=== PATIENT | male | born 1950 | race Caucasian/White ===

== ENCOUNTER 2018-10-28 09:49 | Outpatient (REF) | payer MEDICARE, SELFPAY ==
[2018-10-28 12:19] LABS: Anion Gap 8.4 mmol/L (3-11); BUN 16 mg/dL (7-18); CO2 29.6 mmol/L (21.0-32.0); CREATININE 0.98 mg/dL (0.70-1.30); Chloride 106 mmol/L (98-107); Glucose 89 mg/dL (70-100); Potassium 4.4 mmol/L (3.5-5.1); Sodium 144 mmol/L (136-145)
[2018-10-29 09:39] LABS: PSA, Screening <0.1 ng/ml (0-4.5)
== END 2018-10-28 10:09 ==
LOC: NCHCN 09:49
PROVIDERS: PCP Internal Medicine; Visit Provider Internal Medicine
DX: I10 Essential (primary) hypertension (principal); Z12.5 Encounter for screening for malignant neoplasm of prostate
CPT/HCPCS: 80048; 84153

== ENCOUNTER 2019-10-25 08:50 | Outpatient (REF) | payer MEDICARE, SELFPAY ==
[2019-10-25 21:15] LABS: Anion Gap 8.8 mmol/L (3-11); BUN 14 mg/dL (7-18); CO2 28.2 mmol/L (21.0-32.0); CREATININE 0.97 mg/dL (0.70-1.30); Calcium 8.5 mg/dL (8.5-10.1); Chloride 105 mmol/L (98-107); Glucose 90 mg/dL (74-106); Potassium 4.5 mmol/L (3.5-5.1); Sodium 142 mmol/L (136-145)
[2019-10-27 09:02] LABS: PSA, Screening <0.1 ng/mL (0.0-4.5)
== END 2019-10-25 09:10 ==
LOC: NCHCN 08:50
PROVIDERS: PCP Internal Medicine; Visit Provider Internal Medicine
DX: I10 Essential (primary) hypertension (principal); C61 Malignant neoplasm of prostate
CPT/HCPCS: 80048; 84153

== ENCOUNTER 2020-02-22 12:03 | Outpatient (REF) | payer MEDICARE, SELFPAY ==
[2020-02-22 22:20] LABS: HGB 10.9 g/dL (13.5-17.5); MCH 32.4 pg (27.0-33.0); MCHC 31.1 % (32.0-36.0); MCV 104.2 fL (80-95); MPV 10.7 fL (8.0-11.0); RBC 3.36 10^6/uL (4.36-5.78); RDW 18.9 % (11.8-14.1); RDW-SD 70.7 fL; WBC 17.16 10^3/uL (4.4-10.8)
[2020-02-22 23:19] LABS: Platelet Count 64 10^3/uL (130-400)
== END 2020-02-22 12:23 ==
LOC: NCHCN 12:03
PROVIDERS: PCP Internal Medicine; Visit Provider Internal Medicine
DX: K62.5 Hemorrhage of anus and rectum (principal)
CPT/HCPCS: 85027

== ENCOUNTER 2020-02-23 11:00 | Outpatient (REF) | payer MEDICARE, SELFPAY ==
[2020-02-23 21:19] LABS: Basophils % 1.4; MCH 32.4 pg (27.0-33.0); Nucleated RBC 1 %
[2020-02-23 21:22] LABS: Abs Immature Grans 1.19 10^3/uL (0.0-0.06); HCT 35.1 % (40.0-50.0); HGB 10.9 g/dL (13.5-17.5); Immature Grans % 6.5; Lymphocytes % 21.7; MCHC 31.1 % (32.0-36.0); MCV 104.5 fL (80-95); MPV 10.9 fL (8.0-11.0); Monocytes % 20.1; Neutrophils % 48.3; RBC 3.36 10^6/uL (4.36-5.78); RDW 19.2 % (11.8-14.1); RDW-SD 71.6 fL; WBC 18.22 10^3/uL (4.4-10.8)
[2020-02-23 21:26] LABS: Prothrombin Time 9.9 sec (9.3-11.0)
[2020-02-23 21:47] LABS: Absolute Basophil Count 0.26 10^3/uL (0.0-0.2); Absolute Eosinophil Count 0.36 10^3/uL (0.0-0.7); Absolute Lymphocyte Count 3.95 10^3/uL (1.2-3.4); Absolute Monocyte Count 3.66 10^3/uL (0.1-0.8)
[2020-02-23 22:12] LABS: ALT 19 U/L (16-63); AST 19 U/L (15-37); Albumin 4.2 g/dL (3.4-5.0); Alkaline Phosphatase 156 U/L (46-116); Anion Gap 11.3 mmol/L (3-11); BUN 14 mg/dL (7-18); Bilirubin, Total 0.6 mg/dL (0.2-1.0); CO2 24.7 mmol/L (21.0-32.0); CREATININE 0.94 mg/dL (0.70-1.30); Calcium 8.6 mg/dL (8.5-10.1); Chloride 104 mmol/L (98-107); Glucose 94 mg/dL (74-106); Potassium 4.4 mmol/L (3.5-5.1); Sodium 140 mmol/L (136-145); Total Protein 7.2 g/dL (6.4-8.2)
[2020-02-23 22:14] LABS: Platelet Count 61 10^3/uL (130-400)
[2020-02-23 22:15] LABS: Anisocytosis 3+; Diff Comment PLT Morph Reviewed; Macrocytosis 3+; Stomatocytes 2+
[2020-02-23 22:37] LABS: LDH 362 U/L (85-227)
[2020-02-23 23:16] LABS: Folate 7.5 ng/mL (8.6-20.0)
[2020-02-23 23:20] LABS: Vitamin B12 > 2000 pg/mL (193-986)
[2020-02-28 00:07] LABS: Beta-2-Microglobulin 2.66 mcg/mL
[2020-03-13 15:37] LABS: Haptoglobin 20 mg/dL (30-200)
== END 2020-02-23 11:20 ==
LOC: NCHCN 11:00
PROVIDERS: PCP Internal Medicine; Visit Provider Internal Medicine
DX: D69.6 Thrombocytopenia, unspecified (principal); D53.9 Nutritional anemia, unspecified; K62.5 Hemorrhage of anus and rectum
CPT/HCPCS: 80053; 82232; 82607; 82746; 83010; 83615; 85025; 85045; 85610

== ENCOUNTER 2020-04-12 02:29 | Outpatient (RCR) | payer MEDICARE, SELFPAY ==
[2020-04-09 08:48] LABS: Absolute Basophil Count 0.01 10^3/uL (0.0-0.2); Absolute Eosinophil Count 0.03 10^3/uL (0.0-0.7); Absolute Lymphocyte Count 1.18 10^3/uL (1.2-3.4); Absolute Monocyte Count 1.18 10^3/uL (0.1-0.8); Basophils % 0.4; Eosinophils % 1.1; HCT 33.1 % (40.0-50.0); HGB 10.7 g/dL (13.5-17.5); Immature Grans % 0.4; Lymphocytes % 43.9; MCH 32.5 pg (27.0-33.0); MCHC 32.3 % (32.0-36.0); MCV 100.6 fL (80-95); MPV 9.2 fL (8.0-11.0); Monocytes % 43.9; Neutrophils % 10.3; RBC 3.29 10^6/uL (4.36-5.78); RDW 17.6 % (11.8-14.1); RDW-SD 62.4 fL; WBC 2.69 10^3/uL (4.4-10.8)
[2020-04-09 09:00] LABS: ALT 23 U/L (16-63); AST 16 U/L (15-37); Alkaline Phosphatase 82 U/L (46-116); Anion Gap 8.3 mmol/L (3-11); BUN 11 mg/dL (7-18); CO2 26.7 mmol/L (21.0-32.0); CREATININE 1.22 mg/dL (0.70-1.30); Calcium 8.6 mg/dL (8.5-10.1); Chloride 103 mmol/L (98-107); Estimated GFR 58.73 (mL/min/1.73m2); Glucose 126 mg/dL (74-106); Potassium 3.9 mmol/L (3.5-5.1); Sodium 138 mmol/L (136-145); Total Protein 7.3 g/dL (6.4-8.2)
[2020-04-09 09:14] LABS: Absolute Neutrophil Count 0.28 10^3/uL (1.2-6.7); Nucleated RBC 0 %; Platelet Count 37 10^3/uL (130-400)
[2020-04-09 09:15] LABS: Anisocytosis 2+; Diff Comment Diff Reviewed; Howell-Jolly Bodies Present; Hypochromasia 1+; Macrocytosis 1+; Microcytosis 1+; Polychromasia Present
[2020-04-12 08:50] LABS: Abs Immature Grans 0.02 10^3/uL (0.0-0.06); Absolute Eosinophil Count 0.03 10^3/uL (0.0-0.7); Absolute Lymphocyte Count 1.44 10^3/uL (1.2-3.4); Absolute Monocyte Count 1.35 10^3/uL (0.1-0.8); HCT 35.1 % (40.0-50.0); HGB 10.9 g/dL (13.5-17.5); Immature Grans % 0.6; Lymphocytes % 46.5; MCH 32.2 pg (27.0-33.0); MCHC 31.1 % (32.0-36.0); MCV 103.5 fL (80-95); MPV 10.2 fL (8.0-11.0); Monocytes % 43.5; Neutrophils % 8.4; Nucleated RBC 1 %; RBC 3.39 10^6/uL (4.36-5.78); RDW 18.5 % (11.8-14.1); RDW-SD 69.9 fL
[2020-04-12 09:09] LABS: ALT 20 U/L (16-63); AST 14 U/L (15-37); Alkaline Phosphatase 85 U/L (46-116); BUN 12 mg/dL (7-18); Bilirubin, Total 0.9 mg/dL (0.2-1.0); CREATININE 1.11 mg/dL (0.70-1.30); Calcium 8.6 mg/dL (8.5-10.1); Chloride 102 mmol/L (98-107); Glucose 116 mg/dL (74-106); Potassium 3.8 mmol/L (3.5-5.1); Sodium 137 mmol/L (136-145); Total Protein 7.5 g/dL (6.4-8.2)
[2020-04-12 09:11] LABS: Anisocytosis 2+; Diff Comment Agrees w/ Instrument
[2020-04-12 09:12] LABS: Macrocytosis 2+; Poikilocytes 1+; Polychromasia Present
[2020-04-12 09:14] LABS: Absolute Neutrophil Count 0.26 10^3/uL (1.2-6.7); Platelet Count 24 10^3/uL (130-400)
== END 2020-04-12 23:59 | disposition home or self-care (01) ==
LOC: INF 02:29
PROVIDERS: Internal Medicine; PCP Internal Medicine; Visit Provider Internal Medicine Hematology & Oncology
DX: C81.90 Hodgkin lymphoma, unspecified, unspecified site (principal)
CPT/HCPCS: 36415; 80053; 86850; 86900; 86901; 85025

== ENCOUNTER 2020-05-10 02:21 | Outpatient (RCR) | payer MEDICARE, SELFPAY ==
[2020-04-20 09:28] LABS: Abs Immature Grans 0.02 10^3/uL (0.0-0.06); Absolute Basophil Count 0.02 10^3/uL (0.0-0.2); Absolute Eosinophil Count 0.03 10^3/uL (0.0-0.7); Absolute Lymphocyte Count 1.36 10^3/uL (1.2-3.4); Absolute Monocyte Count 1.13 10^3/uL (0.1-0.8); Basophils % 0.7; Eosinophils % 1.1; HCT 37.2 % (40.0-50.0); HGB 11.6 g/dL (13.5-17.5); Immature Grans % 0.7; Lymphocytes % 47.9; MCH 32.2 pg (27.0-33.0); MCHC 31.2 % (32.0-36.0); MCV 103.3 fL (80-95); MPV 10.1 fL (8.0-11.0); Monocytes % 39.8; Neutrophils % 9.8; Nucleated RBC 0 %; RDW 18.2 % (11.8-14.1); WBC 2.84 10^3/uL (4.4-10.8)
[2020-04-20 09:39] LABS: ALT 24 U/L (16-63); AST 15 U/L (15-37); Alkaline Phosphatase 91 U/L (46-116); Anion Gap 9.5 mmol/L (3-11); BUN 10 mg/dL (7-18); Bilirubin, Total 0.7 mg/dL (0.2-1.0); CO2 26.5 mmol/L (21.0-32.0); CREATININE 1.11 mg/dL (0.70-1.30); Calcium 8.7 mg/dL (8.5-10.1); Chloride 103 mmol/L (98-107); Glucose 107 mg/dL (74-106); Potassium 3.5 mmol/L (3.5-5.1); Sodium 139 mmol/L (136-145); Total Protein 7.7 g/dL (6.4-8.2)
[2020-04-20 09:53] LABS: Anisocytosis 1+; Diff Comment Diff Reviewed; Macrocytosis 1+; Polychromasia Present
[2020-04-20 09:54] LABS: Poikilocytes 1+
[2020-04-20 09:56] LABS: Absolute Neutrophil Count 0.28 10^3/uL (1.2-6.7); Platelet Count 28 10^3/uL (130-400)
[2020-04-23 08:38] LABS: Abs Immature Grans 0.01 10^3/uL (0.0-0.06); Absolute Basophil Count 0.01 10^3/uL (0.0-0.2); Absolute Eosinophil Count 0.01 10^3/uL (0.0-0.7); Absolute Lymphocyte Count 1.32 10^3/uL (1.2-3.4); Absolute Monocyte Count 0.77 10^3/uL (0.1-0.8); Basophils % 0.4; Eosinophils % 0.4; HGB 11.8 g/dL (13.5-17.5); Immature Grans % 0.4; Lymphocytes % 55.5; MCH 31.9 pg (27.0-33.0); MCHC 31.1 % (32.0-36.0); MCV 102.7 fL (80-95); MPV 9.3 fL (8.0-11.0); Monocytes % 32.4; Neutrophils % 10.9; Nucleated RBC 0 %; RDW 17.7 % (11.8-14.1); RDW-SD 67.6 fL; WBC 2.38 10^3/uL (4.4-10.8)
[2020-04-23 09:10] LABS: ALT 25 U/L (16-63); AST 17 U/L (15-37); Albumin 3.9 g/dL (3.4-5.0); Alkaline Phosphatase 90 U/L (46-116); Anion Gap 6.8 mmol/L (3-11); BUN 9 mg/dL (7-18); Bilirubin, Total 0.9 mg/dL (0.2-1.0); CO2 27.2 mmol/L (21.0-32.0); CREATININE 1.09 mg/dL (0.70-1.30); Calcium 8.5 mg/dL (8.5-10.1); Chloride 103 mmol/L (98-107); Glucose 118 mg/dL (74-106); Potassium 3.5 mmol/L (3.5-5.1); Sodium 137 mmol/L (136-145); Total Protein 7.4 g/dL (6.4-8.2)
[2020-04-23 09:26] LABS: Absolute Neutrophil Count 0.26 10^3/uL (1.2-6.7)
[2020-04-23 09:28] LABS: Diff Comment Agrees w/ Instrument; Platelet Count 30 10^3/uL (130-400)
[2020-04-23 09:29] LABS: Anisocytosis 2+; Basophilic Stippling Present; Hypochromasia 1+; Polychromasia Present
[2020-04-26 08:32] LABS: Abs Immature Grans 0.03 10^3/uL (0.0-0.06); Absolute Basophil Count 0.03 10^3/uL (0.0-0.2); Absolute Eosinophil Count 0.01 10^3/uL (0.0-0.7); Absolute Lymphocyte Count 1.12 10^3/uL (1.2-3.4); Absolute Monocyte Count 0.47 10^3/uL (0.1-0.8); Basophils % 1.5; Eosinophils % 0.5; HCT 36.5 % (40.0-50.0); HGB 11.3 g/dL (13.5-17.5); Immature Grans % 1.5; Lymphocytes % 57.7; MCH 31.6 pg (27.0-33.0); MPV 9.5 fL (8.0-11.0); Monocytes % 24.2; Neutrophils % 14.6; Nucleated RBC 0 %; Platelet Count 37 10^3/uL (130-400); RBC 3.58 10^6/uL (4.36-5.78); RDW 16.9 % (11.8-14.1); RDW-SD 63.7 fL
[2020-04-26 08:44] LABS: ALT 20 U/L (16-63); AST 14 U/L (15-37); Albumin 3.7 g/dL (3.4-5.0); Alkaline Phosphatase 89 U/L (46-116); Anion Gap 7.7 mmol/L (3-11); BUN 11 mg/dL (7-18); Bilirubin, Total 0.8 mg/dL (0.2-1.0); CO2 27.3 mmol/L (21.0-32.0); CREATININE 1.12 mg/dL (0.70-1.30); Calcium 8.5 mg/dL (8.5-10.1); Chloride 104 mmol/L (98-107); Glucose 117 mg/dL (74-106); Potassium 3.7 mmol/L (3.5-5.1); Sodium 139 mmol/L (136-145); Total Protein 7.2 g/dL (6.4-8.2)
[2020-04-26 08:54] LABS: Absolute Neutrophil Count 0.28 10^3/uL (1.2-6.7); WBC 1.94 10^3/uL (4.4-10.8)
[2020-04-26 08:55] LABS: Diff Comment Diff Reviewed; Macrocytosis 1+; Polychromasia Present
[2020-04-30 08:46] LABS: Abs Immature Grans 0.04 10^3/uL (0.0-0.06); Absolute Basophil Count 0.03 10^3/uL (0.0-0.2); Absolute Eosinophil Count 0.02 10^3/uL (0.0-0.7); Absolute Lymphocyte Count 1.27 10^3/uL (1.2-3.4); Absolute Monocyte Count 0.32 10^3/uL (0.1-0.8); Basophils % 1.5; HCT 36.8 % (40.0-50.0); HGB 11.4 g/dL (13.5-17.5); Lymphocytes % 63.5; MCH 30.9 pg (27.0-33.0); MCV 99.7 fL (80-95); MPV 8.8 fL (8.0-11.0); Nucleated RBC 0 %; Platelet Count 44 10^3/uL (130-400); RBC 3.69 10^6/uL (4.36-5.78); RDW 16.5 % (11.8-14.1); RDW-SD 60.5 fL
[2020-04-30 09:01] LABS: ALT 21 U/L (16-63); AST 14 U/L (15-37); Albumin 3.7 g/dL (3.4-5.0); Alkaline Phosphatase 83 U/L (46-116); Anion Gap 8.8 mmol/L (3-11); BUN 11 mg/dL (7-18); Bilirubin, Total 0.6 mg/dL (0.2-1.0); CO2 27.2 mmol/L (21.0-32.0); CREATININE 1.09 mg/dL (0.70-1.30); Calcium 8.5 mg/dL (8.5-10.1); Chloride 106 mmol/L (98-107); Glucose 123 mg/dL (74-106); Potassium 3.7 mmol/L (3.5-5.1); Sodium 142 mmol/L (136-145); Total Protein 7.2 g/dL (6.4-8.2)
[2020-04-30 09:06] LABS: Absolute Neutrophil Count 0.32 10^3/uL (1.2-6.7)
[2020-04-30 09:07] LABS: Anisocytosis 1+; Diff Comment Diff Reviewed; Hypochromasia 1+; Polychromasia Present
[2020-04-30 09:08] LABS: Basophilic Stippling Present; Stomatocytes 2+
[2020-05-07] MEDS: Normal Saline Flush 10 ML SYR IVP (13:00)
[2020-05-07 13:24] LABS: Abs Immature Grans 0.05 10^3/uL (0.0-0.06); Absolute Basophil Count 0.07 10^3/uL (0.0-0.2); Absolute Eosinophil Count 0.02 10^3/uL (0.0-0.7); Absolute Lymphocyte Count 1.53 10^3/uL (1.2-3.4); Absolute Monocyte Count 0.52 10^3/uL (0.1-0.8); Absolute Neutrophil Count 0.66 10^3/uL (1.2-6.7); Basophils % 2.5; Eosinophils % 0.7; HCT 38.2 % (40.0-50.0); Immature Grans % 1.8; Lymphocytes % 53.7; MCH 30.2 pg (27.0-33.0); MCHC 31.4 % (32.0-36.0); MPV 10.1 fL (8.0-11.0); Monocytes % 18.2; Neutrophils % 23.1; Nucleated RBC 0 %; RBC 3.98 10^6/uL (4.36-5.78); RDW 15.7 % (11.8-14.1); RDW-SD 55.9 fL; WBC 2.85 10^3/uL (4.4-10.8)
[2020-05-07 13:36] LABS: ALT 19 U/L (16-63); AST 17 U/L (15-37); Albumin 3.7 g/dL (3.4-5.0); Alkaline Phosphatase 95 U/L (46-116); Anion Gap 5.8 mmol/L (3-11); BUN 10 mg/dL (7-18); Bilirubin, Total 0.6 mg/dL (0.2-1.0); CO2 27.2 mmol/L (21.0-32.0); CREATININE 1.29 mg/dL (0.70-1.30); Calcium 8.5 mg/dL (8.5-10.1); Chloride 103 mmol/L (98-107); Estimated GFR 55.06 (mL/min/1.73m2); Glucose 124 mg/dL (74-106); Sodium 136 mmol/L (136-145); Total Protein 7.5 g/dL (6.4-8.2)
[2020-05-07 13:52] LABS: Platelet Count 42 10^3/uL (130-400)
[2020-05-07 13:53] LABS: Diff Comment Diff Reviewed
[2020-05-07 13:54] LABS: Anisocytosis 1+; Basophilic Stippling Present; Poikilocytes 2+; Polychromasia Present
[2020-05-10] MEDS: Normal Saline Flush 10 ML SYR IVP (12:58)
[2020-05-10 13:11] LABS: Abs Immature Grans 0.04 10^3/uL (0.0-0.06); HCT 37.2 % (40.0-50.0); HGB 11.6 g/dL (13.5-17.5); MCH 29.7 pg (27.0-33.0); MCHC 31.2 % (32.0-36.0); MCV 95.1 fL (80-95); MPV 10.4 fL (8.0-11.0); Nucleated RBC 0 %; RBC 3.91 10^6/uL (4.36-5.78); RDW 15.7 % (11.8-14.1); RDW-SD 54.9 fL; WBC 2.95 10^3/uL (4.4-10.8)
[2020-05-10 13:19] LABS: Anion Gap 9.7 mmol/L (3-11); BUN 12 mg/dL (7-18); CO2 24.3 mmol/L (21.0-32.0); CREATININE 1.2 mg/dL (0.70-1.30); Calcium 8.5 mg/dL (8.5-10.1); Chloride 99 mmol/L (98-107); Estimated GFR 59.86 (mL/min/1.73m2); Glucose 158 mg/dL (74-106); Potassium 3.7 mmol/L (3.5-5.1); Sodium 133 mmol/L (136-145)
[2020-05-10 13:38] LABS: Platelet Count 46 10^3/uL (130-400)
[2020-05-10 13:39] LABS: Absolute Neutrophil Count 0.77 10^3/uL (1.2-6.7); Bands % 0
[2020-05-10 13:40] LABS: Absolute Lymphocyte Count 1.48 10^3/uL (1.2-3.4); Absolute Monocyte Count 0.71 10^3/uL (0.1-0.8); Atypical Lymphocytes % 17; Diff Comment Manual Differential; Hypochromasia 1+; Polychromasia Present; Stomatocytes 2+
[2020-05-10 13:41] LABS: Poikilocytes 2+
== END 2020-05-13 23:59 | disposition home or self-care (01) ==
LOC: INF 02:21
PROVIDERS: PCP Internal Medicine; Visit Provider Internal Medicine Hematology
DX: C92.A0 Acute myeloid leukemia with multilineage dysplasia, not having achieved remission (principal); C81.90 Hodgkin lymphoma, unspecified, unspecified site; C92.00 Acute myeloblastic leukemia, not having achieved remission; C92.40 Acute promyelocytic leukemia, not having achieved remission
CPT/HCPCS: 36415; 36591; 80048; 80053; 86900; 86901; 84550; 85025

== ENCOUNTER 2020-06-07 02:43 | Outpatient (RCR) | payer MEDICARE, SELFPAY ==
[2020-05-14] MEDS: Normal Saline Flush 10 ML SYR IVP (13:15)
[2020-05-14 13:27] LABS: Abs Immature Grans 0.01 10^3/uL (0.0-0.06); Absolute Basophil Count 0.01 10^3/uL (0.0-0.2); Absolute Lymphocyte Count 1.21 10^3/uL (1.2-3.4); Absolute Neutrophil Count 0.52 10^3/uL (1.2-6.7); Basophils % 0.4; HCT 35.6 % (40.0-50.0); HGB 11.2 g/dL (13.5-17.5); Immature Grans % 0.4; Lymphocytes % 53.8; MCH 29.2 pg (27.0-33.0); MCHC 31.5 % (32.0-36.0); MCV 92.7 fL (80-95); MPV 10.1 fL (8.0-11.0); Monocytes % 22.2; Neutrophils % 23.2; Nucleated RBC 0 %; RBC 3.84 10^6/uL (4.36-5.78); RDW 15.6 % (11.8-14.1); RDW-SD 52.7 fL; WBC 2.25 10^3/uL (4.4-10.8)
[2020-05-14 13:35] LABS: Anion Gap 10.5 mmol/L (3-11); BUN 16 mg/dL (7-18); CO2 24.5 mmol/L (21.0-32.0); CREATININE 1.1 mg/dL (0.70-1.30); Calcium 8.6 mg/dL (8.5-10.1); Chloride 102 mmol/L (98-107); Glucose 144 mg/dL (74-106); Potassium 3.7 mmol/L (3.5-5.1); Sodium 137 mmol/L (136-145); Uric Acid 4.7 mg/dL (3.5-7.2)
[2020-05-14 13:36] LABS: Anisocytosis 1+; Diff Comment Diff Reviewed; Platelet Count 46 10^3/uL (130-400)
[2020-05-14 13:37] LABS: Poikilocytes 1+
[2020-05-17 09:00] LABS: Abs Immature Grans 0.01 10^3/uL (0.0-0.06); Absolute Basophil Count 0.01 10^3/uL (0.0-0.2); Absolute Lymphocyte Count 1.35 10^3/uL (1.2-3.4); Absolute Monocyte Count 0.41 10^3/uL (0.1-0.8); Absolute Neutrophil Count 0.65 10^3/uL (1.2-6.7); Basophils % 0.4; HCT 34.6 % (40.0-50.0); HGB 10.9 g/dL (13.5-17.5); Immature Grans % 0.4; Lymphocytes % 55.6; MCH 29.1 pg (27.0-33.0); MCHC 31.5 % (32.0-36.0); MCV 92.5 fL (80-95); MPV 9.9 fL (8.0-11.0); Monocytes % 16.9; Neutrophils % 26.7; Nucleated RBC 0 %; RBC 3.74 10^6/uL (4.36-5.78); RDW 15.4 % (11.8-14.1); RDW-SD 52.1 fL; WBC 2.43 10^3/uL (4.4-10.8)
[2020-05-17 09:03] LABS: Anion Gap 6.2 mmol/L (3-11); BUN 10 mg/dL (7-18); CO2 27.8 mmol/L (21.0-32.0); CREATININE 1.1 mg/dL (0.70-1.30); Calcium 8.7 mg/dL (8.5-10.1); Chloride 105 mmol/L (98-107); Glucose 118 mg/dL (74-106); Potassium 3.6 mmol/L (3.5-5.1); Sodium 139 mmol/L (136-145); Uric Acid 4.3 mg/dL (3.5-7.2)
[2020-05-17 09:21] LABS: Platelet Count 38 10^3/uL (130-400)
[2020-05-17 09:22] LABS: Anisocytosis 1+; Diff Comment Diff Reviewed; Polychromasia Present
[2020-05-21] MEDS: Normal Saline Flush 10 ML SYR IVP ×2 (08:37→14:53)
[2020-05-21 08:50] LABS: Abs Immature Grans 0.01 10^3/uL (0.0-0.06); Absolute Lymphocyte Count 1.04 10^3/uL (1.2-3.4); Absolute Monocyte Count 0.48 10^3/uL (0.1-0.8); HCT 33.7 % (40.0-50.0); HGB 10.6 g/dL (13.5-17.5); Immature Grans % 0.6; Lymphocytes % 58.8; MCH 29.2 pg (27.0-33.0); MCHC 31.5 % (32.0-36.0); MCV 92.8 fL (80-95); MPV 9.9 fL (8.0-11.0); Monocytes % 27.1; Neutrophils % 13.5; Nucleated RBC 0 %; RBC 3.63 10^6/uL (4.36-5.78); RDW 15.9 % (11.8-14.1)
[2020-05-21 09:04] LABS: Anion Gap 8.1 mmol/L (3-11); BUN 10 mg/dL (7-18); CO2 24.9 mmol/L (21.0-32.0); CREATININE 0.9 mg/dL (0.70-1.30); Chloride 107 mmol/L (98-107); Glucose 115 mg/dL (74-106); Potassium 3.8 mmol/L (3.5-5.1); Sodium 140 mmol/L (136-145)
[2020-05-21 09:21] LABS: Platelet Count 12 10^3/uL (130-400); WBC 1.77 10^3/uL (4.4-10.8)
[2020-05-21 09:22] LABS: Absolute Neutrophil Count 0.24 10^3/uL (1.2-6.7); Anisocytosis 1+; Diff Comment Diff Reviewed; Hypochromasia 1+
[2020-05-21 09:23] LABS: Polychromasia Present
[2020-05-21 13:35] VITALS: BP 108/71; PULSE 82; RESP 19; TEMP 36.7; O2SAT 96
[2020-05-21 13:51] VITALS: BP 107/69; PULSE 79; RESP 16; TEMP 36.5; O2SAT 96
[2020-05-24] MEDS: Normal Saline Flush 10 ML SYR IVP ×2 (08:24→13:38)
[2020-05-24 08:40] LABS: Lymphocytes % 58.8; MCH 29.2 pg (27.0-33.0); MCHC 31.3 % (32.0-36.0); MCV 93.6 fL (80-95); MPV 10.1 fL (8.0-11.0); Monocytes % 23.5; Neutrophils % 17.7; Nucleated RBC 0 %; RBC 3.42 10^6/uL (4.36-5.78); RDW 16.5 % (11.8-14.1)
[2020-05-24 08:50] LABS: Anion Gap 8.1 mmol/L (3-11); BUN 10 mg/dL (7-18); CO2 25.9 mmol/L (21.0-32.0); CREATININE 0.9 mg/dL (0.70-1.30); Calcium 8.3 mg/dL (8.5-10.1); Chloride 106 mmol/L (98-107); Glucose 113 mg/dL (74-106); Potassium 3.9 mmol/L (3.5-5.1); Sodium 140 mmol/L (136-145)
[2020-05-24 09:05] LABS: Diff Comment Agrees w/ Instrument
[2020-05-24 09:10] LABS: Platelet Count 11 10^3/uL (130-400)
[2020-05-24 09:11] LABS: Hypochromasia 2+
[2020-05-24 09:12] LABS: Poikilocytes 1+
[2020-05-24 09:14] LABS: Uric Acid 4.9 mg/dL (3.5-7.2)
[2020-05-24 13:09] VITALS: BP 113/76; PULSE 79; RESP 18; TEMP 36; O2SAT 99
[2020-05-24 13:31] VITALS: BP 114/64; PULSE 77; RESP 18; TEMP 36.6; O2SAT 98
[2020-05-28 08:49] LABS: Abs Immature Grans 0.01 10^3/uL (0.0-0.06); Absolute Basophil Count 0.01 10^3/uL (0.0-0.2); Absolute Lymphocyte Count 1.13 10^3/uL (1.2-3.4); Absolute Monocyte Count 0.17 10^3/uL (0.1-0.8); Basophils % 0.6; HCT 30.5 % (40.0-50.0); HGB 9.7 g/dL (13.5-17.5); Immature Grans % 0.6; Lymphocytes % 64.9; MCH 29.4 pg (27.0-33.0); MCHC 31.8 % (32.0-36.0); MCV 92.4 fL (80-95); MPV 9.7 fL (8.0-11.0); Monocytes % 9.8; Neutrophils % 24.1; Nucleated RBC 0 %; RDW 16.3 % (11.8-14.1); RDW-SD 54.5 fL
[2020-05-28 09:02] LABS: Anion Gap 7.3 mmol/L (3-11); BUN 13 mg/dL (7-18); CO2 24.7 mmol/L (21.0-32.0); Calcium 8.3 mg/dL (8.5-10.1); Chloride 105 mmol/L (98-107); Glucose 114 mg/dL (74-106); Potassium 3.7 mmol/L (3.5-5.1); Sodium 137 mmol/L (136-145)
[2020-05-28 09:13] LABS: Uric Acid 4.5 mg/dL (3.5-7.2)
[2020-05-28 09:40] LABS: Absolute Neutrophil Count 0.42 10^3/uL (1.2-6.7); WBC 1.74 10^3/uL (4.4-10.8)
[2020-05-28 09:42] LABS: Diff Comment Agrees w/ Instrument; Platelet Count 8 10^3/uL (130-400)
[2020-05-28 09:44] LABS: Anisocytosis 2+; Hypochromasia 1+; Stomatocytes 2+
[2020-05-28 13:12] VITALS: BP 111/70; PULSE 89; RESP 19; TEMP 36.6; O2SAT 97
[2020-05-28] MEDS: Normal Saline Flush 10 ML SYR IVP (14:02)
[2020-05-31] MEDS: Normal Saline Flush 10 ML SYR IVP (08:20)
[2020-05-31 08:45] LABS: Abs Immature Grans 0.01 10^3/uL (0.0-0.06); HCT 27.2 % (40.0-50.0); HGB 8.6 g/dL (13.5-17.5); MCH 28.7 pg (27.0-33.0); MCHC 31.6 % (32.0-36.0); MCV 90.7 fL (80-95); MPV 10.7 fL (8.0-11.0); Nucleated RBC 0 %; RDW-SD 51.8 fL
[2020-05-31 08:54] LABS: Anion Gap 8.1 mmol/L (3-11); BUN 12 mg/dL (7-18); CO2 25.9 mmol/L (21.0-32.0); CREATININE 0.9 mg/dL (0.70-1.30); Calcium 8.3 mg/dL (8.5-10.1); Chloride 106 mmol/L (98-107); Glucose 98 mg/dL (74-106); Potassium 4.1 mmol/L (3.5-5.1); Sodium 140 mmol/L (136-145); Uric Acid 4.4 mg/dL (3.5-7.2)
[2020-05-31 09:26] LABS: Platelet Count 7 10^3/uL (130-400)
[2020-05-31 09:27] LABS: Absolute Lymphocyte Count 1.17 10^3/uL (1.2-3.4); Absolute Monocyte Count 0.03 10^3/uL (0.1-0.8); Atypical Lymphocytes % 0; Bands % 0
[2020-05-31 09:28] LABS: Anisocytosis 2+; Basophilic Stippling Present; Diff Comment Manual Differential; Hypochromasia 2+; Polychromasia Present
[2020-05-31 13:12] VITALS: BP 110/66; PULSE 81; RESP 16; TEMP 36.7; O2SAT 96
[2020-05-31 13:30] VITALS: BP 117/70; PULSE 81; RESP 18; TEMP 36.2; O2SAT 99
[2020-06-07 08:41] LABS: Absolute Basophil Count 0.02 10^3/uL (0.0-0.2); Absolute Eosinophil Count 0.01 10^3/uL (0.0-0.7); Absolute Lymphocyte Count 1.12 10^3/uL (1.2-3.4); Absolute Monocyte Count 0.09 10^3/uL (0.1-0.8); Basophils % 1.4; Eosinophils % 0.7; HCT 24.9 % (40.0-50.0); HGB 8.3 g/dL (13.5-17.5); Lymphocytes % 77.8; MCH 29.1 pg (27.0-33.0); MCHC 33.3 % (32.0-36.0); MCV 87.4 fL (80-95); Monocytes % 6.3; Neutrophils % 13.8; Nucleated RBC 0 %; RBC 2.85 10^6/uL (4.36-5.78); RDW 15.5 % (11.8-14.1); RDW-SD 48.6 fL
[2020-06-07 08:49] LABS: Anion Gap 7.3 mmol/L (3-11); BUN 14 mg/dL (7-18); CO2 25.7 mmol/L (21.0-32.0); CREATININE 0.9 mg/dL (0.70-1.30); Calcium 8.5 mg/dL (8.5-10.1); Chloride 105 mmol/L (98-107); Glucose 114 mg/dL (74-106); Potassium 3.7 mmol/L (3.5-5.1); Sodium 138 mmol/L (136-145); Uric Acid 3.8 mg/dL (3.5-7.2)
[2020-06-07 09:03] LABS: Platelet Count 31 10^3/uL (130-400)
[2020-06-07 09:04] LABS: Diff Comment Agrees w/ Instrument
[2020-06-07 09:05] LABS: Anisocytosis 1+; Basophilic Stippling Present; Hypochromasia 2+; Poikilocytes 1+; Polychromasia Present
[2020-06-07 09:07] LABS: WBC 1.44 10^3/uL (4.4-10.8)
[2020-06-07] MEDS: Normal Saline Flush 10 ML SYR IVP (09:15)
== END 2020-06-10 23:59 | disposition home or self-care (01) ==
LOC: INF 02:43
PROVIDERS: PCP Internal Medicine; Visit Provider Internal Medicine Hematology
DX: C92.00 Acute myeloblastic leukemia, not having achieved remission (principal); Z45.2 Encounter for adjustment and management of vascular access device
CPT/HCPCS: 36415; 36430; 36591; 80048; 86850; 86900; 86901; 86945; 84550; 85025; P9035

== ENCOUNTER 2020-07-09 02:57 | Outpatient (RCR) | payer MEDICARE, SELFPAY ==
[2020-06-11] VITALS (9 sets, daily range): BP systolic 103–118; BP diastolic 51–71; PULSE 72–82; RESP 16–18; TEMP 36.2–37.1; O2SAT 96–100
[2020-06-11] MEDS: Normal Saline Flush 10 ML SYR IVP (09:07)
[2020-06-11 09:22] LABS: HGB 7.6 g/dL (13.5-17.5); MCH 28.8 pg (27.0-33.0); MCV 87.1 fL (80-95); MPV 9.6 fL (8.0-11.0); Nucleated RBC 0 %; Platelet Count 38 10^3/uL (130-400); RBC 2.64 10^6/uL (4.36-5.78); RDW 15.5 % (11.8-14.1); RDW-SD 47.3 fL
[2020-06-11 09:31] LABS: BUN 13 mg/dL (7-18); Calcium 8.3 mg/dL (8.5-10.1); Chloride 104 mmol/L (98-107); Glucose 131 mg/dL (74-106); Sodium 136 mmol/L (136-145); Uric Acid 4.2 mg/dL (3.5-7.2)
[2020-06-11 09:50] LABS: Absolute Neutrophil Count 0.15 10^3/uL (1.2-6.7); WBC 1.39 10^3/uL (4.4-10.8)
[2020-06-11 09:51] LABS: Absolute Lymphocyte Count 1.15 10^3/uL (1.2-3.4); Bands % 3
[2020-06-11 09:52] LABS: Absolute Basophil Count 0.03 10^3/uL (0.0-0.2); Absolute Monocyte Count 0.06 10^3/uL (0.1-0.8)
[2020-06-11 09:53] LABS: Basophilic Stippling Present; Diff Comment Manual Differential; Polychromasia Present
[2020-06-14 09:19] LABS: Abs Immature Grans 0.02 10^3/uL (0.0-0.06); HCT 24.5 % (40.0-50.0); HGB 8.2 g/dL (13.5-17.5); MCH 29.2 pg (27.0-33.0); MCHC 33.5 % (32.0-36.0); MCV 87.2 fL (80-95); MPV 9.6 fL (8.0-11.0); RBC 2.81 10^6/uL (4.36-5.78); RDW 16.1 % (11.8-14.1); RDW-SD 47.5 fL; WBC 2.42 10^3/uL (4.4-10.8)
[2020-06-14 09:28] LABS: Anion Gap 8.7 mmol/L (3-11); BUN 13 mg/dL (7-18); CO2 24.3 mmol/L (21.0-32.0); CREATININE 0.9 mg/dL (0.70-1.30); Calcium 8.3 mg/dL (8.5-10.1); Chloride 103 mmol/L (98-107); Glucose 122 mg/dL (74-106); Potassium 3.7 mmol/L (3.5-5.1); Sodium 136 mmol/L (136-145); Uric Acid 4.3 mg/dL (3.5-7.2)
[2020-06-14 09:41] LABS: Platelet Count 44 10^3/uL (130-400)
[2020-06-14 09:42] LABS: Absolute Basophil Count 0.02 10^3/uL (0.0-0.2); Absolute Eosinophil Count 0.02 10^3/uL (0.0-0.7); Absolute Lymphocyte Count 1.28 10^3/uL (1.2-3.4); Absolute Monocyte Count 0.19 10^3/uL (0.1-0.8); Absolute Neutrophil Count 0.87 10^3/uL (1.2-6.7); Bands % 2; Metamyelocytes % 1; Nucleated RBC 0 %
[2020-06-14 09:43] LABS: Anisocytosis 2+; Diff Comment Manual Differential; Polychromasia Present
[2020-06-14] MEDS: Normal Saline Flush 10 ML SYR IVP (10:36)
[2020-06-18 08:38] LABS: Abs Immature Grans 0.07 10^3/uL (0.0-0.06); HGB 7.9 g/dL (13.5-17.5); MCH 29.8 pg (27.0-33.0); MCHC 32.9 % (32.0-36.0); MCV 90.6 fL (80-95); MPV 9.8 fL (8.0-11.0); Nucleated RBC 1 %; RBC 2.65 10^6/uL (4.36-5.78); RDW 18.6 % (11.8-14.1); RDW-SD 48.9 fL; WBC 2.14 10^3/uL (4.4-10.8)
[2020-06-18 08:50] LABS: Anion Gap 7.6 mmol/L (3-11); BUN 11 mg/dL (7-18); CO2 25.4 mmol/L (21.0-32.0); CREATININE 0.9 mg/dL (0.70-1.30); Calcium 7.9 mg/dL (8.5-10.1); Chloride 106 mmol/L (98-107); Glucose 133 mg/dL (74-106); Potassium 3.9 mmol/L (3.5-5.1); Sodium 139 mmol/L (136-145); Uric Acid 4.9 mg/dL (3.5-7.2)
[2020-06-18] MEDS: Normal Saline Flush 10 ML SYR IVP (08:50)
[2020-06-18 08:56] LABS: Absolute Neutrophil Count 0.62 10^3/uL (1.2-6.7); Bands % 1; Platelet Count 70 10^3/uL (130-400)
[2020-06-18 08:57] LABS: Absolute Lymphocyte Count 1.26 10^3/uL (1.2-3.4); Absolute Monocyte Count 0.21 10^3/uL (0.1-0.8)
[2020-06-18 08:58] LABS: Anisocytosis 2+; Diff Comment Manual Differential; Metamyelocytes % 2; Polychromasia Present
[2020-06-18 09:14] VITALS: BP 87/45; PULSE 76; RESP 19; TEMP 36.8; O2SAT 98
[2020-06-18 10:15] VITALS: BP 109/68; PULSE 80; RESP 18; TEMP 36.6; O2SAT 97
[2020-06-18 10:29] VITALS: BP 98/64; PULSE 80; RESP 18; TEMP 36.6; O2SAT 98
[2020-06-18 10:59] VITALS: BP 106/68; PULSE 78; RESP 18; TEMP 36.6; O2SAT 97
[2020-06-21 08:25] LABS: Abs Immature Grans 0.04 10^3/uL (0.0-0.06); Absolute Basophil Count 0.01 10^3/uL (0.0-0.2); Absolute Eosinophil Count 0.01 10^3/uL (0.0-0.7); Absolute Lymphocyte Count 1.25 10^3/uL (1.2-3.4); Absolute Monocyte Count 0.18 10^3/uL (0.1-0.8); Absolute Neutrophil Count 0.52 10^3/uL (1.2-6.7); Basophils % 0.5; Eosinophils % 0.5; HCT 26.3 % (40.0-50.0); HGB 8.7 g/dL (13.5-17.5); Lymphocytes % 62.2; MCH 30.5 pg (27.0-33.0); MCHC 33.1 % (32.0-36.0); MCV 92.3 fL (80-95); MPV 9.5 fL (8.0-11.0); Neutrophils % 25.8; Nucleated RBC 0 %; RBC 2.85 10^6/uL (4.36-5.78); RDW 20.6 % (11.8-14.1); RDW-SD 49.9 fL; WBC 2.01 10^3/uL (4.4-10.8)
[2020-06-21 08:35] LABS: Anion Gap 8.2 mmol/L (3-11); BUN 9 mg/dL (7-18); CO2 24.8 mmol/L (21.0-32.0); CREATININE 1.1 mg/dL (0.70-1.30); Calcium 7.8 mg/dL (8.5-10.1); Chloride 106 mmol/L (98-107); Glucose 158 mg/dL (74-106); Sodium 139 mmol/L (136-145); Uric Acid 5.7 mg/dL (3.5-7.2)
[2020-06-21 08:42] LABS: Anisocytosis 3+; Diff Comment Diff Reviewed; Platelet Count 81 10^3/uL (130-400)
[2020-06-21 08:43] LABS: Macrocytosis 1+; Polychromasia Present
[2020-06-21] MEDS: Normal Saline Flush 10 ML SYR IVP (09:42)
[2020-06-25 08:11] LABS: Abs Immature Grans 0.01 10^3/uL (0.0-0.06); Absolute Basophil Count 0.01 10^3/uL (0.0-0.2); Absolute Lymphocyte Count 1.12 10^3/uL (1.2-3.4); Absolute Monocyte Count 0.23 10^3/uL (0.1-0.8); Absolute Neutrophil Count 0.78 10^3/uL (1.2-6.7); Basophils % 0.5; HGB 9.6 g/dL (13.5-17.5); Immature Grans % 0.5; Lymphocytes % 52.1; MCHC 33.1 % (32.0-36.0); MCV 93.5 fL (80-95); MPV 9.2 fL (8.0-11.0); Monocytes % 10.7; Neutrophils % 36.2; Nucleated RBC 0 %; Platelet Count 100 10^3/uL (130-400); RDW 23.6 % (11.8-14.1); RDW-SD 75.9 fL; WBC 2.15 10^3/uL (4.4-10.8)
[2020-06-25 08:24] LABS: Anion Gap 7.1 mmol/L (3-11); BUN 9 mg/dL (7-18); CO2 26.9 mmol/L (21.0-32.0); Calcium 8.5 mg/dL (8.5-10.1); Chloride 105 mmol/L (98-107); Glucose 166 mg/dL (74-106); Potassium 3.9 mmol/L (3.5-5.1); Sodium 139 mmol/L (136-145); Uric Acid 5.8 mg/dL (3.5-7.2)
[2020-06-25] MEDS: Normal Saline Flush 10 ML SYR IVP (08:26)
[2020-06-28] MEDS: Normal Saline Flush 10 ML SYR IVP (08:02)
[2020-06-28 08:06] LABS: Absolute Basophil Count 0.01 10^3/uL (0.0-0.2); Absolute Lymphocyte Count 0.99 10^3/uL (1.2-3.4); Absolute Monocyte Count 0.33 10^3/uL (0.1-0.8); Absolute Neutrophil Count 1.18 10^3/uL (1.2-6.7); Basophils % 0.4; HCT 31.1 % (40.0-50.0); HGB 10.2 g/dL (13.5-17.5); Lymphocytes % 39.4; MCH 31.5 pg (27.0-33.0); MCHC 32.8 % (32.0-36.0); MPV 8.8 fL (8.0-11.0); Monocytes % 13.1; Neutrophils % 47.1; Nucleated RBC 0 %; Platelet Count 105 10^3/uL (130-400); RBC 3.24 10^6/uL (4.36-5.78); RDW 24.7 % (11.8-14.1); RDW-SD 82.3 fL; WBC 2.51 10^3/uL (4.4-10.8)
[2020-06-28 08:18] LABS: BUN 13 mg/dL (7-18); CREATININE 1.2 mg/dL (0.70-1.30); Calcium 8.6 mg/dL (8.5-10.1); Chloride 103 mmol/L (98-107); Diff Comment RBC Morph Reviewed; Estimated GFR 59.86 (mL/min/1.73m2); Glucose 166 mg/dL (74-106); Potassium 3.8 mmol/L (3.5-5.1); Sodium 137 mmol/L (136-145); Uric Acid 6.5 mg/dL (3.5-7.2)
[2020-06-28 08:20] LABS: Anisocytosis 3+; Macrocytosis 1+; Polychromasia Present
[2020-07-02] MEDS: Normal Saline Flush 10 ML SYR IVP (07:58)
[2020-07-02 08:15] LABS: Abs Immature Grans 0.01 10^3/uL (0.0-0.06); Absolute Basophil Count 0.01 10^3/uL (0.0-0.2); Absolute Lymphocyte Count 1.24 10^3/uL (1.2-3.4); Absolute Monocyte Count 0.33 10^3/uL (0.1-0.8); Absolute Neutrophil Count 1.18 10^3/uL (1.2-6.7); Basophils % 0.4; HCT 33.1 % (40.0-50.0); HGB 11.2 g/dL (13.5-17.5); Immature Grans % 0.4; Lymphocytes % 44.8; MCH 32.5 pg (27.0-33.0); MCHC 33.8 % (32.0-36.0); MCV 95.9 fL (80-95); MPV 8.5 fL (8.0-11.0); Monocytes % 11.9; Neutrophils % 42.5; Nucleated RBC 0 %; Platelet Count 119 10^3/uL (130-400); RBC 3.45 10^6/uL (4.36-5.78); RDW 24.8 % (11.8-14.1); RDW-SD 79.4 fL; WBC 2.77 10^3/uL (4.4-10.8)
[2020-07-05] MEDS: Normal Saline Flush 10 ML SYR IVP (08:00)
[2020-07-05 08:13] LABS: Abs Immature Grans 0.08 10^3/uL (0.0-0.06); Absolute Basophil Count 0.01 10^3/uL (0.0-0.2); Absolute Eosinophil Count 0.01 10^3/uL (0.0-0.7); Absolute Lymphocyte Count 1.37 10^3/uL (1.2-3.4); Absolute Monocyte Count 0.55 10^3/uL (0.1-0.8); Absolute Neutrophil Count 4.25 10^3/uL (1.2-6.7); Basophils % 0.2; Eosinophils % 0.2; HCT 32.5 % (40.0-50.0); HGB 10.8 g/dL (13.5-17.5); Immature Grans % 1.3; Lymphocytes % 21.9; MCH 32.4 pg (27.0-33.0); MCHC 33.2 % (32.0-36.0); MCV 97.6 fL (80-95); MPV 8.6 fL (8.0-11.0); Monocytes % 8.8; Neutrophils % 67.6; Nucleated RBC 0 %; RBC 3.33 10^6/uL (4.36-5.78); RDW 25.4 % (11.8-14.1); WBC 6.27 10^3/uL (4.4-10.8)
[2020-07-05 08:40] LABS: Anisocytosis 3+; Diff Comment Diff Reviewed; Macrocytosis 1+; Microcytosis 1+; Platelet Count 99 10^3/uL (130-400); Polychromasia Present
[2020-07-09] MEDS: Normal Saline Flush 10 ML SYR IVP (08:25)
[2020-07-09 08:32] LABS: Abs Immature Grans 0.02 10^3/uL (0.0-0.06); Absolute Basophil Count 0.02 10^3/uL (0.0-0.2); Basophils % 0.4; HCT 30.9 % (40.0-50.0); HGB 10.4 g/dL (13.5-17.5); Immature Grans % 0.4; MCH 33.4 pg (27.0-33.0); MCHC 33.7 % (32.0-36.0); MCV 99.4 fL (80-95); MPV 9.3 fL (8.0-11.0); Nucleated RBC 0 %; RBC 3.11 10^6/uL (4.36-5.78); WBC 4.99 10^3/uL (4.4-10.8)
[2020-07-09] MEDS: Heparin 500 UNITS/5 ML SYRINGE IV (08:46)
[2020-07-09 09:04] LABS: Absolute Monocyte Count 0.45 10^3/uL (0.1-0.8); Absolute Neutrophil Count 3.04 10^3/uL (1.2-6.7); Bands % 6
[2020-07-09 09:05] LABS: Anisocytosis 2+; Basophilic Stippling Present; Diff Comment Manual Differential; Macrocytosis 1+; Microcytosis 1+; Poikilocytes 1+; Polychromasia Present
[2020-07-09 09:06] LABS: Platelet Count 73 10^3/uL (130-400)
== END 2020-07-11 23:59 | disposition home or self-care (01) ==
LOC: INF 02:57
PROVIDERS: PCP Internal Medicine; Visit Provider Internal Medicine Hematology
DX: C92.00 Acute myeloblastic leukemia, not having achieved remission (principal)
CPT/HCPCS: 36430; 36591; 80048; 86850; 86900; 86901; 86920; 86945; 84550; 85025; 86644; P9016

== ENCOUNTER 2020-08-06 03:17 | Outpatient (RCR) | payer MEDICARE, SELFPAY ==
[2020-07-12 00:14] VITALS: BP 106/68; PULSE 78; RESP 18; TEMP 36.6
[2020-07-12 08:19] LABS: Abs Immature Grans 0.05 10^3/uL (0.0-0.06); Absolute Basophil Count 0.01 10^3/uL (0.0-0.2); Absolute Lymphocyte Count 1.07 10^3/uL (1.2-3.4); Absolute Monocyte Count 0.05 10^3/uL (0.1-0.8); Basophils % 0.3; HCT 31.7 % (40.0-50.0); HGB 10.6 g/dL (13.5-17.5); Immature Grans % 1.5; Lymphocytes % 32.6; MCH 33.1 pg (27.0-33.0); MCHC 33.4 % (32.0-36.0); MCV 99.1 fL (80-95); MPV 9.5 fL (8.0-11.0); Monocytes % 1.5; Neutrophils % 64.1; Nucleated RBC 0 %; WBC 3.28 10^3/uL (4.4-10.8)
[2020-07-12 08:44] LABS: Platelet Count 70 10^3/uL (130-400)
[2020-07-12 08:45] LABS: Anisocytosis 2+; Diff Comment RBC Morph Reviewed
[2020-07-12 08:46] LABS: Macrocytosis 2+; Microcytosis 1+; Polychromasia Present
[2020-07-12] MEDS: Normal Saline Flush 10 ML SYR IVP (08:59)
[2020-07-16] MEDS: Normal Saline Flush 10 ML SYR IVP (07:55)
[2020-07-16 08:02] LABS: HCT 33.3 % (40.0-50.0); HGB 11.2 g/dL (13.5-17.5); MCH 33.7 pg (27.0-33.0); MCHC 33.6 % (32.0-36.0); MCV 100.3 fL (80-95); MPV 8.7 fL (8.0-11.0); Nucleated RBC 0 %; Platelet Count 108 10^3/uL (130-400); RBC 3.32 10^6/uL (4.36-5.78)
[2020-07-16 08:35] LABS: WBC 1.38 10^3/uL (4.4-10.8)
[2020-07-16 08:36] LABS: Absolute Basophil Count 0.01 10^3/uL (0.0-0.2); Absolute Lymphocyte Count 0.87 10^3/uL (1.2-3.4); Atypical Lymphocytes % 3; Bands % 3
[2020-07-16 08:41] LABS: Anisocytosis 2+; Diff Comment Manual Differential
[2020-07-16 08:42] LABS: Macrocytosis 1+; Polychromasia Present
[2020-07-16] MEDS: Heparin 500 UNITS/5 ML SYRINGE IV (09:25)
[2020-07-19] MEDS: Normal Saline Flush 10 ML SYR IVP (07:50)
[2020-07-19] MEDS: Heparin 500 UNITS/5 ML SYRINGE IV (07:50)
[2020-07-19 08:09] LABS: HCT 33.2 % (40.0-50.0); MCH 33.5 pg (27.0-33.0); MCHC 33.1 % (32.0-36.0); MCV 101.2 fL (80-95); MPV 8.7 fL (8.0-11.0); Nucleated RBC 0 %; Platelet Count 115 10^3/uL (130-400); RBC 3.28 10^6/uL (4.36-5.78); RDW-SD 77.9 fL
[2020-07-19 08:29] LABS: Bands % 6
[2020-07-19 08:30] LABS: Absolute Monocyte Count 0.08 10^3/uL (0.1-0.8); Anisocytosis 2+; Diff Comment Diff Reviewed; Microcytosis 1+
[2020-07-19 08:34] LABS: Absolute Neutrophil Count 0.28 10^3/uL (1.2-6.7)
[2020-07-19 08:35] LABS: WBC 1.25 10^3/uL (4.4-10.8)
[2020-07-23] MEDS: Normal Saline Flush 10 ML SYR IVP (08:03)
[2020-07-23 08:16] LABS: Abs Immature Grans 0.01 10^3/uL (0.0-0.06); Absolute Basophil Count 0.01 10^3/uL (0.0-0.2); Absolute Lymphocyte Count 1.28 10^3/uL (1.2-3.4); Absolute Monocyte Count 0.08 10^3/uL (0.1-0.8); Absolute Neutrophil Count 0.51 10^3/uL (1.2-6.7); Basophils % 0.5; HCT 33.7 % (40.0-50.0); HGB 11.3 g/dL (13.5-17.5); Immature Grans % 0.5; Lymphocytes % 67.7; MCH 33.9 pg (27.0-33.0); MCHC 33.5 % (32.0-36.0); MCV 101.2 fL (80-95); Monocytes % 4.2; Neutrophils % 27.1; Nucleated RBC 0 %; Platelet Count 134 10^3/uL (130-400); RBC 3.33 10^6/uL (4.36-5.78); RDW-SD 72.1 fL
[2020-07-23 08:32] LABS: Diff Comment Diff Reviewed; RBC Morphology Normal; WBC 1.89 10^3/uL (4.4-10.8)
[2020-07-23] MEDS: Heparin 500 UNITS/5 ML SYRINGE IV (08:40)
[2020-07-26] MEDS: Normal Saline Flush 10 ML SYR IVP (07:47)
[2020-07-26 07:57] LABS: Absolute Basophil Count 0.01 10^3/uL (0.0-0.2); Absolute Lymphocyte Count 1.17 10^3/uL (1.2-3.4); Absolute Monocyte Count 0.11 10^3/uL (0.1-0.8); Basophils % 0.6; HCT 34.6 % (40.0-50.0); HGB 11.7 g/dL (13.5-17.5); Lymphocytes % 66.9; MCH 34.4 pg (27.0-33.0); MCHC 33.8 % (32.0-36.0); MCV 101.8 fL (80-95); MPV 8.6 fL (8.0-11.0); Monocytes % 6.3; Neutrophils % 26.2; Nucleated RBC 0 %; Platelet Count 116 10^3/uL (130-400); RDW 19.3 % (11.8-14.1)
[2020-07-26] MEDS: Heparin 500 UNITS/5 ML SYRINGE IV (08:30)
[2020-07-26 08:42] LABS: Absolute Neutrophil Count 0.46 10^3/uL (1.2-6.7); Anisocytosis 1+; Diff Comment Agrees w/ Instrument; Macrocytosis 1+; WBC 1.75 10^3/uL (4.4-10.8)
[2020-07-30] MEDS: Normal Saline Flush 10 ML SYR IVP (08:04)
[2020-07-30 08:22] LABS: Absolute Basophil Count 0.01 10^3/uL (0.0-0.2); Absolute Monocyte Count 0.24 10^3/uL (0.1-0.8); Absolute Neutrophil Count 0.52 10^3/uL (1.2-6.7); Basophils % 0.5; HCT 35.4 % (40.0-50.0); HGB 11.9 g/dL (13.5-17.5); Lymphocytes % 64.5; MCH 33.9 pg (27.0-33.0); MCHC 33.6 % (32.0-36.0); MCV 100.9 fL (80-95); MPV 9.6 fL (8.0-11.0); Monocytes % 11.1; Neutrophils % 23.9; Nucleated RBC 0 %; RBC 3.51 10^6/uL (4.36-5.78); RDW 18.2 % (11.8-14.1); RDW-SD 65.2 fL; WBC 2.17 10^3/uL (4.4-10.8)
[2020-07-30 08:34] LABS: Platelet Count 97 10^3/uL (130-400)
[2020-07-30 08:35] LABS: Anisocytosis 1+; Diff Comment Diff Reviewed; Macrocytosis 2+; Polychromasia Present
[2020-07-30] MEDS: Heparin 500 UNITS/5 ML SYRINGE IV (09:22)
[2020-08-02] MEDS: Normal Saline Flush 10 ML SYR IVP (13:17)
[2020-08-02] MEDS: Heparin 500 UNITS/5 ML SYRINGE IV (13:18)
[2020-08-02 13:26] LABS: Absolute Basophil Count 0.01 10^3/uL (0.0-0.2); Absolute Lymphocyte Count 1.55 10^3/uL (1.2-3.4); Absolute Monocyte Count 0.47 10^3/uL (0.1-0.8); Absolute Neutrophil Count 1.11 10^3/uL (1.2-6.7); Basophils % 0.3; HCT 35.6 % (40.0-50.0); HGB 12.1 g/dL (13.5-17.5); Lymphocytes % 49.4; MCH 34.5 pg (27.0-33.0); MCV 101.4 fL (80-95); MPV 8.8 fL (8.0-11.0); Neutrophils % 35.3; Nucleated RBC 0 %; RBC 3.51 10^6/uL (4.36-5.78); RDW 17.7 % (11.8-14.1); RDW-SD 65.4 fL; WBC 3.14 10^3/uL (4.4-10.8)
[2020-08-02 13:50] LABS: Anisocytosis 2+; Diff Comment Diff Reviewed; Platelet Count 72 10^3/uL (130-400); Polychromasia Present
[2020-08-06] MEDS: Normal Saline Flush 10 ML SYR IVP (08:14)
[2020-08-06 08:32] LABS: Absolute Basophil Count 0.01 10^3/uL (0.0-0.2); Absolute Lymphocyte Count 1.74 10^3/uL (1.2-3.4); Absolute Monocyte Count 0.53 10^3/uL (0.1-0.8); Absolute Neutrophil Count 0.84 10^3/uL (1.2-6.7); Basophils % 0.3; HCT 36.6 % (40.0-50.0); HGB 12.5 g/dL (13.5-17.5); Lymphocytes % 55.8; MCHC 34.2 % (32.0-36.0); MCV 102.5 fL (80-95); MPV 9.9 fL (8.0-11.0); Neutrophils % 26.9; Nucleated RBC 0 %; RBC 3.57 10^6/uL (4.36-5.78); RDW 17.2 % (11.8-14.1); RDW-SD 64.6 fL; WBC 3.12 10^3/uL (4.4-10.8)
[2020-08-06 08:46] LABS: Platelet Count 52 10^3/uL (130-400)
[2020-08-06 08:47] LABS: Anisocytosis 2+; Diff Comment Diff Reviewed; Macrocytosis 1+
== END 2020-08-10 23:59 | disposition home or self-care (01) ==
LOC: INF 03:17
PROVIDERS: PCP Internal Medicine; Visit Provider Internal Medicine Hematology
DX: C92.00 Acute myeloblastic leukemia, not having achieved remission (principal)
CPT/HCPCS: 36591; 86900; 86901; 85025

== ENCOUNTER 2020-08-06 11:06 | Outpatient (REF) | payer MEDICARE, SELFPAY ==
[2020-08-06 11:26] LABS: ALT 21 U/L (16-63); AST 16 U/L (15-37); Albumin 3.7 g/dL (3.4-5.0); Alkaline Phosphatase 88 U/L (46-116); Anion Gap 7.5 mmol/L (3-11); BUN 13 mg/dL (7-18); Bilirubin, Total 0.4 mg/dL (0.2-1.0); CO2 26.5 mmol/L (21.0-32.0); Calcium 8.6 mg/dL (8.5-10.1); Chloride 107 mmol/L (98-107); Glucose 110 mg/dL (74-106); Potassium 4.1 mmol/L (3.5-5.1); Sodium 141 mmol/L (136-145); Total Protein 6.8 g/dL (6.4-8.2)
== END 2020-08-06 11:07 | disposition home or self-care (01) ==
LOC: LBN 11:06
PROVIDERS: PCP Internal Medicine; Visit Provider Internal Medicine Hematology & Oncology
DX: C92.00 Acute myeloblastic leukemia, not having achieved remission (principal)
CPT/HCPCS: 80053

== ENCOUNTER 2020-09-06 02:08 | Outpatient (RCR) | payer MEDICARE, SELFPAY ==
[2020-08-11 00:08] VITALS: BP 106/68; PULSE 78; RESP 18; TEMP 36.6
[2020-08-13] MEDS: Normal Saline Flush 10 ML SYR IVP (08:07)
[2020-08-13 08:17] LABS: Absolute Eosinophil Count 0.01 10^3/uL (0.0-0.7); Absolute Lymphocyte Count 1.64 10^3/uL (1.2-3.4); Absolute Monocyte Count 0.38 10^3/uL (0.1-0.8); Absolute Neutrophil Count 1.08 10^3/uL (1.2-6.7); Eosinophils % 0.3; HCT 33.9 % (40.0-50.0); HGB 11.8 g/dL (13.5-17.5); Lymphocytes % 52.7; MCHC 34.8 % (32.0-36.0); MCV 100.6 fL (80-95); MPV 10.1 fL (8.0-11.0); Monocytes % 12.2; Neutrophils % 34.8; Nucleated RBC 0 %; Platelet Count 41 10^3/uL (130-400); RBC 3.37 10^6/uL (4.36-5.78); RDW 15.9 % (11.8-14.1); RDW-SD 59.5 fL; WBC 3.11 10^3/uL (4.4-10.8)
[2020-08-20 08:15] LABS: HCT 28.5 % (40.0-50.0); HGB 10.1 g/dL (13.5-17.5); MCH 35.9 pg (27.0-33.0); MCHC 35.4 % (32.0-36.0); MCV 101.4 fL (80-95); Nucleated RBC 0 %; RBC 2.81 10^6/uL (4.36-5.78); RDW 15.1 % (11.8-14.1); RDW-SD 54.6 fL; WBC 2.96 10^3/uL (4.4-10.8)
[2020-08-20 08:23] LABS: Platelet Count 9 10^3/uL (130-400)
[2020-08-20 08:34] LABS: Absolute Lymphocyte Count 1.51 10^3/uL (1.2-3.4); Absolute Monocyte Count 0.06 10^3/uL (0.1-0.8); Absolute Neutrophil Count 1.39 10^3/uL (1.2-6.7); Atypical Lymphocytes % 15; Bands % 2
[2020-08-20 08:35] LABS: Diff Comment Manual Differential; RBC Morphology Normal
[2020-08-20] MEDS: Normal Saline Flush 10 ML SYR IVP (08:56)
[2020-08-20 12:47] VITALS: BP 110/72; PULSE 75; RESP 16; TEMP 36.5; O2SAT 98
[2020-08-20 13:05] VITALS: BP 108/69; PULSE 74; RESP 16; TEMP 36.5; O2SAT 97
[2020-08-23] MEDS: Normal Saline Flush 10 ML SYR IVP (08:20)
[2020-08-23 08:33] LABS: HCT 27.3 % (40.0-50.0); HGB 9.7 g/dL (13.5-17.5); MCH 36.2 pg (27.0-33.0); MCHC 35.5 % (32.0-36.0); MCV 101.9 fL (80-95); MPV 11.6 fL (8.0-11.0); Nucleated RBC 0 %; RBC 2.68 10^6/uL (4.36-5.78); RDW-SD 54.3 fL
[2020-08-23 08:40] LABS: Platelet Count 11 10^3/uL (130-400)
[2020-08-23 08:51] LABS: Absolute Eosinophil Count 0.01 10^3/uL (0.0-0.7); Absolute Lymphocyte Count 1.17 10^3/uL (1.2-3.4); Absolute Monocyte Count 0.01 10^3/uL (0.1-0.8); Anisocytosis 1+; Atypical Lymphocytes % 23; Diff Comment Manual Differential
[2020-08-23 08:52] LABS: Microcytosis 1+; Polychromasia Present
[2020-08-23 12:43] VITALS: BP 102/64; PULSE 74; RESP 16; TEMP 36.5; O2SAT 97
[2020-08-23 13:00] VITALS: BP 111/63; PULSE 75; RESP 16; TEMP 36.3; O2SAT 100
[2020-08-27 08:30] LABS: HCT 25.5 % (40.0-50.0); MCHC 35.3 % (32.0-36.0); MPV 10.8 fL (8.0-11.0); RDW-SD 53.1 fL
[2020-08-27] MEDS: Normal Saline Flush 10 ML SYR IVP ×2 (08:46→13:18)
[2020-08-27 08:55] LABS: WBC 1.08 10^3/uL (4.4-10.8)
[2020-08-27 09:00] LABS: Bands % 1
[2020-08-27 09:01] LABS: Absolute Lymphocyte Count 1.06 10^3/uL (1.2-3.4); Atypical Lymphocytes % 22; Diff Comment Manual Differential; Nucleated RBC 1 %
[2020-08-27 09:02] LABS: Basophilic Stippling Present; Macrocytosis 1+; Polychromasia Present
[2020-08-27 09:04] LABS: Platelet Count 19 10^3/uL (130-400)
[2020-08-27 11:39] LABS: Absolute Neutrophil Count 0.02 10^3/uL (1.2-6.7)
[2020-08-27 13:15] VITALS: BP 132/84; PULSE 103; RESP 20; TEMP 36.5; O2SAT 96
[2020-08-27 13:45] VITALS: BP 113/72; PULSE 103; RESP 20; TEMP 36.6; O2SAT 97
[2020-08-30 08:13] LABS: HCT 23.7 % (40.0-50.0); HGB 8.4 g/dL (13.5-17.5); MCH 35.7 pg (27.0-33.0); MCHC 35.4 % (32.0-36.0); MCV 100.9 fL (80-95); MPV 9.9 fL (8.0-11.0); RBC 2.35 10^6/uL (4.36-5.78); RDW 15.2 % (11.8-14.1)
[2020-08-30 08:18] LABS: WBC 1.14 10^3/uL (4.4-10.8)
[2020-08-30 08:36] LABS: Platelet Count 35 10^3/uL (130-400)
[2020-08-30 09:32] LABS: Absolute Lymphocyte Count 1.12 10^3/uL (1.2-3.4)
[2020-08-30 09:38] LABS: Absolute Neutrophil Count 0.02 10^3/uL (1.2-6.7); Diff Comment Manual Differential; RBC Morphology Normal
[2020-08-30] MEDS: Normal Saline Flush 10 ML SYR IVP (11:33)
[2020-09-03 08:35] LABS: HGB 8.4 g/dL (13.5-17.5); MCH 36.4 pg (27.0-33.0); MCHC 36.5 % (32.0-36.0); MCV 99.6 fL (80-95); MPV 10.6 fL (8.0-11.0); RBC 2.31 10^6/uL (4.36-5.78); RDW-SD 53.2 fL
[2020-09-03 09:04] LABS: WBC 1.22 10^3/uL (4.4-10.8)
[2020-09-03 09:05] LABS: Absolute Eosinophil Count 0.01 10^3/uL (0.0-0.7); Absolute Lymphocyte Count 1.09 10^3/uL (1.2-3.4); Absolute Neutrophil Count 0.12 10^3/uL (1.2-6.7); Nucleated RBC 1 %
[2020-09-03 09:06] LABS: Diff Comment Manual Differential; Platelet Count 35 10^3/uL (130-400); Polychromasia Present
[2020-09-03] MEDS: Normal Saline Flush 10 ML SYR IVP (09:13)
[2020-09-06] MEDS: Normal Saline Flush 10 ML SYR IVP (08:04)
[2020-09-06 08:11] LABS: HGB 8.3 g/dL (13.5-17.5); MCH 35.9 pg (27.0-33.0); MCHC 36.1 % (32.0-36.0); MCV 99.6 fL (80-95); Nucleated RBC 0 %; RBC 2.31 10^6/uL (4.36-5.78); RDW 15.4 % (11.8-14.1); RDW-SD 55.1 fL
[2020-09-06 09:16] LABS: Platelet Count 32 10^3/uL (130-400)
[2020-09-06 09:17] LABS: Absolute Lymphocyte Count 1.34 10^3/uL (1.2-3.4); Atypical Lymphocytes % 1
[2020-09-06 09:18] LABS: Absolute Basophil Count 0.02 10^3/uL (0.0-0.2); Absolute Monocyte Count 0.02 10^3/uL (0.1-0.8); Basophilic Stippling Present; Diff Comment Manual Differential; Metamyelocytes % 2
[2020-09-06 09:19] LABS: Polychromasia Present
[2020-09-06 09:23] LABS: Absolute Neutrophil Count 0.29 10^3/uL (1.2-6.7); WBC 1.69 10^3/uL (4.4-10.8)
== END 2020-09-10 23:59 | disposition home or self-care (01) ==
LOC: INF 02:08
PROVIDERS: PCP Internal Medicine; Visit Provider Internal Medicine Hematology & Oncology
DX: C92.00 Acute myeloblastic leukemia, not having achieved remission (principal); Z45.2 Encounter for adjustment and management of vascular access device
CPT/HCPCS: 36430; 36591; 85027; 86850; 86900; 86901; 85007; 85025; P9035

== ENCOUNTER 2020-10-08 02:47 | Outpatient (RCR) | payer MEDICARE, SELFPAY ==
[2020-09-11 00:16] VITALS: BP 113/72; PULSE 103; RESP 20; TEMP 36.6
[2020-09-11] MEDS: Normal Saline Flush 10 ML SYR IVP (08:21)
[2020-09-11 08:42] LABS: Abs Immature Grans 0.02 10^3/uL (0.0-0.06); Absolute Basophil Count 0.01 10^3/uL (0.0-0.2); Absolute Lymphocyte Count 1.48 10^3/uL (1.2-3.4); Absolute Monocyte Count 0.11 10^3/uL (0.1-0.8); Basophils % 0.5; HCT 22.6 % (40.0-50.0); HGB 8.2 g/dL (13.5-17.5); Lymphocytes % 77.5; MCH 35.8 pg (27.0-33.0); MCHC 36.3 % (32.0-36.0); MCV 98.7 fL (80-95); MPV 10.8 fL (8.0-11.0); Monocytes % 5.8; Neutrophils % 15.2; Nucleated RBC 1 %; RBC 2.29 10^6/uL (4.36-5.78); RDW 15.5 % (11.8-14.1); RDW-SD 54.1 fL
[2020-09-11 09:18] LABS: Platelet Count 26 10^3/uL (130-400); WBC 1.91 10^3/uL (4.4-10.8)
[2020-09-11 09:19] LABS: Absolute Neutrophil Count 0.29 10^3/uL (1.2-6.7); Anisocytosis 1+; Diff Comment Diff Reviewed; Polychromasia Present
[2020-09-13] MEDS: Normal Saline Flush 10 ML SYR IVP (08:24)
[2020-09-13 08:36] LABS: HGB 7.6 g/dL (13.5-17.5); MCH 35.8 pg (27.0-33.0); MCHC 36.4 % (32.0-36.0); MCV 98.6 fL (80-95); MPV 11.6 fL (8.0-11.0); Nucleated RBC 0 %; RBC 2.12 10^6/uL (4.36-5.78); RDW 15.9 % (11.8-14.1); RDW-SD 54.2 fL; WBC 2.04 10^3/uL (4.4-10.8)
[2020-09-13 08:49] LABS: HCT 20.9 % (40.0-50.0)
[2020-09-13 08:50] LABS: Platelet Count 24 10^3/uL (130-400)
[2020-09-13 09:02] LABS: Absolute Lymphocyte Count 1.73 10^3/uL (1.2-3.4); Atypical Lymphocytes % 1
[2020-09-13 09:03] LABS: Absolute Monocyte Count 0.04 10^3/uL (0.1-0.8); Absolute Neutrophil Count 0.27 10^3/uL (1.2-6.7); Anisocytosis 2+; Diff Comment Manual Differential
[2020-09-13 10:28] VITALS: BP 122/74; PULSE 72; RESP 16; TEMP 36.2; O2SAT 98
[2020-09-13 10:43] VITALS: BP 100/64; PULSE 69; RESP 14; TEMP 36.5; O2SAT 97
[2020-09-13 11:13] VITALS: BP 109/69; PULSE 68; RESP 14; TEMP 36.5; O2SAT 99
[2020-09-13 12:25] VITALS: BP 114/68; PULSE 64; RESP 16; TEMP 36.6; O2SAT 97
[2020-09-17 09:22] LABS: Abs Immature Grans 0.02 10^3/uL (0.0-0.06); Absolute Lymphocyte Count 1.92 10^3/uL (1.2-3.4); Absolute Monocyte Count 0.47 10^3/uL (0.1-0.8); Absolute Neutrophil Count 0.59 10^3/uL (1.2-6.7); HCT 23.4 % (40.0-50.0); HGB 8.6 g/dL (13.5-17.5); Immature Grans % 0.7; MCH 35.8 pg (27.0-33.0); MCHC 36.8 % (32.0-36.0); MCV 97.5 fL (80-95); MPV 10.3 fL (8.0-11.0); Monocytes % 15.7; Neutrophils % 19.6; Nucleated RBC 1 %; RDW 16.9 % (11.8-14.1); RDW-SD 56.5 fL
[2020-09-17] MEDS: Normal Saline Flush 10 ML SYR IVP (09:31)
[2020-09-17 09:46] LABS: Diff Comment Agrees w/ Instrument; Hypochromasia 2+; Polychromasia Present
[2020-09-17 09:49] LABS: Platelet Count 25 10^3/uL (130-400)
[2020-09-24] MEDS: Normal Saline Flush 10 ML SYR IVP (08:19)
[2020-09-24 08:47] LABS: HCT 22.5 % (40.0-50.0); MCH 35.4 pg (27.0-33.0); MCHC 35.6 % (32.0-36.0); MCV 99.6 fL (80-95); MPV 11.1 fL (8.0-11.0); Nucleated RBC 1 %; Platelet Count 31 10^3/uL (130-400); RBC 2.26 10^6/uL (4.36-5.78); RDW 18.9 % (11.8-14.1); RDW-SD 63.3 fL; WBC 2.59 10^3/uL (4.4-10.8)
[2020-09-24 09:36] LABS: Absolute Lymphocyte Count 1.74 10^3/uL (1.2-3.4); Absolute Monocyte Count 0.28 10^3/uL (0.1-0.8); Bands % 2
[2020-09-24 09:37] LABS: Anisocytosis 1+; Diff Comment Manual Differential; Microcytosis 1+; Polychromasia Present
[2020-09-25 11:07] VITALS: BP 114/68; PULSE 64; RESP 16; TEMP 36.6; O2SAT 97
[2020-09-25] MEDS: Normal Saline Flush 10 ML SYR IVP (11:14)
[2020-09-25 11:22] VITALS: BP 105/70; PULSE 64; RESP 16; TEMP 36.6; O2SAT 97
[2020-09-25 11:50] VITALS: BP 104/69; PULSE 61; RESP 16; TEMP 36.6; O2SAT 97
[2020-09-25 12:45] VITALS: BP 117/84; PULSE 67; RESP 16; TEMP 36.6; O2SAT 97
[2020-09-27] MEDS: Normal Saline Flush 10 ML SYR IVP (12:04)
[2020-09-27 12:09] LABS: Absolute Monocyte Count 0.58 10^3/uL (0.1-0.8); Absolute Neutrophil Count 0.75 10^3/uL (1.2-6.7); HCT 24.6 % (40.0-50.0); HGB 8.8 g/dL (13.5-17.5); MCH 35.5 pg (27.0-33.0); MCHC 35.8 % (32.0-36.0); MCV 99.2 fL (80-95); MPV 10.8 fL (8.0-11.0); Monocytes % 20.5; Neutrophils % 26.5; Nucleated RBC 1 %; RBC 2.48 10^6/uL (4.36-5.78); RDW 20.1 % (11.8-14.1); RDW-SD 67.7 fL; WBC 2.83 10^3/uL (4.4-10.8)
[2020-09-27 12:19] LABS: Anisocytosis 2+; Diff Comment Agrees w/ Instrument; Platelet Count 37 10^3/uL (130-400); Polychromasia Present
[2020-10-01] MEDS: Normal Saline Flush 10 ML SYR IVP ×2 (07:57→08:19)
[2020-10-01 08:11] LABS: HCT 24.3 % (40.0-50.0); HGB 8.6 g/dL (13.5-17.5); Lymphocytes % 51.2; MCH 35.7 pg (27.0-33.0); MCHC 35.4 % (32.0-36.0); MCV 100.8 fL (80-95); MPV 10.9 fL (8.0-11.0); Neutrophils % 29.9; Platelet Count 40 10^3/uL (130-400); RBC 2.41 10^6/uL (4.36-5.78); RDW 20.8 % (11.8-14.1); RDW-SD 72.8 fL; WBC 2.95 10^3/uL (4.4-10.8)
[2020-10-01 08:12] LABS: Absolute Eosinophil Count 0.01 10^3/uL (0.0-0.7); Absolute Lymphocyte Count 1.51 10^3/uL (1.2-3.4); Absolute Monocyte Count 0.55 10^3/uL (0.1-0.8); Absolute Neutrophil Count 0.88 10^3/uL (1.2-6.7); Eosinophils % 0.3; Monocytes % 18.6; Nucleated RBC 1 %
[2020-10-01 08:22] LABS: Anisocytosis 2+; Diff Comment Diff Reviewed; Macrocytosis 1+; Microcytosis 1+; Poikilocytes 1+
[2020-10-08] MEDS: Normal Saline Flush 10 ML SYR IVP (08:08)
[2020-10-08 08:18] LABS: Abs Immature Grans 0.01 10^3/uL (0.0-0.06); Absolute Basophil Count 0.01 10^3/uL (0.0-0.2); Absolute Lymphocyte Count 1.36 10^3/uL (1.2-3.4); Absolute Monocyte Count 0.46 10^3/uL (0.1-0.8); Absolute Neutrophil Count 0.94 10^3/uL (1.2-6.7); Basophils % 0.4; HCT 25.5 % (40.0-50.0); HGB 8.7 g/dL (13.5-17.5); Immature Grans % 0.4; Lymphocytes % 48.9; MCHC 34.1 % (32.0-36.0); MCV 105.4 fL (80-95); MPV 10.5 fL (8.0-11.0); Monocytes % 16.5; Neutrophils % 33.8; Nucleated RBC 1 %; Platelet Count 48 10^3/uL (130-400); RBC 2.42 10^6/uL (4.36-5.78); WBC 2.78 10^3/uL (4.4-10.8)
[2020-10-08 08:39] LABS: Anisocytosis 3+; Diff Comment Diff Reviewed; Macrocytosis 2+; Polychromasia Present
[2020-10-16 10:34] LABS: Absolute Neutrophil Count 0.57 10^3/uL (1.2-6.7)
== END 2020-10-10 23:59 | disposition home or self-care (01) ==
LOC: INF 02:47
PROVIDERS: Internal Medicine Hematology; PCP Internal Medicine; Visit Provider Internal Medicine Hematology & Oncology
DX: C92.00 Acute myeloblastic leukemia, not having achieved remission (principal)
CPT/HCPCS: 36430; 36591; 86850; 86900; 86901; 86920; 85025; P9016

== ENCOUNTER 2020-11-05 01:33 | Outpatient (RCR) | payer MEDICARE, SELFPAY ==
[2020-10-11 00:22] VITALS: BP 117/84; PULSE 67; RESP 16; TEMP 36.6
[2020-10-22] MEDS: Normal Saline Flush 10 ML SYR IVP (10:13)
[2020-10-22 10:39] LABS: Abs Immature Grans 0.01 10^3/uL (0.0-0.06); Absolute Basophil Count 0.01 10^3/uL (0.0-0.2); Absolute Eosinophil Count 0.02 10^3/uL (0.0-0.7); Absolute Lymphocyte Count 1.54 10^3/uL (1.2-3.4); Absolute Monocyte Count 0.43 10^3/uL (0.1-0.8); Absolute Neutrophil Count 2.26 10^3/uL (1.2-6.7); Basophils % 0.2; Eosinophils % 0.5; HCT 30.1 % (40.0-50.0); HGB 10.3 g/dL (13.5-17.5); Immature Grans % 0.2; Lymphocytes % 36.1; MCH 36.9 pg (27.0-33.0); MCHC 34.2 % (32.0-36.0); MCV 107.9 fL (80-95); MPV 10.1 fL (8.0-11.0); Monocytes % 10.1; Neutrophils % 52.9; Nucleated RBC 0 %; RBC 2.79 10^6/uL (4.36-5.78); RDW 22.3 % (11.8-14.1); RDW-SD 85.8 fL; WBC 4.27 10^3/uL (4.4-10.8)
[2020-10-22 11:07] LABS: Anisocytosis 3+; Diff Comment Agrees w/ Instrument; Macrocytosis 2+; Microcytosis 1+; Platelet Count 69 10^3/uL (130-400); Polychromasia Present
[2020-10-22 11:08] LABS: Poikilocytes 1+
[2020-10-22 11:17] LABS: ALT 25 U/L (16-63); AST 14 U/L (15-37); Albumin 3.9 g/dL (3.4-5.0); Alkaline Phosphatase 93 U/L (46-116); Anion Gap 8.3 mmol/L (3-11); BUN 11 mg/dL (7-18); Bilirubin, Total 0.5 mg/dL (0.2-1.0); CO2 26.7 mmol/L (21.0-32.0); CREATININE 0.9 mg/dL (0.70-1.30); Calcium 8.6 mg/dL (8.5-10.1); Chloride 107 mmol/L (98-107); Glucose 126 mg/dL (74-106); Potassium 4.1 mmol/L (3.5-5.1); Sodium 142 mmol/L (136-145)
[2020-10-29 12:58] LABS: Abs Immature Grans 0.02 10^3/uL (0.0-0.06); Absolute Basophil Count 0.01 10^3/uL (0.0-0.2); Absolute Eosinophil Count 0.02 10^3/uL (0.0-0.7); Absolute Lymphocyte Count 1.41 10^3/uL (1.2-3.4); Absolute Monocyte Count 0.37 10^3/uL (0.1-0.8); Basophils % 0.3; Eosinophils % 0.5; HCT 29.1 % (40.0-50.0); HGB 10.2 g/dL (13.5-17.5); Immature Grans % 0.5; Lymphocytes % 37.8; MCH 37.9 pg (27.0-33.0); MCHC 35.1 % (32.0-36.0); MCV 108.2 fL (80-95); MPV 9.4 fL (8.0-11.0); Monocytes % 9.9; Nucleated RBC 0 %; RBC 2.69 10^6/uL (4.36-5.78); RDW 19.9 % (11.8-14.1); RDW-SD 76.3 fL; WBC 3.73 10^3/uL (4.4-10.8)
[2020-10-29 13:12] LABS: Platelet Count 77 10^3/uL (130-400)
[2020-10-29] MEDS: Normal Saline Flush 10 ML SYR IVP (13:14)
[2020-11-05 08:34] LABS: ALT 27 U/L (16-63); AST 17 U/L (15-37); Albumin 3.8 g/dL (3.4-5.0); Alkaline Phosphatase 102 U/L (46-116); Anion Gap 8.7 mmol/L (3-11); BUN 10 mg/dL (7-18); Bilirubin, Total 0.6 mg/dL (0.2-1.0); CO2 26.3 mmol/L (21.0-32.0); Calcium 8.4 mg/dL (8.5-10.1); Chloride 107 mmol/L (98-107); Glucose 126 mg/dL (74-106); Sodium 142 mmol/L (136-145); Total Protein 6.7 g/dL (6.4-8.2)
[2020-11-05 08:50] LABS: Abs Immature Grans 0.03 10^3/uL (0.0-0.06); Absolute Basophil Count 0.01 10^3/uL (0.0-0.2); Absolute Lymphocyte Count 1.35 10^3/uL (1.2-3.4); Absolute Monocyte Count 0.18 10^3/uL (0.1-0.8); Absolute Neutrophil Count 2.84 10^3/uL (1.2-6.7); Basophils % 0.2; HCT 26.9 % (40.0-50.0); HGB 9.3 g/dL (13.5-17.5); Immature Grans % 0.7; Lymphocytes % 30.6; MCH 39.1 pg (27.0-33.0); MCHC 34.6 % (32.0-36.0); Monocytes % 4.1; Neutrophils % 64.4; Nucleated RBC 0 %; RBC 2.38 10^6/uL (4.36-5.78); RDW 19.6 % (11.8-14.1); RDW-SD 79.9 fL; WBC 4.41 10^3/uL (4.4-10.8)
[2020-11-05] MEDS: Heparin 500 UNITS/5 ML SYRINGE IV (08:54)
[2020-11-05] MEDS: Normal Saline Flush 10 ML SYR IVP (08:54)
[2020-11-05 09:17] LABS: Platelet Count 28 10^3/uL (130-400)
[2020-11-05 09:18] LABS: Anisocytosis 1+; Diff Comment Agrees w/ Instrument; Macrocytosis 2+; Polychromasia Present
== END 2020-11-10 23:59 | disposition home or self-care (01) ==
LOC: INF 01:33
PROVIDERS: PCP Internal Medicine; Visit Provider Internal Medicine Hematology & Oncology
DX: C92.00 Acute myeloblastic leukemia, not having achieved remission (principal); Z45.2 Encounter for adjustment and management of vascular access device
CPT/HCPCS: 36591; 80053; 86900; 86901; 85025

== ENCOUNTER 2020-12-03 01:53 | Outpatient (RCR) | payer MEDICARE, SELFPAY ==
[2020-11-11 00:23] VITALS: BP 117/84; PULSE 67; RESP 16; TEMP 36.6
[2020-11-12 08:15] LABS: HGB 10.2 g/dL (13.5-17.5); MCH 38.9 pg (27.0-33.0); Nucleated RBC 0 %; Platelet Count 59 10^3/uL (130-400); RBC 2.62 10^6/uL (4.36-5.78); RDW 17.5 % (11.8-14.1); RDW-SD 75.2 fL
[2020-11-12] MEDS: Normal Saline Flush 10 ML SYR IVP (08:20)
[2020-11-12 08:21] LABS: WBC 1.85 10^3/uL (4.4-10.8)
[2020-11-12 08:22] LABS: MCV 114.5 fL (80-95)
[2020-11-12] MEDS: Heparin 500 UNITS/5 ML SYRINGE IV (08:25)
[2020-11-12 08:31] LABS: Absolute Lymphocyte Count 0.96 10^3/uL (1.2-3.4); Absolute Monocyte Count 0.07 10^3/uL (0.1-0.8); Absolute Neutrophil Count 0.81 10^3/uL (1.2-6.7); Atypical Lymphocytes % 2; Bands % 1
[2020-11-12 08:32] LABS: Anisocytosis 1+; Diff Comment Manual Differential; Macrocytosis 2+
[2020-11-19 08:30] LABS: Absolute Basophil Count 0.01 10^3/uL (0.0-0.2); Absolute Lymphocyte Count 1.19 10^3/uL (1.2-3.4); Absolute Monocyte Count 0.23 10^3/uL (0.1-0.8); Absolute Neutrophil Count 0.65 10^3/uL (1.2-6.7); Basophils % 0.5; HCT 30.6 % (40.0-50.0); HGB 10.5 g/dL (13.5-17.5); Lymphocytes % 57.2; MCH 38.7 pg (27.0-33.0); MCHC 34.3 % (32.0-36.0); MCV 112.9 fL (80-95); MPV 9.6 fL (8.0-11.0); Monocytes % 11.1; Neutrophils % 31.2; Nucleated RBC 0 %; Platelet Count 112 10^3/uL (130-400); RBC 2.71 10^6/uL (4.36-5.78); RDW 15.2 % (11.8-14.1); RDW-SD 63.8 fL; WBC 2.08 10^3/uL (4.4-10.8)
[2020-11-19] MEDS: Heparin 500 UNITS/5 ML SYRINGE IV (08:35)
[2020-11-19] MEDS: Normal Saline Flush 10 ML SYR IVP (08:35)
[2020-11-26] MEDS: Normal Saline Flush 10 ML SYR IVP (08:20)
[2020-11-26] MEDS: Heparin 500 UNITS/5 ML SYRINGE IV (08:21)
[2020-11-26 08:32] LABS: HCT 32.6 % (40.0-50.0); HGB 11.4 g/dL (13.5-17.5); MCH 38.5 pg (27.0-33.0); MCV 110.1 fL (80-95); MPV 10.3 fL (8.0-11.0); Nucleated RBC 0 %; RBC 2.96 10^6/uL (4.36-5.78); RDW 14.3 % (11.8-14.1); RDW-SD 57.8 fL; WBC 2.77 10^3/uL (4.4-10.8)
[2020-11-26 08:45] LABS: ALT 37 U/L (16-63); AST 17 U/L (15-37); Alkaline Phosphatase 105 U/L (46-116); BUN 11 mg/dL (7-18); Bilirubin, Total 0.6 mg/dL (0.2-1.0); CREATININE 0.9 mg/dL (0.70-1.30); Calcium 8.3 mg/dL (8.5-10.1); Chloride 106 mmol/L (98-107); Glucose 123 mg/dL (74-106); Sodium 141 mmol/L (136-145); Total Protein 6.9 g/dL (6.4-8.2)
[2020-11-26 08:57] LABS: Absolute Lymphocyte Count 1.39 10^3/uL (1.2-3.4); Absolute Monocyte Count 0.58 10^3/uL (0.1-0.8); Atypical Lymphocytes % 2; Diff Comment Manual Differential; Macrocytosis 2+; Platelet Count 77 10^3/uL (130-400)
== END 2020-12-11 23:59 | disposition home or self-care (01) ==
LOC: INF 01:53
PROVIDERS: PCP Internal Medicine; Visit Provider Internal Medicine Hematology & Oncology
DX: C92.00 Acute myeloblastic leukemia, not having achieved remission (principal); Z45.2 Encounter for adjustment and management of vascular access device
CPT/HCPCS: 36591; 80053; 86900; 86901; 85025

== ENCOUNTER 2021-01-04 09:47 | Emergency (ER) | payer MEDICARE, SELFPAY ==
[2021-01-04 10:12] VITALS: BP 126/73; PULSE 90; RESP 16; TEMP 36.9; O2SAT 95
--- NOTE | 2021-01-04 10:15 | DI.RAD_ITS ---
Exam(s) XR PORTABLE CHEST AP EXAM: XR PORTABLE CHEST AP CLINICAL HISTORY: pui, cough, fever TECHNIQUE: 2D digital imaging was performed of the chest. One image was obtained. An AP view was ob tained. COMPARISON: CR CHEST 2 VIEWS PA,LAT from 08/18/2016 CR CHEST 2 VIEWS PA,LAT from 08/18/2016 FINDINGS: MEDIASTINUM: Normal. HEART: Normal. PULMONARY VASCULATURE: Normal. LUNGS: Clear. PLEURAL SPACE: No pleural effusion or pneumothorax. BONE:Within normal limits for the patient's age. OTHER FINDINGS:The tip of the indwelling central venous catheter is in good position at the junction of the superior vena cava and right atrium. IMPRESSION: No acute pulmonary findings. DATA REPOSITORY: RADIATION DOSE DELIVERED:
[2021-01-04 10:43] LABS: Source Nasal/Nares
[2021-01-04 10:44] LABS: HCT 35.9 % (40.0-50.0); HGB 12.5 g/dL (13.5-17.5); MCHC 34.8 % (32.0-36.0); MCV 109.1 fL (80-95); MPV 9.6 fL (8.0-11.0); Nucleated RBC 0 %; Platelet Count 44 10^3/uL (130-400); RBC 3.29 10^6/uL (4.36-5.78); RDW 13.3 % (11.8-14.1); RDW-SD 53.4 fL; WBC 9.95 10^3/uL (4.4-10.8)
[2021-01-04 10:57] LABS: ALT 35 U/L (16-63); AST 17 U/L (15-37); Albumin 4.1 g/dL (3.4-5.0); Alkaline Phosphatase 135 U/L (46-116); Anion Gap 6.1 mmol/L (3-11); BUN 9 mg/dL (7-18); Bilirubin, Total 0.5 mg/dL (0.2-1.0); CO2 29.9 mmol/L (21.0-32.0); Calcium 8.7 mg/dL (8.5-10.1); Chloride 104 mmol/L (98-107); Glucose 123 mg/dL (74-106); Sodium 140 mmol/L (136-145); Total Protein 7.7 g/dL (6.4-8.2)
[2021-01-04 11:01] LABS: Absolute Neutrophil Count 7.96 10^3/uL (1.2-6.7); Bands % 6
[2021-01-04 11:02] LABS: Absolute Lymphocyte Count 1.49 10^3/uL (1.2-3.4); Atypical Lymphocytes % 2; Diff Comment Manual Differential; Macrocytosis 2+
--- NOTE | 2021-01-04 11:04 | ED.GENADUL_ITS ---
Discharge Plan Disposition Patient Disposition: HOME Condition: Stable Discharge Details Clinical Impression: Upper respiratory infection Primary Care Provider: Ashok Montgomery ED Provider: Xavi Finn Home Meds and New Rx's Prescriptions: Continued acetaminophen [Mapap Extra Strength] 500 MG tablet 500 mg PO PRN PRNRF: 0 amitriptyline 25 MG tablet 25 mg PO HS RF: 0 atorvastatin [Lipitor] 10 MG tablet 10 mg PO QPM Qty: 30 RF: 0 acyclovir 400 mg tablet 400 mg PO BID RF: 0 lisinopril 5 mg tablet 5 mg PO QPM RF: 0 metoprolol succinate 25 mg tablet extended release 24 hr PO QHS RF: 0 Venclexta 100 mg tablet 400 mg PO QPM RF: 0 Discharge Instructions Instructions: Upper Respiratory Infection (ED) Additional Instructions: A Covid test was performed today and is pending. We will contact you with results. Please maintain home quarantine until result is available and normal. Rest and drink plenty of fluid. Please contact your primary care physician to arrange follow-up. Return to the ER immediately for any worsening or new concerning symptoms. Referrals: Ashok Montgomery MD [Primary Care Provider] - Medical Decision Making 1130 --70-year-old male on chemotherapy here with sinus drainage, mild cough and low-grade fever. Considered neutropenic fever. Considered pneumonia. Consider Covid. Patient was recently vaccinated and symptoms started a day or 2 later. Consider adverse reaction to vaccine. Labs reviewed and patient is not neutropenic. Checks x-ray reviewed and interpreted by radiology: Negative. Covid test is pending. Patient saturating well with no respiratory distress and requesting discharge. Plan to discharge and I advised him to maintain quarantine until test available. HPI General Mode of arrival: ambulatory . Date/Time Provider Initiated Documentation: 01/04/21 10:22 . Limitations to Documentation: no limitations . Information obtained by: patient . 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 Patient notes symptoms started yesterday. He initially had some congestion and runny nose. He has had some mild cough. No shortness of breath. He has associated low-grade fever. Symptoms mild with no modifiers. Patient did receive Covid booster immunization on Thursday. He denies dysuria or increased urinary frequency. Related Data Home Medications Medication Instructions Recorded Confirmed acetaminophen [Mapap Extra 500 mg PO PRN PRN 08/18/16 01/04/21 Strength] amitriptyline 25 mg PO HS 08/18/16 01/04/21 atorvastatin [Lipitor] 10 mg PO QPM #30 tab 08/20/16 01/04/21 Venclexta 400 mg PO QPM 01/04/21 01/04/21 acyclovir 400 mg PO BID 01/04/21 01/04/21 lisinopril 5 mg PO QPM 01/04/21 01/04/21 metoprolol succinate PO QHS 01/04/21 Previous Rx's Medication Instructions Recorded atorvastatin [Lipitor] 10 mg PO QPM #30 tab 08/20/16 Allergies Allergy/AdvReac Type Severity Reaction Status Date / Time No Known Allergies Allergy Unverified 01/04/21 10:19 General Stated Complaint: RespSymp KRIS: 3 Review of Systems All systems reviewed & are unremarkable except as noted in HPI and below Constitutional Constitutional: Reports fever(s) ENT Ears, Nose, Mouth, and Throat: Reports as per HPI Cardiovascular Cardiovascular: Denies dyspnea Respiratory Respiratory: Reports cough and Denies dyspnea Genitourinary Genitourinary: Denies difficulty urinating, Denies urinary frequency and Denies urinary urgency PFS Social History Smoking risk assessment performed?: No Do you feel safe in your relationship?: Yes Exam Const General: cooperative and no acute distress HENMT Mouth: moist mucous membranes Throat: posterior oropharynx normal Eyes Conjunctivae: normal conjunctivae Sclera: normal sclerae Neck Neck: trachea midline and supple Resp Auscultation: clear to auscultation bilaterally, no rales, no rhonchi and no wheezes Cardio Rate: regular rate and not tachycardic Rhythm: regular rhythm GI Palpation: soft, not firm, no guarding, no masses, not rigid and nontender Skin General skin exam: no rashes or lesions noted Neuro General: patient alert, patient awake, patient oriented x3 and tone normal Extrem General: no edema Psych Appearance: grossly normal Mental Status: mental status grossly normal Speech and Movement: speech and movement normal Course Vital Signs Vital signs: Vital Signs Temperature 36.9 C 01/04/21 10:12 Pulse 90 01/04/21 10:12 Respiratory Rate 16 01/04/21 10:12 Blood Pressure 126/73 01/04/21 10:12 Pulse Oximetry 95 01/04/21 10:12 Temperature 36.9 C 01/04/21 10:12 Temperature Source Skin 01/04/21 10:12 Pulse 90 01/04/21 10:12 Respiratory Rate 16 01/04/21 10:12 Respiratory Effort Non-Labored 01/04/21 10:36 Respiratory Depth Normal 01/04/21 10:35 Blood Pressure 126/73 01/04/21 10:12 Blood Pressure Position Sitting 01/04/21 10:12 Pulse Oximetry 95 01/04/21 10:12 Oxygen Delivery Method Room Air 01/04/21 10:12 Oxygen Flow Rate 0 01/04/21 10:12 Pain Level 0 01/04/21 10:12 Comment 01/04/21 10:12 Lab/Test Results Lab/Test Results: Laboratory Tests Range/Units 01/04/21 01/04/21 10:30 10:30 WBC (4.4-10.8) 10^3/uL 9.95 RBC (4.36-5.78) 10^6/uL 3.29 L Hgb (13.5-17.5) g/dL 12.5 L Hct (40.0-50.0) % 35.9 L MCV (80-95) fL 109.1 H MCH (27.0-33.0) pg 38.0 H MCHC (32.0-36.0) % 34.8 RDW (11.8-14.1) % 13.3 Plt Count (130-400) 10^3/uL 44 L MPV (8.0-11.0) fL 9.6 Immature Gran % 0.0 Neutrophils % 74.0 Band Neutrophils % 6 Lymphocytes % 13.0 Atypical Lymphs % 2 Monocytes % 5.0 Eosinophils % 0.0 Basophils % 0.0 Nucleated RBC % % 0 Absolute Neutrophils (1.2-6.7) 10^3/uL 7.96 H Absolute Lymphocytes (1.2-3.4) 10^3/uL 1.49 Absolute Monocytes (0.1-0.8) 10^3/uL 0.50 Absolute Eosinophils (0.0-0.7) 10^3/uL 0.00 Absolute Basophils (0.0-0.2) 10^3/uL 0.00 RBC Morphology See Below Macrocytosis 2+ COVID-19 Source Nasal/Nares
[2021-01-04 11:36] LABS: COVID-19 PCR Negative (Negative)
== END 2021-01-04 11:30 | disposition home or self-care (01) ==
PROVIDERS: Emergency Provider Student in an Organized Health Care Education/Training Program; PCP Internal Medicine
DX: J06.9 Acute upper respiratory infection, unspecified (principal); C92.00 Acute myeloblastic leukemia, not having achieved remission
CPT/HCPCS: 36415; 80053; 87635; 99283; 71045; 85025

== ENCOUNTER 2021-01-10 03:37 | Outpatient (RCR) | payer MEDICARE, SELFPAY ==
[2020-12-12 00:10] VITALS: BP 117/84; PULSE 67; RESP 16; TEMP 36.6
[2020-12-20] MEDS: Normal Saline Flush 10 ML SYR IVP (09:15)
[2020-12-20] MEDS: Heparin 500 UNITS/5 ML SYRINGE IV (09:15)
[2020-12-20 09:27] LABS: Absolute Basophil Count 0.02 10^3/uL (0.0-0.2); Absolute Eosinophil Count 0.01 10^3/uL (0.0-0.7); Absolute Lymphocyte Count 1.84 10^3/uL (1.2-3.4); Absolute Monocyte Count 0.46 10^3/uL (0.1-0.8); Absolute Neutrophil Count 1.72 10^3/uL (1.2-6.7); Basophils % 0.5; Eosinophils % 0.2; HCT 34.8 % (40.0-50.0); HGB 12.2 g/dL (13.5-17.5); Lymphocytes % 45.4; MCH 38.7 pg (27.0-33.0); MCHC 35.1 % (32.0-36.0); MCV 110.5 fL (80-95); MPV 9.7 fL (8.0-11.0); Monocytes % 11.4; Neutrophils % 42.5; Nucleated RBC 0 %; Platelet Count 77 10^3/uL (130-400); RBC 3.15 10^6/uL (4.36-5.78); RDW 13.2 % (11.8-14.1); WBC 4.05 10^3/uL (4.4-10.8)
[2020-12-20 09:37] LABS: ALT 34 U/L (16-63); AST 18 U/L (15-37); Albumin 3.9 g/dL (3.4-5.0); Alkaline Phosphatase 108 U/L (46-116); Anion Gap 7.9 mmol/L (3-11); BUN 11 mg/dL (7-18); Bilirubin, Total 0.4 mg/dL (0.2-1.0); CO2 28.1 mmol/L (21.0-32.0); CREATININE 0.9 mg/dL (0.70-1.30); Calcium 8.6 mg/dL (8.5-10.1); Chloride 105 mmol/L (98-107); Glucose 123 mg/dL (74-106); Sodium 141 mmol/L (136-145); Total Protein 7.1 g/dL (6.4-8.2)
[2020-12-20 09:43] LABS: Diff Comment Diff Reviewed
[2020-12-20 09:44] LABS: Macrocytosis 2+
[2020-12-31] MEDS: Heparin 500 UNITS/5 ML SYRINGE IV (08:02)
[2020-12-31] MEDS: Normal Saline Flush 10 ML SYR IVP (08:02)
[2020-12-31 08:34] LABS: Abs Immature Grans 0.01 10^3/uL (0.0-0.06); Absolute Basophil Count 0.01 10^3/uL (0.0-0.2); Absolute Eosinophil Count 0.03 10^3/uL (0.0-0.7); Absolute Lymphocyte Count 1.48 10^3/uL (1.2-3.4); Absolute Monocyte Count 0.36 10^3/uL (0.1-0.8); Absolute Neutrophil Count 1.97 10^3/uL (1.2-6.7); Basophils % 0.3; Eosinophils % 0.8; HCT 34.4 % (40.0-50.0); HGB 12.1 g/dL (13.5-17.5); Immature Grans % 0.3; Lymphocytes % 38.3; MCH 36.9 pg (27.0-33.0); MCHC 35.2 % (32.0-36.0); MCV 104.9 fL (80-95); MPV 9.6 fL (8.0-11.0); Monocytes % 9.3; Nucleated RBC 0 %; RBC 3.28 10^6/uL (4.36-5.78); RDW 12.8 % (11.8-14.1); RDW-SD 49.2 fL; WBC 3.86 10^3/uL (4.4-10.8)
[2020-12-31 09:06] LABS: Platelet Count 83 10^3/uL (130-400)
[2021-01-10] MEDS: Heparin 500 UNITS/5 ML SYRINGE IV (08:16)
[2021-01-10] MEDS: Normal Saline Flush 10 ML SYR IVP (08:16)
[2021-01-10 08:37] LABS: Abs Immature Grans 0.01 10^3/uL (0.0-0.06); Absolute Basophil Count 0.01 10^3/uL (0.0-0.2); Absolute Eosinophil Count 0.01 10^3/uL (0.0-0.7); Absolute Monocyte Count 0.04 10^3/uL (0.1-0.8); Absolute Neutrophil Count 1.33 10^3/uL (1.2-6.7); Basophils % 0.4; Eosinophils % 0.4; HCT 32.8 % (40.0-50.0); HGB 11.2 g/dL (13.5-17.5); Immature Grans % 0.4; Lymphocytes % 41.7; MCH 37.2 pg (27.0-33.0); MCHC 34.1 % (32.0-36.0); Monocytes % 1.7; Nucleated RBC 0 %; RBC 3.01 10^6/uL (4.36-5.78); RDW 13.2 % (11.8-14.1); RDW-SD 52.4 fL
[2021-01-10 08:48] LABS: Diff Comment Diff Reviewed; Neutrophils % 55.4
[2021-01-10 08:49] LABS: Platelet Count 33 10^3/uL (130-400)
[2021-01-10 08:50] LABS: Macrocytosis 2+
== END 2021-01-10 23:59 | disposition home or self-care (01) ==
LOC: INF 03:37
PROVIDERS: PCP Internal Medicine; Visit Provider Internal Medicine Hematology & Oncology
DX: C92.00 Acute myeloblastic leukemia, not having achieved remission (principal); Z45.2 Encounter for adjustment and management of vascular access device
CPT/HCPCS: 36591; 80053; 86900; 86901; 85025

== ENCOUNTER 2021-02-04 00:52 | Outpatient (RCR) | payer MEDICARE, SELFPAY ==
[2021-01-11 00:06] VITALS: BP 117/84; PULSE 67; RESP 16; TEMP 36.6
[2021-01-14] MEDS: Normal Saline Flush 10 ML SYR IVP (08:09)
[2021-01-14] MEDS: Heparin 500 UNITS/5 ML SYRINGE IV (08:09)
[2021-01-14 08:22] LABS: Nucleated RBC 0 %
[2021-01-14 08:24] LABS: HCT 33.2 % (40.0-50.0); HGB 11.3 g/dL (13.5-17.5); MCH 36.8 pg (27.0-33.0); MCV 108.1 fL (80-95); MPV 10.1 fL (8.0-11.0); Platelet Count 70 10^3/uL (130-400); RBC 3.07 10^6/uL (4.36-5.78); RDW 13.2 % (11.8-14.1); RDW-SD 52.5 fL
[2021-01-14 08:30] LABS: WBC 1.81 10^3/uL (4.4-10.8)
[2021-01-14 08:59] LABS: Absolute Basophil Count 0.04 10^3/uL (0.0-0.2); Absolute Lymphocyte Count 1.16 10^3/uL (1.2-3.4); Absolute Monocyte Count 0.04 10^3/uL (0.1-0.8); Absolute Neutrophil Count 0.58 10^3/uL (1.2-6.7); Atypical Lymphocytes % 4; Bands % 4; Diff Comment Manual Differential; Macrocytosis 2+
[2021-01-21 08:14] LABS: Abs Immature Grans 0.02 10^3/uL (0.0-0.06); Absolute Basophil Count 0.01 10^3/uL (0.0-0.2); Absolute Eosinophil Count 0.01 10^3/uL (0.0-0.7); Absolute Monocyte Count 0.27 10^3/uL (0.1-0.8); Absolute Neutrophil Count 0.76 10^3/uL (1.2-6.7); Basophils % 0.4; Eosinophils % 0.4; HCT 34.3 % (40.0-50.0); HGB 11.5 g/dL (13.5-17.5); Immature Grans % 0.8; Lymphocytes % 56.7; MCHC 33.5 % (32.0-36.0); MCV 110.3 fL (80-95); MPV 9.8 fL (8.0-11.0); Monocytes % 10.9; Neutrophils % 30.8; Nucleated RBC 0 %; Platelet Count 107 10^3/uL (130-400); RBC 3.11 10^6/uL (4.36-5.78); RDW 13.8 % (11.8-14.1); RDW-SD 54.9 fL; WBC 2.47 10^3/uL (4.4-10.8)
[2021-01-21 08:33] LABS: Diff Comment Diff Reviewed; Macrocytosis 2+
[2021-01-21] MEDS: Normal Saline Flush 10 ML SYR IVP (08:55)
[2021-01-31] MEDS: Normal Saline Flush 10 ML SYR IVP (13:03)
[2021-01-31] MEDS: Heparin 500 UNITS/5 ML SYRINGE IV (13:03)
[2021-01-31 13:13] LABS: Abs Immature Grans 0.01 10^3/uL (0.0-0.06); Absolute Basophil Count 0.01 10^3/uL (0.0-0.2); Absolute Lymphocyte Count 1.67 10^3/uL (1.2-3.4); Absolute Monocyte Count 0.48 10^3/uL (0.1-0.8); Absolute Neutrophil Count 1.02 10^3/uL (1.2-6.7); Basophils % 0.3; HCT 33.6 % (40.0-50.0); HGB 11.7 g/dL (13.5-17.5); Immature Grans % 0.3; Lymphocytes % 52.4; MCH 37.5 pg (27.0-33.0); MCHC 34.8 % (32.0-36.0); MCV 107.7 fL (80-95); MPV 10.2 fL (8.0-11.0); Nucleated RBC 0 %; Platelet Count 65 10^3/uL (130-400); RBC 3.12 10^6/uL (4.36-5.78); RDW 14.2 % (11.8-14.1); WBC 3.19 10^3/uL (4.4-10.8)
[2021-01-31 13:32] LABS: ALT 45 U/L (16-63); AST 24 U/L (15-37); Alkaline Phosphatase 117 U/L (46-116); Anion Gap 7.2 mmol/L (3-11); BUN 11 mg/dL (7-18); Bilirubin, Total 0.5 mg/dL (0.2-1.0); CO2 28.8 mmol/L (21.0-32.0); CREATININE 0.9 mg/dL (0.70-1.30); Calcium 8.5 mg/dL (8.5-10.1); Chloride 106 mmol/L (98-107); Glucose 115 mg/dL (74-106); Potassium 4.1 mmol/L (3.5-5.1); Sodium 142 mmol/L (136-145); Total Protein 7.2 g/dL (6.4-8.2)
[2021-01-31 13:34] LABS: Diff Comment RBC Morph Reviewed; Macrocytosis 2+; Polychromasia Present
== END 2021-02-10 23:59 | disposition home or self-care (01) ==
LOC: INF 00:52
PROVIDERS: PCP Internal Medicine; Visit Provider Internal Medicine Hematology & Oncology
DX: C92.00 Acute myeloblastic leukemia, not having achieved remission (principal); Z45.2 Encounter for adjustment and management of vascular access device
CPT/HCPCS: 36591; 80053; 86900; 86901; 85025

== ENCOUNTER 2021-02-25 02:42 | Outpatient (RCR) | payer MEDICARE, SELFPAY ==
[2021-02-11 00:19] VITALS: BP 117/84; PULSE 67; RESP 16; TEMP 36.6
[2021-02-11] MEDS: Normal Saline Flush 10 ML SYR IVP (07:38)
[2021-02-11] MEDS: Heparin 500 UNITS/5 ML SYRINGE IV (07:39)
[2021-02-11 07:47] LABS: Abs Immature Grans 0.01 10^3/uL (0.0-0.06); Absolute Basophil Count 0.01 10^3/uL (0.0-0.2); Absolute Monocyte Count 0.36 10^3/uL (0.1-0.8); Absolute Neutrophil Count 1.55 10^3/uL (1.2-6.7); Basophils % 0.3; HCT 32.4 % (40.0-50.0); HGB 11.4 g/dL (13.5-17.5); Immature Grans % 0.3; Lymphocytes % 43.7; MCH 37.6 pg (27.0-33.0); MCHC 35.2 % (32.0-36.0); MCV 106.9 fL (80-95); MPV 9.8 fL (8.0-11.0); Monocytes % 10.5; Neutrophils % 45.2; Nucleated RBC 0 %; RBC 3.03 10^6/uL (4.36-5.78); RDW 14.1 % (11.8-14.1); RDW-SD 55.5 fL; WBC 3.43 10^3/uL (4.4-10.8)
[2021-02-11 08:06] LABS: Diff Comment Diff Reviewed; Macrocytosis 2+; Platelet Count 56 10^3/uL (130-400); Polychromasia Present
[2021-02-25 08:06] VITALS: BP 117/84; PULSE 67; RESP 16; TEMP 36.6
[2021-02-25] MEDS: Normal Saline Flush 10 ML SYR IVP (08:07)
[2021-02-25] MEDS: Heparin 500 UNITS/5 ML SYRINGE IV (08:07)
[2021-02-25 08:16] LABS: HCT 30.1 % (40.0-50.0); HGB 10.3 g/dL (13.5-17.5); MCH 37.3 pg (27.0-33.0); MCHC 34.2 % (32.0-36.0); MCV 109.1 fL (80-95); MPV 9.2 fL (8.0-11.0); Nucleated RBC 0 %; RBC 2.76 10^6/uL (4.36-5.78); RDW 15.9 % (11.8-14.1); RDW-SD 62.6 fL
[2021-02-25 08:20] LABS: WBC 1.69 10^3/uL (4.4-10.8)
[2021-02-25 08:36] LABS: Absolute Basophil Count 0.02 10^3/uL (0.0-0.2); Absolute Monocyte Count 0.03 10^3/uL (0.1-0.8); Absolute Neutrophil Count 0.64 10^3/uL (1.2-6.7); Atypical Lymphocytes % 9; Platelet Count 43 10^3/uL (130-400)
[2021-02-25 08:37] LABS: Diff Comment Manual Differential; Macrocytosis 1+
== END 2021-03-12 23:59 | disposition home or self-care (01) ==
LOC: INF 02:42
PROVIDERS: PCP Internal Medicine; Visit Provider Internal Medicine Hematology & Oncology
DX: C92.00 Acute myeloblastic leukemia, not having achieved remission (principal); Z45.2 Encounter for adjustment and management of vascular access device
CPT/HCPCS: 36591; 86900; 86901; 85025

== ENCOUNTER 2021-04-08 03:33 | Outpatient (RCR) | payer MEDICARE, SELFPAY ==
[2021-03-13 00:06] VITALS: BP 117/84; PULSE 67; RESP 16; TEMP 36.6
[2021-03-14] MEDS: Normal Saline Flush 10 ML SYR IVP (10:17)
[2021-03-14 10:23] LABS: Abs Immature Grans 0.01 10^3/uL (0.0-0.06); Absolute Eosinophil Count 0.01 10^3/uL (0.0-0.7); Absolute Lymphocyte Count 1.31 10^3/uL (1.2-3.4); Absolute Monocyte Count 0.32 10^3/uL (0.1-0.8); Absolute Neutrophil Count 0.63 10^3/uL (1.2-6.7); Eosinophils % 0.4; HCT 28.5 % (40.0-50.0); HGB 10.2 g/dL (13.5-17.5); Immature Grans % 0.4; Lymphocytes % 57.5; MCH 38.9 pg (27.0-33.0); MCHC 35.8 % (32.0-36.0); MCV 108.8 fL (80-95); MPV 10.7 fL (8.0-11.0); Neutrophils % 27.7; Nucleated RBC 0 %; RBC 2.62 10^6/uL (4.36-5.78); RDW 15.6 % (11.8-14.1); RDW-SD 61.2 fL; WBC 2.28 10^3/uL (4.4-10.8)
[2021-03-14 10:39] LABS: ALT 45 U/L (16-63); AST 21 U/L (15-37); Albumin 3.8 g/dL (3.4-5.0); Alkaline Phosphatase 109 U/L (46-116); Anion Gap 4.9 mmol/L (3-11); BUN 13 mg/dL (7-18); Bilirubin, Total 0.4 mg/dL (0.2-1.0); CO2 28.1 mmol/L (21.0-32.0); CREATININE 0.9 mg/dL (0.70-1.30); Calcium 8.2 mg/dL (8.5-10.1); Chloride 106 mmol/L (98-107); Glucose 114 mg/dL (74-106); Potassium 4.2 mmol/L (3.5-5.1); Sodium 139 mmol/L (136-145); Total Protein 6.7 g/dL (6.4-8.2)
[2021-03-14 10:52] LABS: Diff Comment Diff Reviewed; Macrocytosis 2+
[2021-03-14 10:53] LABS: Platelet Count 37 10^3/uL (130-400)
[2021-03-21] MEDS: Normal Saline Flush 10 ML SYR IVP (09:03)
[2021-03-21 09:12] LABS: HCT 28.1 % (40.0-50.0); HGB 9.9 g/dL (13.5-17.5); MCH 38.5 pg (27.0-33.0); MCHC 35.2 % (32.0-36.0); MCV 109.3 fL (80-95); MPV 9.4 fL (8.0-11.0); Nucleated RBC 0 %; Platelet Count 32 10^3/uL (130-400); RBC 2.57 10^6/uL (4.36-5.78); RDW 15.7 % (11.8-14.1); RDW-SD 61.3 fL; WBC 2.56 10^3/uL (4.4-10.8)
[2021-03-21 09:38] LABS: Absolute Eosinophil Count 0.05 10^3/uL (0.0-0.7); Absolute Lymphocyte Count 1.38 10^3/uL (1.2-3.4); Absolute Monocyte Count 0.28 10^3/uL (0.1-0.8); Absolute Neutrophil Count 0.84 10^3/uL (1.2-6.7); Anisocytosis 1+; Diff Comment Manual Differential; Macrocytosis 1+
[2021-03-28 09:09] LABS: Abs Immature Grans 0.01 10^3/uL (0.0-0.06); Absolute Eosinophil Count 0.01 10^3/uL (0.0-0.7); Absolute Lymphocyte Count 1.42 10^3/uL (1.2-3.4); Absolute Monocyte Count 0.44 10^3/uL (0.1-0.8); Eosinophils % 0.4; HCT 25.4 % (40.0-50.0); Immature Grans % 0.4; MCH 38.8 pg (27.0-33.0); MCHC 35.4 % (32.0-36.0); MCV 109.5 fL (80-95); Monocytes % 17.1; Neutrophils % 27.1; Nucleated RBC 0 %; RBC 2.32 10^6/uL (4.36-5.78); RDW 15.6 % (11.8-14.1); RDW-SD 61.2 fL; WBC 2.58 10^3/uL (4.4-10.8)
[2021-03-28] MEDS: Normal Saline Flush 10 ML SYR IVP (09:12)
[2021-03-28 09:21] LABS: ALT 44 U/L (16-63); AST 18 U/L (15-37); Albumin 3.7 g/dL (3.4-5.0); Alkaline Phosphatase 108 U/L (46-116); Anion Gap 5.8 mmol/L (3-11); BUN 12 mg/dL (7-18); Bilirubin, Total 0.5 mg/dL (0.2-1.0); CO2 29.2 mmol/L (21.0-32.0); CREATININE 0.9 mg/dL (0.70-1.30); Calcium 8.1 mg/dL (8.5-10.1); Chloride 105 mmol/L (98-107); Glucose 129 mg/dL (74-106); Sodium 140 mmol/L (136-145); Total Protein 6.6 g/dL (6.4-8.2)
[2021-03-28 09:24] LABS: Diff Comment Diff Reviewed; Macrocytosis 2+; Platelet Count 27 10^3/uL (130-400)
[2021-04-08] MEDS: Normal Saline Flush 10 ML SYR IVP (08:37)
[2021-04-08 08:47] LABS: HCT 23.8 % (40.0-50.0); HGB 8.4 g/dL (13.5-17.5); MCH 38.9 pg (27.0-33.0); MCHC 35.3 % (32.0-36.0); MCV 110.2 fL (80-95); Nucleated RBC 0 %; RBC 2.16 10^6/uL (4.36-5.78); RDW-SD 64.9 fL; WBC 2.33 10^3/uL (4.4-10.8)
[2021-04-08 09:14] LABS: Platelet Count 23 10^3/uL (130-400)
[2021-04-08 09:15] LABS: Absolute Basophil Count 0.02 10^3/uL (0.0-0.2); Absolute Eosinophil Count 0.02 10^3/uL (0.0-0.7); Absolute Lymphocyte Count 1.56 10^3/uL (1.2-3.4); Absolute Monocyte Count 0.21 10^3/uL (0.1-0.8); Absolute Neutrophil Count 0.51 10^3/uL (1.2-6.7); Bands % 1; Diff Comment Manual Differential
[2021-04-08 09:16] LABS: Macrocytosis 1+
== END 2021-04-12 23:59 | disposition home or self-care (01) ==
LOC: INF 03:33
PROVIDERS: PCP Internal Medicine; Visit Provider Internal Medicine Hematology & Oncology
DX: C92.00 Acute myeloblastic leukemia, not having achieved remission (principal); Z45.2 Encounter for adjustment and management of vascular access device
CPT/HCPCS: 36591; 80053; 86900; 86901; 85025

== ENCOUNTER 2021-05-13 11:30 | Outpatient (RCR) | payer MEDICARE, SELFPAY ==
[2021-04-13 00:03] VITALS: BP 117/84; PULSE 67; RESP 16; TEMP 36.6
[2021-04-15] MEDS: Normal Saline Flush 10 ML SYR IVP (08:48)
[2021-04-15 08:59] LABS: Abs Immature Grans 0.01 10^3/uL (0.0-0.06); Absolute Eosinophil Count 0.01 10^3/uL (0.0-0.7); Absolute Lymphocyte Count 1.45 10^3/uL (1.2-3.4); Absolute Monocyte Count 0.48 10^3/uL (0.1-0.8); Absolute Neutrophil Count 0.62 10^3/uL (1.2-6.7); Eosinophils % 0.4; HCT 21.4 % (40.0-50.0); HGB 7.7 g/dL (13.5-17.5); Immature Grans % 0.4; Lymphocytes % 56.4; MCH 39.5 pg (27.0-33.0); MCV 109.7 fL (80-95); MPV 11.4 fL (8.0-11.0); Monocytes % 18.7; Neutrophils % 24.1; Nucleated RBC 0 %; RBC 1.95 10^6/uL (4.36-5.78); RDW 15.9 % (11.8-14.1); RDW-SD 64.6 fL; WBC 2.57 10^3/uL (4.4-10.8)
[2021-04-15 09:31] LABS: Diff Comment Diff Reviewed
[2021-04-15 09:32] LABS: Macrocytosis 2+; Platelet Count 19 10^3/uL (130-400)
[2021-04-15 14:34] VITALS: BP 110/68; PULSE 70; RESP 16; TEMP 36.5; O2SAT 98
[2021-04-15 14:56] VITALS: BP 109/68; PULSE 68; RESP 16; TEMP 36.4; O2SAT 98
[2021-04-16 12:01] VITALS: BP 118/72; PULSE 64; RESP 17; TEMP 36.4; O2SAT 100
[2021-04-16 12:16] VITALS: BP 115/69; PULSE 68; RESP 17; TEMP 36.4; O2SAT 99
[2021-04-16 12:30] VITALS: BP 116/68; PULSE 66; RESP 17; TEMP 36.5; O2SAT 98
[2021-04-16 13:00] VITALS: BP 114/66; PULSE 66; RESP 17; TEMP 36.6; O2SAT 100
[2021-04-16 13:39] VITALS: BP 120/64; PULSE 59; RESP 17; TEMP 36.5; O2SAT 99
[2021-04-16 14:00] VITALS: BP 128/68; PULSE 67; RESP 17; TEMP 36.5; O2SAT 99
[2021-04-18] MEDS: Normal Saline Flush 10 ML SYR IVP (13:06)
[2021-04-18 13:17] LABS: Abs Immature Grans 0.01 10^3/uL (0.0-0.06); Absolute Eosinophil Count 0.01 10^3/uL (0.0-0.7); Absolute Lymphocyte Count 1.19 10^3/uL (1.2-3.4); Absolute Monocyte Count 0.37 10^3/uL (0.1-0.8); Absolute Neutrophil Count 0.62 10^3/uL (1.2-6.7); Eosinophils % 0.5; HCT 23.6 % (40.0-50.0); HGB 8.5 g/dL (13.5-17.5); Immature Grans % 0.5; Lymphocytes % 54.1; MCV 108.3 fL (80-95); MPV 9.7 fL (8.0-11.0); Monocytes % 16.8; Neutrophils % 28.1; Nucleated RBC 0 %; RBC 2.18 10^6/uL (4.36-5.78); RDW 16.2 % (11.8-14.1); RDW-SD 63.4 fL
[2021-04-18 13:38] LABS: Diff Comment Agrees w/ Instrument; Hypochromasia 2+; Macrocytosis 2+; Platelet Count 21 10^3/uL (130-400)
[2021-04-22] MEDS: Normal Saline Flush 10 ML SYR IVP (08:01)
[2021-04-22 08:14] LABS: HCT 23.4 % (40.0-50.0); HGB 8.5 g/dL (13.5-17.5); MCH 39.2 pg (27.0-33.0); MCHC 36.3 % (32.0-36.0); MCV 107.8 fL (80-95); MPV 9.9 fL (8.0-11.0); Nucleated RBC 0 %; RBC 2.17 10^6/uL (4.36-5.78); RDW 16.4 % (11.8-14.1); RDW-SD 63.1 fL; WBC 2.84 10^3/uL (4.4-10.8)
[2021-04-22 08:29] LABS: ALT 49 U/L (16-63); AST 26 U/L (15-37); Absolute Monocyte Count 0.57 10^3/uL (0.1-0.8); Absolute Neutrophil Count 0.57 10^3/uL (1.2-6.7); Albumin 3.8 g/dL (3.4-5.0); Alkaline Phosphatase 87 U/L (46-116); Anion Gap 8.8 mmol/L (3-11); BUN 15 mg/dL (7-18); CO2 26.2 mmol/L (21.0-32.0); CREATININE 1.1 mg/dL (0.70-1.30); Chloride 105 mmol/L (98-107); Glucose 138 mg/dL (74-106); Potassium 3.9 mmol/L (3.5-5.1); Sodium 140 mmol/L (136-145); Total Protein 6.7 g/dL (6.4-8.2); Uric Acid 6.4 mg/dL (3.5-7.2)
[2021-04-22 08:30] LABS: Anisocytosis 2+; Diff Comment Manual Differential; Macrocytosis 2+; Platelet Count 18 10^3/uL (130-400)
[2021-04-22 14:10] VITALS: BP 126/73; PULSE 71; RESP 18; TEMP 36.3; O2SAT 98
[2021-04-22 14:35] VITALS: BP 115/68; PULSE 80; RESP 18; TEMP 36.7; O2SAT 99
[2021-04-25] VITALS (7 sets, daily range): BP systolic 113–131; BP diastolic 66–73; PULSE 68–78; RESP 16–19; TEMP 36–36.7; O2SAT 97–100
[2021-04-25] MEDS: Normal Saline Flush 10 ML SYR IVP ×2 (07:32→12:00)
[2021-04-25 07:38] LABS: Abs Immature Grans 0.01 10^3/uL (0.0-0.06); HCT 22.1 % (40.0-50.0); HGB 7.8 g/dL (13.5-17.5); MCH 38.4 pg (27.0-33.0); MCHC 35.3 % (32.0-36.0); MCV 108.9 fL (80-95); MPV 9.7 fL (8.0-11.0); Nucleated RBC 0 %; RBC 2.03 10^6/uL (4.36-5.78); RDW 16.5 % (11.8-14.1); RDW-SD 65.1 fL; WBC 2.73 10^3/uL (4.4-10.8)
[2021-04-25 08:08] LABS: Absolute Lymphocyte Count 1.83 10^3/uL (1.2-3.4); Absolute Monocyte Count 0.25 10^3/uL (0.1-0.8); Absolute Neutrophil Count 0.66 10^3/uL (1.2-6.7); Bands % 1
[2021-04-25 08:09] LABS: Diff Comment Manual Differential; Macrocytosis 1+
[2021-04-25 08:14] LABS: Platelet Count 16 10^3/uL (130-400)
[2021-04-29 08:22] LABS: HCT 22.8 % (40.0-50.0); HGB 8.1 g/dL (13.5-17.5); MCH 36.5 pg (27.0-33.0); MCHC 35.5 % (32.0-36.0); MCV 102.7 fL (80-95); MPV 9.4 fL (8.0-11.0); Nucleated RBC 0 %; RBC 2.22 10^6/uL (4.36-5.78); RDW 19.8 % (11.8-14.1); RDW-SD 73.9 fL; WBC 2.25 10^3/uL (4.4-10.8)
[2021-04-29] MEDS: Normal Saline Flush 10 ML SYR IVP (08:32)
[2021-04-29 08:37] LABS: ALT 43 U/L (16-63); AST 22 U/L (15-37); Albumin 3.6 g/dL (3.4-5.0); Alkaline Phosphatase 77 U/L (46-116); Anion Gap 9.1 mmol/L (3-11); BUN 12 mg/dL (7-18); Bilirubin, Total 1.2 mg/dL (0.2-1.0); CO2 24.9 mmol/L (21.0-32.0); CREATININE 1.1 mg/dL (0.70-1.30); Calcium 8.1 mg/dL (8.5-10.1); Chloride 106 mmol/L (98-107); Glucose 134 mg/dL (74-106); PHOSPHORUS 3.1 mg/dL (2.6-4.7); Potassium 3.8 mmol/L (3.5-5.1); Sodium 140 mmol/L (136-145); Total Protein 6.6 g/dL (6.4-8.2); Uric Acid 5.8 mg/dL (3.5-7.2)
[2021-04-29 08:48] LABS: Absolute Lymphocyte Count 1.55 10^3/uL (1.2-3.4); Absolute Neutrophil Count 0.41 10^3/uL (1.2-6.7); Atypical Lymphocytes % 4; Platelet Count 14 10^3/uL (130-400)
[2021-04-29 08:49] LABS: Absolute Monocyte Count 0.27 10^3/uL (0.1-0.8); Diff Comment Manual Differential; Metamyelocytes % 1; RBC Morphology Normal
[2021-04-30 13:55] VITALS: BP 123/70; PULSE 70; RESP 18; TEMP 36.7; O2SAT 97
[2021-04-30 14:25] VITALS: BP 111/68; PULSE 71; RESP 16; TEMP 36.4; O2SAT 98
[2021-04-30] MEDS: Normal Saline Flush 10 ML SYR IVP (14:40)
[2021-05-02] MEDS: Normal Saline Flush 10 ML SYR IVP (07:54)
[2021-05-02 07:57] LABS: Abs Immature Grans 0.01 10^3/uL (0.0-0.06); Absolute Eosinophil Count 0.02 10^3/uL (0.0-0.7); Absolute Lymphocyte Count 1.33 10^3/uL (1.2-3.4); Eosinophils % 0.9; HGB 7.7 g/dL (13.5-17.5); Immature Grans % 0.4; Lymphocytes % 57.1; MCH 36.7 pg (27.0-33.0); MCV 104.8 fL (80-95); MPV 10.7 fL (8.0-11.0); Monocytes % 21.5; Neutrophils % 20.1; Nucleated RBC 0 %; RDW 19.5 % (11.8-14.1); RDW-SD 75.7 fL; WBC 2.33 10^3/uL (4.4-10.8)
[2021-05-02 08:10] LABS: Absolute Neutrophil Count 0.47 10^3/uL (1.2-6.7)
[2021-05-02 08:25] LABS: Anisocytosis 1+; Diff Comment Agrees w/ Instrument
[2021-05-02 08:26] LABS: Polychromasia Present
[2021-05-02 08:27] LABS: Macrocytosis 1+; Platelet Count 24 10^3/uL (130-400)
[2021-05-02 09:30] VITALS: BP 122/73; PULSE 66; RESP 16; TEMP 36.5; O2SAT 99
[2021-05-02 09:45] VITALS: BP 121/66; PULSE 79; RESP 17; TEMP 36.8; O2SAT 97
[2021-05-02 10:00] VITALS: BP 121/70; PULSE 69; RESP 17; TEMP 36; O2SAT 96
[2021-05-02 10:30] VITALS: BP 121/67; PULSE 68; RESP 17; TEMP 36.8; O2SAT 98
[2021-05-02 11:05] VITALS: BP 118/71; PULSE 64; RESP 18; TEMP 36.9; O2SAT 99
[2021-05-06] VITALS (7 sets, daily range): BP systolic 112–138; BP diastolic 63–74; PULSE 67–81; RESP 16–18; TEMP 36.5–37; O2SAT 74–99
[2021-05-06] MEDS: Normal Saline Flush 10 ML SYR IVP ×2 (08:02→12:44)
[2021-05-06 08:14] LABS: Abs Immature Grans 0.02 10^3/uL (0.0-0.06); Absolute Eosinophil Count 0.03 10^3/uL (0.0-0.7); Absolute Lymphocyte Count 1.29 10^3/uL (1.2-3.4); Absolute Monocyte Count 0.64 10^3/uL (0.1-0.8); Eosinophils % 1.1; HCT 23.1 % (40.0-50.0); Immature Grans % 0.7; Lymphocytes % 48.1; MCH 35.4 pg (27.0-33.0); MCHC 34.6 % (32.0-36.0); MCV 102.2 fL (80-95); MPV 10.5 fL (8.0-11.0); Monocytes % 23.9; Neutrophils % 26.2; Nucleated RBC 0 %; RBC 2.26 10^6/uL (4.36-5.78); RDW 19.6 % (11.8-14.1); RDW-SD 72.4 fL; WBC 2.68 10^3/uL (4.4-10.8)
[2021-05-06 08:24] LABS: ALT 30 U/L (16-63); AST 17 U/L (15-37); Albumin 3.7 g/dL (3.4-5.0); Alkaline Phosphatase 84 U/L (46-116); Anion Gap 9.1 mmol/L (3-11); BUN 16 mg/dL (7-18); Bilirubin, Total 1.3 mg/dL (0.2-1.0); CO2 23.9 mmol/L (21.0-32.0); CREATININE 1.2 mg/dL (0.70-1.30); Chloride 105 mmol/L (98-107); Estimated GFR 59.68 (mL/min/1.73m2); Glucose 136 mg/dL (74-106); PHOSPHORUS 3.3 mg/dL (2.6-4.7); Potassium 3.7 mmol/L (3.5-5.1); Sodium 138 mmol/L (136-145); Total Protein 6.8 g/dL (6.4-8.2); Uric Acid 5.7 mg/dL (3.5-7.2)
[2021-05-06 08:39] LABS: Platelet Count 12 10^3/uL (130-400)
[2021-05-06 08:44] LABS: Diff Comment Agrees w/ Instrument; Macrocytosis 1+; Poikilocytes 1+; Polychromasia Present
[2021-05-09] MEDS: Normal Saline Flush 10 ML SYR IVP (07:56)
[2021-05-09 08:33] LABS: Abs Immature Grans 0.02 10^3/uL (0.0-0.06); HCT 23.3 % (40.0-50.0); HGB 8.1 g/dL (13.5-17.5); MCH 34.9 pg (27.0-33.0); MCHC 34.8 % (32.0-36.0); MCV 100.4 fL (80-95); MPV 10.7 fL (8.0-11.0); Nucleated RBC 0 %; RBC 2.32 10^6/uL (4.36-5.78); RDW-SD 71.4 fL; WBC 2.74 10^3/uL (4.4-10.8)
[2021-05-09 09:26] LABS: Absolute Lymphocyte Count 1.42 10^3/uL (1.2-3.4); Absolute Monocyte Count 0.49 10^3/uL (0.1-0.8); Absolute Neutrophil Count 0.82 10^3/uL (1.2-6.7); Bands % 0; Diff Comment Manual Differential
[2021-05-09 09:27] LABS: Basophilic Stippling Present; Macrocytosis 1+; Polychromasia Present
[2021-05-09 09:28] LABS: Platelet Count 13 10^3/uL (130-400)
[2021-05-09 14:05] VITALS: BP 141/70; PULSE 69; RESP 17; TEMP 36.5; O2SAT 100
[2021-05-09 14:22] VITALS: BP 115/74; PULSE 72; RESP 16; TEMP 36.6; O2SAT 99
[2021-05-13] VITALS (7 sets, daily range): BP systolic 112–133; BP diastolic 63–76; PULSE 62–80; RESP 17–18; TEMP 36.5–36.7; O2SAT 97–99
== END 2021-05-13 23:59 | disposition home or self-care (01) ==
LOC: INF 11:30
PROVIDERS: PCP Internal Medicine; Visit Provider Internal Medicine Hematology & Oncology
DX: C92.00 Acute myeloblastic leukemia, not having achieved remission (principal); Z45.2 Encounter for adjustment and management of vascular access device
CPT/HCPCS: 36430; 36591; 80053; 86850; 86900; 86901; 86920; 84100; 84550; 85025; P9016; P9035

== ENCOUNTER 2021-06-10 12:00 | Outpatient (RCR) | payer MEDICARE, SELFPAY ==
[2021-05-13 08:42] LABS: Abs Immature Grans 0.01 10^3/uL (0.0-0.06); Absolute Eosinophil Count 0.01 10^3/uL (0.0-0.7); Absolute Monocyte Count 0.44 10^3/uL (0.1-0.8); Eosinophils % 0.4; HCT 21.1 % (40.0-50.0); HGB 7.4 g/dL (13.5-17.5); Immature Grans % 0.4; Lymphocytes % 57.5; MCH 34.9 pg (27.0-33.0); MCHC 35.1 % (32.0-36.0); MCV 99.5 fL (80-95); MPV 10.1 fL (8.0-11.0); Monocytes % 19.5; Neutrophils % 22.2; Nucleated RBC 0 %; RBC 2.12 10^6/uL (4.36-5.78); RDW 19.9 % (11.8-14.1); WBC 2.26 10^3/uL (4.4-10.8)
[2021-05-13 09:11] LABS: ALT 23 U/L (16-63); AST 15 U/L (15-37); Albumin 3.4 g/dL (3.4-5.0); Alkaline Phosphatase 74 U/L (46-116); Anion Gap 8.6 mmol/L (3-11); BUN 13 mg/dL (7-18); Bilirubin, Total 0.9 mg/dL (0.2-1.0); CO2 25.4 mmol/L (21.0-32.0); Calcium 7.6 mg/dL (8.5-10.1); Chloride 106 mmol/L (98-107); Glucose 115 mg/dL (74-106); PHOSPHORUS 3.2 mg/dL (2.6-4.7); Potassium 3.8 mmol/L (3.5-5.1); Sodium 140 mmol/L (136-145); Total Protein 6.4 g/dL (6.4-8.2); Uric Acid 5.4 mg/dL (3.5-7.2)
[2021-05-13 09:19] LABS: Platelet Count 13 10^3/uL (130-400)
[2021-05-13 09:20] LABS: Anisocytosis 1+; Diff Comment Diff Reviewed; Polychromasia Present
[2021-05-14 00:14] VITALS: BP 112/66; PULSE 65; RESP 18; TEMP 36.5
[2021-05-16] MEDS: Normal Saline Flush 10 ML SYR IVP (08:03)
[2021-05-16 08:05] LABS: HCT 24.1 % (40.0-50.0); HGB 8.3 g/dL (13.5-17.5); MCH 33.9 pg (27.0-33.0); MCHC 34.4 % (32.0-36.0); MCV 98.4 fL (80-95); MPV 9.7 fL (8.0-11.0); Nucleated RBC 0 %; RBC 2.45 10^6/uL (4.36-5.78); RDW 18.8 % (11.8-14.1); RDW-SD 66.4 fL; WBC 2.22 10^3/uL (4.4-10.8)
[2021-05-16 08:20] LABS: Absolute Lymphocyte Count 1.55 10^3/uL (1.2-3.4); Absolute Monocyte Count 0.18 10^3/uL (0.1-0.8); Absolute Neutrophil Count 0.49 10^3/uL (1.2-6.7); Diff Comment Manual Differential; Platelet Count 13 10^3/uL (130-400)
[2021-05-16 08:21] LABS: RBC Morphology Normal
[2021-05-20] VITALS (7 sets, daily range): BP systolic 116–122; BP diastolic 63–67; PULSE 71–77; RESP 16–17; TEMP 36.4–36.6; O2SAT 97–99
[2021-05-20] MEDS: Normal Saline Flush 10 ML SYR IVP (07:57)
[2021-05-20 08:09] LABS: Absolute Eosinophil Count 0.02 10^3/uL (0.0-0.7); HCT 22.7 % (40.0-50.0); HGB 7.8 g/dL (13.5-17.5); MCH 33.9 pg (27.0-33.0); MCHC 34.4 % (32.0-36.0); MCV 98.7 fL (80-95); MPV 12.1 fL (8.0-11.0); Nucleated RBC 0 %; RDW 18.7 % (11.8-14.1); RDW-SD 65.9 fL; WBC 2.35 10^3/uL (4.4-10.8)
[2021-05-20 08:20] LABS: Absolute Lymphocyte Count 1.27 10^3/uL (1.2-3.4); Absolute Monocyte Count 0.49 10^3/uL (0.1-0.8); Absolute Neutrophil Count 0.56 10^3/uL (1.2-6.7); Atypical Lymphocytes % 2; Bands % 2; Diff Comment Manual Differential; Platelet Count 10 10^3/uL (130-400); RBC Morphology Normal
[2021-05-20 08:21] LABS: ALT 30 U/L (16-63); AST 18 U/L (15-37); Albumin 3.7 g/dL (3.4-5.0); Alkaline Phosphatase 76 U/L (46-116); Anion Gap 7.7 mmol/L (3-11); BUN 16 mg/dL (7-18); Bilirubin, Total 1.5 mg/dL (0.2-1.0); CO2 24.3 mmol/L (21.0-32.0); CREATININE 1.2 mg/dL (0.70-1.30); Calcium 8.1 mg/dL (8.5-10.1); Chloride 106 mmol/L (98-107); Estimated GFR 59.68 (mL/min/1.73m2); Glucose 135 mg/dL (74-106); PHOSPHORUS 3.2 mg/dL (2.6-4.7); Potassium 3.9 mmol/L (3.5-5.1); Sodium 138 mmol/L (136-145); Total Protein 6.9 g/dL (6.4-8.2); Uric Acid 5.9 mg/dL (3.5-7.2)
[2021-05-23] VITALS (7 sets, daily range): BP systolic 106–127; BP diastolic 35–70; PULSE 62–71; RESP 16–17; TEMP 35.8–36.7; O2SAT 97–100
[2021-05-23] MEDS: Normal Saline Flush 10 ML SYR IVP (07:58)
[2021-05-23 08:17] LABS: Abs Immature Grans 0.02 10^3/uL (0.0-0.06); Absolute Eosinophil Count 0.02 10^3/uL (0.0-0.7); Absolute Lymphocyte Count 1.31 10^3/uL (1.2-3.4); Absolute Monocyte Count 0.48 10^3/uL (0.1-0.8); Eosinophils % 0.9; HCT 22.9 % (40.0-50.0); HGB 7.9 g/dL (13.5-17.5); Immature Grans % 0.9; Lymphocytes % 58.7; MCH 33.3 pg (27.0-33.0); MCHC 34.5 % (32.0-36.0); MCV 96.6 fL (80-95); MPV 10.2 fL (8.0-11.0); Monocytes % 21.5; Nucleated RBC 0 %; RBC 2.37 10^6/uL (4.36-5.78); RDW 18.6 % (11.8-14.1); RDW-SD 62.9 fL; WBC 2.23 10^3/uL (4.4-10.8)
[2021-05-23 08:54] LABS: Diff Comment Diff Reviewed; Platelet Count 14 10^3/uL (130-400); RBC Morphology Normal
[2021-05-27] MEDS: Normal Saline Flush 10 ML SYR IVP ×2 (08:02→14:00)
[2021-05-27 08:23] LABS: Abs Immature Grans 0.01 10^3/uL (0.0-0.06); Absolute Lymphocyte Count 1.27 10^3/uL (1.2-3.4); Absolute Monocyte Count 0.53 10^3/uL (0.1-0.8); Absolute Neutrophil Count 0.53 10^3/uL (1.2-6.7); HCT 25.3 % (40.0-50.0); HGB 8.8 g/dL (13.5-17.5); Immature Grans % 0.4; Lymphocytes % 54.3; MCH 32.7 pg (27.0-33.0); MCHC 34.8 % (32.0-36.0); MCV 94.1 fL (80-95); MPV 8.5 fL (8.0-11.0); Monocytes % 22.6; Neutrophils % 22.7; Nucleated RBC 0 %; RBC 2.69 10^6/uL (4.36-5.78); RDW 18.6 % (11.8-14.1); WBC 2.34 10^3/uL (4.4-10.8)
[2021-05-27 08:35] LABS: ALT 24 U/L (16-63); AST 15 U/L (15-37); Albumin 3.8 g/dL (3.4-5.0); Alkaline Phosphatase 86 U/L (46-116); Anion Gap 7.5 mmol/L (3-11); BUN 19 mg/dL (7-18); Bilirubin, Total 1.2 mg/dL (0.2-1.0); CO2 24.5 mmol/L (21.0-32.0); CREATININE 1.3 mg/dL (0.70-1.30); Calcium 8.1 mg/dL (8.5-10.1); Chloride 104 mmol/L (98-107); Estimated GFR 54.42 (mL/min/1.73m2); Glucose 136 mg/dL (74-106); PHOSPHORUS 3.6 mg/dL (2.6-4.7); Sodium 136 mmol/L (136-145); Total Protein 7.3 g/dL (6.4-8.2); Uric Acid 6.3 mg/dL (3.5-7.2)
[2021-05-27 08:49] LABS: Diff Comment Diff Reviewed; Platelet Count 10 10^3/uL (130-400); RBC Morphology Normal
[2021-05-27 14:00] VITALS: BP 149/76; PULSE 73; RESP 17; TEMP 36.4; O2SAT 100
[2021-05-27 14:30] VITALS: BP 128/57; PULSE 72; RESP 17; TEMP 36.7; O2SAT 98
[2021-05-30] VITALS (7 sets, daily range): BP systolic 121–134; BP diastolic 63–72; PULSE 68–83; RESP 16–18; TEMP 36.4–36.6; O2SAT 96–99
[2021-05-30] MEDS: Normal Saline Flush 10 ML SYR IVP ×2 (08:00→12:48)
[2021-05-30 08:06] LABS: HCT 22.5 % (40.0-50.0); HGB 7.8 g/dL (13.5-17.5); MCH 32.8 pg (27.0-33.0); MCHC 34.7 % (32.0-36.0); MCV 94.5 fL (80-95); MPV 9.8 fL (8.0-11.0); Nucleated RBC 0 %; RBC 2.38 10^6/uL (4.36-5.78); RDW 18.5 % (11.8-14.1); RDW-SD 60.2 fL; WBC 2.41 10^3/uL (4.4-10.8)
[2021-05-30 08:18] LABS: Absolute Lymphocyte Count 1.64 10^3/uL (1.2-3.4); Absolute Monocyte Count 0.17 10^3/uL (0.1-0.8); Absolute Neutrophil Count 0.58 10^3/uL (1.2-6.7); Atypical Lymphocytes % 1; Bands % 2; Platelet Count 10 10^3/uL (130-400)
[2021-05-30 08:19] LABS: Anisocytosis 1+; Diff Comment Manual Differential; Other Cells % 1
[2021-06-03] MEDS: Normal Saline Flush 10 ML SYR IVP (08:08)
[2021-06-03 08:17] LABS: Abs Immature Grans 0.02 10^3/uL (0.0-0.06); Absolute Monocyte Count 0.52 10^3/uL (0.1-0.8); Absolute Neutrophil Count 0.69 10^3/uL (1.2-6.7); HCT 24.3 % (40.0-50.0); HGB 8.5 g/dL (13.5-17.5); Immature Grans % 0.8; Lymphocytes % 49.4; MCH 32.2 pg (27.0-33.0); MPV 10.7 fL (8.0-11.0); Monocytes % 21.4; Neutrophils % 28.4; Nucleated RBC 0 %; RBC 2.64 10^6/uL (4.36-5.78); RDW 17.5 % (11.8-14.1); RDW-SD 55.9 fL; WBC 2.43 10^3/uL (4.4-10.8)
[2021-06-03 08:31] LABS: ALT 21 U/L (16-63); AST 14 U/L (15-37); Albumin 3.6 g/dL (3.4-5.0); Alkaline Phosphatase 90 U/L (46-116); BUN 13 mg/dL (7-18); Bilirubin, Total 1.3 mg/dL (0.2-1.0); CREATININE 1.2 mg/dL (0.70-1.30); Chloride 104 mmol/L (98-107); Estimated GFR 59.68 (mL/min/1.73m2); Glucose 145 mg/dL (74-106); PHOSPHORUS 3.7 mg/dL (2.6-4.7); Sodium 138 mmol/L (136-145); Total Protein 7.1 g/dL (6.4-8.2)
[2021-06-03 08:35] LABS: Diff Comment Agrees w/ Instrument; Platelet Count 9 10^3/uL (130-400); RBC Morphology Normal
[2021-06-03 13:56] VITALS: BP 131/66; PULSE 83; RESP 17; TEMP 36.5; O2SAT 97
[2021-06-03 14:20] VITALS: BP 123/69; PULSE 81; RESP 17; TEMP 36.8; O2SAT 98
[2021-06-06] VITALS (8 sets, daily range): BP systolic 100–139; BP diastolic 61–74; PULSE 71–97; RESP 16–20; TEMP 36.3–37; O2SAT 96–98
[2021-06-06] MEDS: Normal Saline Flush 10 ML SYR IVP ×2 (08:01→14:45)
[2021-06-06 08:13] LABS: Abs Immature Grans 0.01 10^3/uL (0.0-0.06); HCT 23.3 % (40.0-50.0); MCH 31.6 pg (27.0-33.0); MCHC 34.3 % (32.0-36.0); MCV 92.1 fL (80-95); Nucleated RBC 0 %; RBC 2.53 10^6/uL (4.36-5.78); RDW 17.2 % (11.8-14.1); RDW-SD 54.4 fL; WBC 2.23 10^3/uL (4.4-10.8)
[2021-06-06 08:56] LABS: Absolute Lymphocyte Count 1.36 10^3/uL (1.2-3.4); Absolute Monocyte Count 0.16 10^3/uL (0.1-0.8); Atypical Lymphocytes % 3; Bands % 8; Metamyelocytes % 1; Myelocytes % 1; Platelet Count 9 10^3/uL (130-400)
[2021-06-06 08:57] LABS: Anisocytosis 1+; Diff Comment Manual Differential
[2021-06-06 09:01] LABS: Absolute Neutrophil Count 0.67 10^3/uL (1.2-6.7)
[2021-06-10] VITALS (9 sets, daily range): BP systolic 114–142; BP diastolic 54–78; PULSE 65–83; RESP 16–17; TEMP 36–37; O2SAT 96–100
[2021-06-10] MEDS: Normal Saline Flush 10 ML SYR IVP (08:23)
== END 2021-06-10 23:59 | disposition home or self-care (01) ==
LOC: INF 12:00
PROVIDERS: PCP Internal Medicine; Visit Provider Internal Medicine Hematology & Oncology
DX: C92.00 Acute myeloblastic leukemia, not having achieved remission (principal); Z45.2 Encounter for adjustment and management of vascular access device
CPT/HCPCS: 36430; 36591; 80053; 86850; 86900; 86901; 86920; 81050; 84100; 84550; 84560; 85025; P9016; P9035

== ENCOUNTER 2021-07-11 02:57 | Outpatient (RCR) | payer MEDICARE, SELFPAY ==
[2021-06-10 08:37] LABS: Abs Immature Grans 0.02 10^3/uL (0.0-0.06); HCT 22.8 % (40.0-50.0); MCH 31.4 pg (27.0-33.0); MCHC 35.1 % (32.0-36.0); MCV 89.4 fL (80-95); MPV 10.7 fL (8.0-11.0); Nucleated RBC 0 %; RBC 2.55 10^6/uL (4.36-5.78); RDW 17.1 % (11.8-14.1); RDW-SD 53.2 fL; WBC 2.03 10^3/uL (4.4-10.8)
[2021-06-10 09:02] LABS: Absolute Eosinophil Count 0.04 10^3/uL (0.0-0.7); Absolute Lymphocyte Count 0.95 10^3/uL (1.2-3.4); Absolute Monocyte Count 0.35 10^3/uL (0.1-0.8); Absolute Neutrophil Count 0.69 10^3/uL (1.2-6.7); Platelet Count 9 10^3/uL (130-400)
[2021-06-10 09:03] LABS: Diff Comment Manual Differential; Hypochromasia 2+
[2021-06-10 09:04] LABS: ALT 25 U/L (16-63); AST 15 U/L (15-37); Albumin 3.5 g/dL (3.4-5.0); Alkaline Phosphatase 87 U/L (46-116); Anion Gap 7.6 mmol/L (3-11); BUN 14 mg/dL (7-18); Bilirubin, Total 1.2 mg/dL (0.2-1.0); CO2 25.4 mmol/L (21.0-32.0); CREATININE 1.1 mg/dL (0.70-1.30); Calcium 8.1 mg/dL (8.5-10.1); Chloride 105 mmol/L (98-107); Glucose 138 mg/dL (74-106); PHOSPHORUS 3.1 mg/dL (2.6-4.7); Sodium 138 mmol/L (136-145); Total Protein 6.9 g/dL (6.4-8.2); Uric Acid 5.5 mg/dL (3.5-7.2)
[2021-06-11 00:04] VITALS: BP 120/73; PULSE 68; RESP 16; TEMP 36.6
[2021-06-13] MEDS: Normal Saline Flush 10 ML SYR IVP ×2 (08:01→15:21)
[2021-06-13 08:27] LABS: Abs Immature Grans 0.01 10^3/uL (0.0-0.06); Absolute Lymphocyte Count 1.13 10^3/uL (1.2-3.4); Absolute Monocyte Count 0.44 10^3/uL (0.1-0.8); Absolute Neutrophil Count 0.56 10^3/uL (1.2-6.7); HGB 8.5 g/dL (13.5-17.5); Immature Grans % 0.5; Lymphocytes % 52.8; MCH 30.7 pg (27.0-33.0); MCV 90.3 fL (80-95); MPV 12.4 fL (8.0-11.0); Monocytes % 20.6; Neutrophils % 26.1; Nucleated RBC 0 %; RBC 2.77 10^6/uL (4.36-5.78); WBC 2.14 10^3/uL (4.4-10.8)
[2021-06-13 08:32] LABS: Platelet Count 11 10^3/uL (130-400)
[2021-06-13 08:38] LABS: Diff Comment Agrees w/ Instrument
[2021-06-13 08:39] LABS: RBC Morphology Normal
[2021-06-13 14:51] VITALS: BP 119/33; PULSE 80; RESP 20; TEMP 36.5; O2SAT 98
[2021-06-13 15:18] VITALS: BP 132/83; PULSE 74; RESP 20; TEMP 36.8; O2SAT 95
[2021-06-17] MEDS: Normal Saline Flush 10 ML SYR IVP ×2 (08:07→12:45)
[2021-06-17 08:21] LABS: HCT 22.7 % (40.0-50.0); MCH 31.1 pg (27.0-33.0); MCHC 35.2 % (32.0-36.0); MCV 88.3 fL (80-95); MPV 9.7 fL (8.0-11.0); Nucleated RBC 0 %; RBC 2.57 10^6/uL (4.36-5.78); RDW 15.6 % (11.8-14.1); RDW-SD 45.1 fL
[2021-06-17 08:27] LABS: WBC 1.92 10^3/uL (4.4-10.8)
[2021-06-17 08:31] LABS: Absolute Basophil Count 0.02 10^3/uL (0.0-0.2); Absolute Lymphocyte Count 1.25 10^3/uL (1.2-3.4); Absolute Monocyte Count 0.13 10^3/uL (0.1-0.8); Absolute Neutrophil Count 0.42 10^3/uL (1.2-6.7); Atypical Lymphocytes % 1
[2021-06-17 08:32] LABS: Diff Comment Manual Differential; Other Cells % 5; Platelet Count 5 10^3/uL (130-400); RBC Morphology Normal
[2021-06-17 12:06] VITALS: BP 150/86; PULSE 81; RESP 16; TEMP 36.5; O2SAT 98
[2021-06-17 12:21] VITALS: BP 122/66; PULSE 76; RESP 16; TEMP 36.8; O2SAT 97
[2021-06-17 12:36] VITALS: BP 126/71; PULSE 78; RESP 16; TEMP 36.8; O2SAT 98
[2021-06-17 13:38] VITALS: BP 121/71; PULSE 72; RESP 16; TEMP 36.9; O2SAT 97
[2021-06-17 13:53] VITALS: BP 119/67; PULSE 64; RESP 16; TEMP 37; O2SAT 99
[2021-06-17 14:15] VITALS: BP 121/71; PULSE 65; RESP 16; TEMP 36.7; O2SAT 99
[2021-06-20] MEDS: Normal Saline Flush 10 ML SYR IVP ×2 (07:56→14:29)
[2021-06-20 08:09] LABS: Abs Immature Grans 0.03 10^3/uL (0.0-0.06); Absolute Eosinophil Count 0.02 10^3/uL (0.0-0.7); Absolute Lymphocyte Count 1.08 10^3/uL (1.2-3.4); Absolute Monocyte Count 0.54 10^3/uL (0.1-0.8); Absolute Neutrophil Count 0.72 10^3/uL (1.2-6.7); Eosinophils % 0.8; HCT 23.9 % (40.0-50.0); HGB 8.3 g/dL (13.5-17.5); Immature Grans % 1.3; Lymphocytes % 45.2; MCHC 34.7 % (32.0-36.0); MCV 89.2 fL (80-95); MPV 10.5 fL (8.0-11.0); Monocytes % 22.6; Neutrophils % 30.1; Nucleated RBC 0 %; RBC 2.68 10^6/uL (4.36-5.78); RDW 15.2 % (11.8-14.1); RDW-SD 44.4 fL; WBC 2.39 10^3/uL (4.4-10.8)
[2021-06-20 08:38] LABS: Platelet Count 6 10^3/uL (130-400)
[2021-06-20 08:39] LABS: Diff Comment Agrees w/ Instrument; Hypochromasia 1+
[2021-06-20 14:00] VITALS: BP 126/70; PULSE 98; RESP 20; TEMP 36.5; O2SAT 98
[2021-06-20 14:20] VITALS: BP 134/77; PULSE 74; RESP 20; TEMP 36.7; O2SAT 99
[2021-06-24] VITALS (8 sets, daily range): BP systolic 102–120; BP diastolic 63–70; PULSE 68–99; RESP 18–20; TEMP 36.4–36.8; O2SAT 96–99
[2021-06-24] MEDS: Normal Saline Flush 10 ML SYR IVP ×2 (07:54→15:03)
[2021-06-24 08:19] LABS: Abs Immature Grans 0.02 10^3/uL (0.0-0.06); Absolute Lymphocyte Count 1.32 10^3/uL (1.2-3.4); Absolute Monocyte Count 0.43 10^3/uL (0.1-0.8); Absolute Neutrophil Count 0.74 10^3/uL (1.2-6.7); HCT 22.5 % (40.0-50.0); HGB 7.6 g/dL (13.5-17.5); Immature Grans % 0.8; Lymphocytes % 52.6; MCH 29.7 pg (27.0-33.0); MCHC 33.8 % (32.0-36.0); MCV 87.9 fL (80-95); MPV 8.8 fL (8.0-11.0); Monocytes % 17.1; Neutrophils % 29.5; Nucleated RBC 0 %; RBC 2.56 10^6/uL (4.36-5.78); RDW 14.7 % (11.8-14.1); WBC 2.51 10^3/uL (4.4-10.8)
[2021-06-24 08:32] LABS: Diff Comment Diff Reviewed; Platelet Count 6 10^3/uL (130-400); RBC Morphology Normal
[2021-06-27] VITALS (7 sets, daily range): BP systolic 110–145; BP diastolic 62–77; PULSE 75–85; RESP 12–16; TEMP 36.2–36.9; O2SAT 97–100
[2021-06-27] MEDS: Normal Saline Flush 10 ML SYR IVP ×2 (08:03→14:51)
[2021-06-27 08:10] LABS: Abs Immature Grans 0.01 10^3/uL (0.0-0.06); Absolute Lymphocyte Count 1.15 10^3/uL (1.2-3.4); Absolute Monocyte Count 0.37 10^3/uL (0.1-0.8); Absolute Neutrophil Count 0.57 10^3/uL (1.2-6.7); HCT 22.5 % (40.0-50.0); HGB 7.8 g/dL (13.5-17.5); Immature Grans % 0.5; Lymphocytes % 54.8; MCH 30.4 pg (27.0-33.0); MCHC 34.7 % (32.0-36.0); MCV 87.5 fL (80-95); MPV 9.1 fL (8.0-11.0); Monocytes % 17.6; Neutrophils % 27.1; Nucleated RBC 0 %; RBC 2.57 10^6/uL (4.36-5.78); RDW 14.2 % (11.8-14.1); RDW-SD 40.8 fL
[2021-06-27 08:27] LABS: Diff Comment Agrees w/ Instrument; Hypochromasia 2+
[2021-06-27 08:30] LABS: Platelet Count 7 10^3/uL (130-400)
[2021-06-27 12:52] LABS: ALT 22 U/L (16-63); AST 13 U/L (15-37); Albumin 3.7 g/dL (3.4-5.0); Alkaline Phosphatase 86 U/L (46-116); Anion Gap 7.9 mmol/L (3-11); BUN 16 mg/dL (7-18); Bilirubin, Total 0.8 mg/dL (0.2-1.0); CO2 25.1 mmol/L (21.0-32.0); CREATININE 1.1 mg/dL (0.70-1.30); Calcium 7.8 mg/dL (8.5-10.1); Chloride 106 mmol/L (98-107); Glucose 101 mg/dL (74-106); Potassium 4.2 mmol/L (3.5-5.1); Sodium 139 mmol/L (136-145)
[2021-07-01] VITALS (7 sets, daily range): BP systolic 104–122; BP diastolic 63–71; PULSE 58–65; RESP 16–20; TEMP 36.4–36.9; O2SAT 98–100
[2021-07-01] MEDS: Normal Saline Flush 10 ML SYR IVP ×2 (07:58→13:56)
[2021-07-01 08:04] LABS: Abs Immature Grans 0.01 10^3/uL (0.0-0.06); HCT 22.8 % (40.0-50.0); HGB 7.7 g/dL (13.5-17.5); MCH 29.8 pg (27.0-33.0); MCHC 33.8 % (32.0-36.0); MCV 88.4 fL (80-95); MPV 12.6 fL (8.0-11.0); Nucleated RBC 0 %; RBC 2.58 10^6/uL (4.36-5.78); RDW-SD 41.1 fL
[2021-07-01 08:26] LABS: WBC 1.96 10^3/uL (4.4-10.8)
[2021-07-01 08:29] LABS: Bands % 3
[2021-07-01 08:30] LABS: Absolute Lymphocyte Count 1.23 10^3/uL (1.2-3.4); Absolute Monocyte Count 0.24 10^3/uL (0.1-0.8); Absolute Neutrophil Count 0.43 10^3/uL (1.2-6.7); Atypical Lymphocytes % 4; Diff Comment Manual Differential; Metamyelocytes % 2; Myelocytes % 1
[2021-07-01 08:31] LABS: Platelet Count 3 10^3/uL (130-400); RBC Morphology Normal
[2021-07-04] VITALS (7 sets, daily range): BP systolic 102–130; BP diastolic 61–72; PULSE 62–78; RESP 16–17; TEMP 36–36.6; O2SAT 97–99
[2021-07-04] MEDS: Normal Saline Flush 10 ML SYR IVP ×3 (08:11→17:31)
[2021-07-04 08:15] LABS: Abs Immature Grans 0.02 10^3/uL (0.0-0.06); HCT 23.5 % (40.0-50.0); MCH 29.9 pg (27.0-33.0); MCV 87.7 fL (80-95); Nucleated RBC 0 %; RBC 2.68 10^6/uL (4.36-5.78); RDW 13.8 % (11.8-14.1); RDW-SD 41.1 fL; WBC 2.02 10^3/uL (4.4-10.8)
[2021-07-04 08:35] LABS: Absolute Lymphocyte Count 1.01 10^3/uL (1.2-3.4); Absolute Neutrophil Count 0.53 10^3/uL (1.2-6.7); Atypical Lymphocytes % 3; Bands % 1
[2021-07-04 08:36] LABS: Absolute Eosinophil Count 0.02 10^3/uL (0.0-0.7); Diff Comment Manual Differential; Hypochromasia 2+; Metamyelocytes % 2; Myelocytes % 1
[2021-07-04 08:39] LABS: Platelet Count 3 10^3/uL (130-400)
[2021-07-08] MEDS: Normal Saline Flush 10 ML SYR IVP (08:05)
[2021-07-08 08:17] LABS: HCT 24.9 % (40.0-50.0); HGB 8.5 g/dL (13.5-17.5); MCH 29.4 pg (27.0-33.0); MCHC 34.1 % (32.0-36.0); MCV 86.2 fL (80-95); MPV 10.3 fL (8.0-11.0); Nucleated RBC 0 %; RBC 2.89 10^6/uL (4.36-5.78); RDW 13.4 % (11.8-14.1); RDW-SD 39.8 fL
[2021-07-08 08:29] LABS: Absolute Neutrophil Count 0.54 10^3/uL (1.2-6.7); Bands % 5
[2021-07-08 08:30] LABS: Platelet Count 7 10^3/uL (130-400); WBC 1.85 10^3/uL (4.4-10.8)
[2021-07-08 08:31] LABS: Absolute Lymphocyte Count 0.96 10^3/uL (1.2-3.4); Absolute Monocyte Count 0.15 10^3/uL (0.1-0.8); Atypical Lymphocytes % 2; Diff Comment Manual Differential; Other Cells % 11; RBC Morphology Normal
[2021-07-08 14:00] VITALS: BP 112/68; PULSE 99; RESP 20; TEMP 36.4; O2SAT 97
[2021-07-08 14:32] VITALS: BP 109/63; PULSE 77; RESP 20; TEMP 37.2; O2SAT 98
[2021-07-11] VITALS (8 sets, daily range): BP systolic 105–127; BP diastolic 64–77; PULSE 66–76; RESP 16–17; TEMP 36.2–37.2; O2SAT 97–100
[2021-07-11] MEDS: Normal Saline Flush 10 ML SYR IVP ×3 (08:05→13:54)
[2021-07-11 08:42] LABS: Abs Immature Grans 0.02 10^3/uL (0.0-0.06); HGB 7.4 g/dL (13.5-17.5); MCH 29.1 pg (27.0-33.0); MCHC 33.6 % (32.0-36.0); MCV 86.6 fL (80-95); Nucleated RBC 0 %; RBC 2.54 10^6/uL (4.36-5.78); RDW 13.2 % (11.8-14.1); RDW-SD 38.1 fL; WBC 2.12 10^3/uL (4.4-10.8)
[2021-07-11 09:08] LABS: Absolute Neutrophil Count 0.57 10^3/uL (1.2-6.7); Bands % 0; Platelet Count 4 10^3/uL (130-400)
[2021-07-11 09:09] LABS: Absolute Monocyte Count 0.21 10^3/uL (0.1-0.8); Atypical Lymphocytes % 2; Metamyelocytes % 3; Myelocytes % 3
[2021-07-11 09:10] LABS: Diff Comment Manual Differential; Other Cells % 5; RBC Morphology Normal
== END 2021-07-11 23:59 | disposition home or self-care (01) ==
LOC: INF 02:57
PROVIDERS: PCP Internal Medicine; Visit Provider Internal Medicine Hematology & Oncology
DX: C92.00 Acute myeloblastic leukemia, not having achieved remission (principal); Z45.2 Encounter for adjustment and management of vascular access device
CPT/HCPCS: 36430; 36591; 80053; 86850; 86900; 86901; 86920; P9073; 81050; 84100; 84550; 84560; 85025; P9016; P9035

== ENCOUNTER → 2021-07-18 12:20 | Outpatient (CLI) | payer MEDICARE, SELFPAY ==
--- NOTE | 2021-07-18 09:40 | DI.CT_ITS ---
Exam(s) CT HEAD WO EXAM: CT HEAD WO CLINICAL HISTORY: LEUKEMIA C92.00 HEADACHE R51.9. TECHNIQUE: Imaging Protocol: Axial computed tomography images with coronal and sagittal reformatted images were created and reviewed COMPARISON: CT HEAD WITHOUT CONTRAST from 08/18/2016 FINDINGS: Ventricles and Extra axial spaces: Please see below. Hemorrhage: There are bilateral subdural hematomas. They show evidence of chronic and acute hemorrhag e with high density areas bilaterally. The left subdural lies adjacent to the temporal lobe. There i s no significant mass effect. It measures 4 mm in thickness. The right subdural lies along the in con vexity. The largest thickness is at the apex and measures 2.8 cm. There is a face mint of the adjacen t sulci and also mass effect on the atria and occipital horn of the right lateral ventricle. There do es appear to be a 2-3 mm leftward shift of the midline. Cerebral parenchyma: No evidence of an acute territorial infarct. Areas of decreased attenuation are seen in the white matter consistent with small vessel ischemic disease. Midline shift: Please see above. Brainstem/Cerebellum: Normal. Calvarium: Normal. Visualized Paranasal sinuses/Mastoids: Mucous retention cysts or polyps are seen in the maxillary sin uses. The remaining visualized paranasal sinuses and mastoid air cells are clear. Soft Tissues: Unchanged skin thickening is seen overlying the left occipital bone. This is been stab le since 08/18/2016. IMPRESSION: 1. Bilateral subdural hematomas. The subdural show evidence of chronic and acute hemorrhage. The ri ght subdural is the largest and exhibits a mass effect on the adjacent sulci and the right lateral ve ntricle. There is a 2-3 mm leftward shift of the midline. 2. Results of this exam have been verbally communicated with provider. RADIATION DOSE DELIVERED: 954.4mGy.cm Total DLP DATA REPOSITORY: All CT scans at this facility are submitted to the National Radiology Data Registry (NRDR) Dose Index Registry (DIR) with the [employer] ([employer]). RADIATION OPTIMIZATION: All CT scans at this facility use at least one of these dose optimization te chniques: automated exposure control; mA and/or kV adjustment per patient size (includes targeted exa ms where dose is matched to clinical indication); or iterative reconstruction.
== END ==
PROVIDERS: PCP Internal Medicine; Visit Provider Internal Medicine Hematology & Oncology
DX: R51.9 Headache, unspecified (principal); C92.00 Acute myeloblastic leukemia, not having achieved remission; I62.01 Nontraumatic acute subdural hemorrhage; I62.03 Nontraumatic chronic subdural hemorrhage
CPT/HCPCS: 36591; 80053; 70450; 85025

== ENCOUNTER 2021-08-09 08:00 | Outpatient (RCR) | payer MEDICARE, SELFPAY ==
[2021-07-12 00:12] VITALS: BP 121/73; PULSE 72; RESP 17; TEMP 36.2
[2021-07-15] VITALS (7 sets, daily range): BP systolic 103–116; BP diastolic 62–74; PULSE 63–74; RESP 14–17; TEMP 36.5–37; O2SAT 97–99
[2021-07-15] MEDS: Normal Saline Flush 10 ML SYR IVP (08:13)
[2021-07-15 08:19] LABS: Abs Immature Grans 0.01 10^3/uL (0.0-0.06); Absolute Eosinophil Count 0.01 10^3/uL (0.0-0.7); Absolute Lymphocyte Count 0.94 10^3/uL (1.2-3.4); Absolute Monocyte Count 0.36 10^3/uL (0.1-0.8); Absolute Neutrophil Count 0.79 10^3/uL (1.2-6.7); Eosinophils % 0.5; HCT 23.7 % (40.0-50.0); Immature Grans % 0.5; Lymphocytes % 44.5; MCH 29.6 pg (27.0-33.0); MCHC 34.2 % (32.0-36.0); MCV 86.5 fL (80-95); MPV 10.6 fL (8.0-11.0); Monocytes % 17.1; Neutrophils % 37.4; RBC 2.74 10^6/uL (4.36-5.78); RDW-SD 39.3 fL; WBC 2.11 10^3/uL (4.4-10.8)
[2021-07-15 08:20] LABS: Nucleated RBC 0 %; RDW 13.2 % (11.8-14.1)
[2021-07-15 08:43] LABS: Diff Comment Diff Reviewed; RBC Morphology Normal
[2021-07-15 08:56] LABS: HGB 7.9 g/dL (13.5-17.5)
[2021-07-15 08:57] LABS: Platelet Count 3 10^3/uL (130-400)
[2021-07-18] MEDS: Normal Saline Flush 10 ML SYR IVP (07:27)
[2021-07-18 07:40] LABS: Abs Immature Grans 0.01 10^3/uL (0.0-0.06); Absolute Lymphocyte Count 1.11 10^3/uL (1.2-3.4); Absolute Monocyte Count 0.41 10^3/uL (0.1-0.8); Absolute Neutrophil Count 0.68 10^3/uL (1.2-6.7); HCT 23.9 % (40.0-50.0); HGB 8.2 g/dL (13.5-17.5); Immature Grans % 0.5; Lymphocytes % 50.2; MCH 29.5 pg (27.0-33.0); MCHC 34.3 % (32.0-36.0); MPV 11.1 fL (8.0-11.0); Monocytes % 18.6; Neutrophils % 30.7; Nucleated RBC 0 %; RBC 2.78 10^6/uL (4.36-5.78); RDW 12.8 % (11.8-14.1); RDW-SD 38.5 fL; WBC 2.21 10^3/uL (4.4-10.8)
[2021-07-18 07:50] LABS: ALT 19 U/L (16-63); AST 11 U/L (15-37); Albumin 3.4 g/dL (3.4-5.0); Alkaline Phosphatase 81 U/L (46-116); BUN 15 mg/dL (7-18); Bilirubin, Total 1.1 mg/dL (0.2-1.0); CREATININE 1.2 mg/dL (0.70-1.30); Calcium 7.6 mg/dL (8.5-10.1); Chloride 104 mmol/L (98-107); Estimated GFR 59.68 (mL/min/1.73m2); Glucose 142 mg/dL (74-106); Potassium 4.1 mmol/L (3.5-5.1); Sodium 138 mmol/L (136-145); Total Protein 6.6 g/dL (6.4-8.2)
[2021-07-18 08:15] LABS: Platelet Count 2 10^3/uL (130-400)
[2021-07-24 08:36] VITALS: BP 108/62; PULSE 63; RESP 14; TEMP 36.9; O2SAT 98
[2021-07-24 08:37] LABS: HCT 25.5 % (40.0-50.0); HGB 8.5 g/dL (13.5-17.5); MCH 28.8 pg (27.0-33.0); MCHC 33.3 % (32.0-36.0); MCV 86.4 fL (80-95); MPV 9.7 fL (8.0-11.0); Nucleated RBC 0 %; RBC 2.95 10^6/uL (4.36-5.78); RDW 12.8 % (11.8-14.1); RDW-SD 39.3 fL
[2021-07-24] MEDS: Normal Saline Flush 10 ML SYR IVP ×2 (08:37→14:26)
[2021-07-24 08:52] LABS: Absolute Lymphocyte Count 0.91 10^3/uL (1.2-3.4); Absolute Monocyte Count 0.08 10^3/uL (0.1-0.8); Atypical Lymphocytes % 5; Bands % 1; Other Cells % 9
[2021-07-24 08:53] LABS: Platelet Count 44 10^3/uL (130-400)
[2021-07-24 08:55] LABS: Diff Comment Manual Differential
[2021-07-24 08:57] LABS: Absolute Neutrophil Count 0.39 10^3/uL (1.2-6.7); WBC 1.51 10^3/uL (4.4-10.8)
[2021-07-24 08:58] LABS: RBC Morphology Normal
[2021-07-24 14:20] VITALS: BP 113/71; PULSE 56; RESP 17; TEMP 36.3; O2SAT 99
[2021-07-24 14:46] VITALS: BP 118/71; PULSE 62; RESP 17; TEMP 36.6; O2SAT 100
[2021-07-26] MEDS: Normal Saline Flush 10 ML SYR IVP (07:58)
[2021-07-26 08:09] LABS: Abs Immature Grans 0.02 10^3/uL (0.0-0.06); HGB 8.6 g/dL (13.5-17.5); MCH 29.3 pg (27.0-33.0); MCHC 34.4 % (32.0-36.0); MPV 9.4 fL (8.0-11.0); RBC 2.94 10^6/uL (4.36-5.78); RDW 12.4 % (11.8-14.1); RDW-SD 37.1 fL
[2021-07-26 08:21] LABS: Platelet Count 25 10^3/uL (130-400)
[2021-07-26 08:37] LABS: Absolute Lymphocyte Count 0.95 10^3/uL (1.2-3.4); Absolute Monocyte Count 0.22 10^3/uL (0.1-0.8); Atypical Lymphocytes % 5; Bands % 1; Other Cells % 4
[2021-07-26 08:38] LABS: Diff Comment Manual Differential; RBC Morphology Normal
[2021-07-26 08:46] LABS: Absolute Neutrophil Count 0.46 10^3/uL (1.2-6.7)
[2021-07-26 14:15] VITALS: BP 107/61; PULSE 67; RESP 17; TEMP 36.3; O2SAT 96
[2021-07-26 15:00] VITALS: BP 116/71; PULSE 64; RESP 17; TEMP 36.5; O2SAT 97
[2021-07-29] MEDS: Normal Saline Flush 10 ML SYR IVP (07:55)
[2021-07-29 08:29] LABS: Abs Immature Grans 0.02 10^3/uL (0.0-0.06); Absolute Lymphocyte Count 0.95 10^3/uL (1.2-3.4); Absolute Monocyte Count 0.35 10^3/uL (0.1-0.8); HCT 23.8 % (40.0-50.0); HGB 8.1 g/dL (13.5-17.5); Immature Grans % 1.2; Lymphocytes % 57.2; MCH 29.1 pg (27.0-33.0); MCV 85.6 fL (80-95); MPV 11.2 fL (8.0-11.0); Monocytes % 21.1; Neutrophils % 20.5; RBC 2.78 10^6/uL (4.36-5.78); RDW 12.2 % (11.8-14.1); RDW-SD 37.4 fL
[2021-07-29 08:45] LABS: WBC 1.66 10^3/uL (4.4-10.8)
[2021-07-29 08:46] LABS: Absolute Neutrophil Count 0.34 10^3/uL (1.2-6.7); Platelet Count 7 10^3/uL (130-400)
[2021-07-29 08:47] LABS: Diff Comment Agrees w/ Instrument; RBC Morphology Normal
[2021-07-29 14:01] VITALS: BP 116/75; PULSE 56; RESP 17; TEMP 36.4; O2SAT 99
[2021-07-29 14:20] VITALS: BP 100/69; PULSE 65; RESP 17; TEMP 36.7; O2SAT 99
[2021-07-31] VITALS (8 sets, daily range): BP systolic 99–129; BP diastolic 59–67; PULSE 57–71; RESP 16; TEMP 35.1–35.9; O2SAT 98–99
[2021-07-31] MEDS: Normal Saline Flush 10 ML SYR IVP ×2 (07:52→14:02)
[2021-07-31 08:05] LABS: Abs Immature Grans 0.02 10^3/uL (0.0-0.06); HCT 22.8 % (40.0-50.0); HGB 7.8 g/dL (13.5-17.5); MCH 29.3 pg (27.0-33.0); MCHC 34.2 % (32.0-36.0); MCV 85.7 fL (80-95); MPV 9.6 fL (8.0-11.0); RBC 2.66 10^6/uL (4.36-5.78); RDW 12.2 % (11.8-14.1); RDW-SD 37.1 fL
[2021-07-31 08:40] LABS: Absolute Lymphocyte Count 1.02 10^3/uL (1.2-3.4); Absolute Monocyte Count 0.26 10^3/uL (0.1-0.8); Atypical Lymphocytes % 0; Bands % 0
[2021-07-31 08:41] LABS: Platelet Count 18 10^3/uL (130-400)
[2021-07-31 08:42] LABS: Diff Comment Manual Differential; RBC Morphology Normal
[2021-08-02] VITALS (9 sets, daily range): BP systolic 90–112; BP diastolic 53–71; PULSE 52–61; RESP 17–18; TEMP 36.2–36.4; O2SAT 98–99
[2021-08-02] MEDS: Normal Saline Flush 10 ML SYR IVP (08:02)
[2021-08-02 08:16] LABS: Abs Immature Grans 0.01 10^3/uL (0.0-0.06); Absolute Lymphocyte Count 0.81 10^3/uL (1.2-3.4); Absolute Monocyte Count 0.32 10^3/uL (0.1-0.8); HCT 23.1 % (40.0-50.0); HGB 7.8 g/dL (13.5-17.5); Immature Grans % 0.7; Lymphocytes % 56.3; MCH 29.1 pg (27.0-33.0); MCHC 33.8 % (32.0-36.0); MCV 86.2 fL (80-95); MPV 9.8 fL (8.0-11.0); Monocytes % 22.2; Neutrophils % 20.8; RBC 2.68 10^6/uL (4.36-5.78); RDW 12.9 % (11.8-14.1); RDW-SD 39.4 fL
[2021-08-02 08:22] LABS: WBC 1.44 10^3/uL (4.4-10.8)
[2021-08-02 08:28] LABS: ALT 23 U/L (16-63); AST 13 U/L (15-37); Albumin 3.5 g/dL (3.4-5.0); Alkaline Phosphatase 82 U/L (46-116); Anion Gap 3.7 mmol/L (3-11); BUN 19 mg/dL (7-18); Bilirubin, Total 1.2 mg/dL (0.2-1.0); CO2 27.3 mmol/L (21.0-32.0); CREATININE 1.2 mg/dL (0.70-1.30); Calcium 7.7 mg/dL (8.5-10.1); Chloride 107 mmol/L (98-107); Diff Comment Diff Reviewed; Estimated GFR 59.68 (mL/min/1.73m2); Glucose 140 mg/dL (74-106); Platelet Count 17 10^3/uL (130-400); Potassium 4.1 mmol/L (3.5-5.1); RBC Morphology Normal; Sodium 138 mmol/L (136-145); Total Protein 6.6 g/dL (6.4-8.2)
[2021-08-05] MEDS: Normal Saline Flush 10 ML SYR IVP (07:58)
[2021-08-05 08:19] LABS: Abs Immature Grans 0.03 10^3/uL (0.0-0.06); Absolute Lymphocyte Count 0.77 10^3/uL (1.2-3.4); Absolute Monocyte Count 0.36 10^3/uL (0.1-0.8); HCT 24.3 % (40.0-50.0); HGB 8.3 g/dL (13.5-17.5); Immature Grans % 2.1; MCHC 34.2 % (32.0-36.0); MCV 87.7 fL (80-95); MPV 10.3 fL (8.0-11.0); Monocytes % 25.7; Neutrophils % 17.2; RBC 2.77 10^6/uL (4.36-5.78); RDW 13.3 % (11.8-14.1); RDW-SD 42.2 fL
[2021-08-05 08:32] LABS: Absolute Neutrophil Count 0.24 10^3/uL (1.2-6.7)
[2021-08-05 08:33] LABS: Platelet Count 9 10^3/uL (130-400)
[2021-08-05 14:00] VITALS: BP 147/75; PULSE 80; RESP 18; TEMP 36.2; O2SAT 98
[2021-08-06 07:39] LABS: Absolute Neutrophil Count 0.43 10^3/uL (1.2-6.7)
[2021-08-07] MEDS: Normal Saline Flush 10 ML SYR IVP (08:22)
[2021-08-07 08:25] LABS: Abs Immature Grans 0.01 10^3/uL (0.0-0.06); Absolute Lymphocyte Count 0.71 10^3/uL (1.2-3.4); Absolute Monocyte Count 0.31 10^3/uL (0.1-0.8); HCT 23.7 % (40.0-50.0); HGB 8.1 g/dL (13.5-17.5); Immature Grans % 0.8; Lymphocytes % 53.4; MCH 29.8 pg (27.0-33.0); MCHC 34.2 % (32.0-36.0); MCV 87.1 fL (80-95); MPV 10.2 fL (8.0-11.0); Monocytes % 23.3; Neutrophils % 22.5; RBC 2.72 10^6/uL (4.36-5.78); RDW 13.2 % (11.8-14.1); RDW-SD 41.1 fL
[2021-08-07 08:31] LABS: WBC 1.33 10^3/uL (4.4-10.8)
[2021-08-07 08:32] LABS: Platelet Count 15 10^3/uL (130-400)
[2021-08-07 08:34] LABS: Diff Comment Diff Reviewed; RBC Morphology Normal
[2021-08-07 14:02] VITALS: BP 141/76; PULSE 59; RESP 18; TEMP 36.1; O2SAT 100
[2021-08-07 14:15] VITALS: BP 108/65; PULSE 59; RESP 17; TEMP 36.5; O2SAT 100
[2021-08-07 14:25] VITALS: BP 104/60; PULSE 60; RESP 17; TEMP 36.3; O2SAT 99
[2021-08-09] VITALS (9 sets, daily range): BP systolic 104–128; BP diastolic 59–76; PULSE 52–68; RESP 16–20; TEMP 36.2–36.4; O2SAT 97–99
[2021-08-09] MEDS: Normal Saline Flush 10 ML SYR IVP (07:50)
[2021-08-09 07:57] LABS: Abs Immature Grans 0.01 10^3/uL (0.0-0.06); Absolute Eosinophil Count 0.01 10^3/uL (0.0-0.7); Absolute Lymphocyte Count 0.71 10^3/uL (1.2-3.4); Absolute Monocyte Count 0.33 10^3/uL (0.1-0.8); Eosinophils % 0.7; HCT 22.9 % (40.0-50.0); HGB 7.8 g/dL (13.5-17.5); Immature Grans % 0.7; Lymphocytes % 51.8; MCH 29.7 pg (27.0-33.0); MCHC 34.1 % (32.0-36.0); MCV 87 fL (80-95); MPV 10.3 fL (8.0-11.0); Monocytes % 24.1; Neutrophils % 22.7; RBC 2.63 10^6/uL (4.36-5.78); RDW-SD 40.5 fL
[2021-08-09 08:15] LABS: Platelet Count 14 10^3/uL (130-400); WBC 1.37 10^3/uL (4.4-10.8)
[2021-08-09 08:16] LABS: Absolute Neutrophil Count 0.31 10^3/uL (1.2-6.7); Diff Comment Diff Reviewed; RBC Morphology Normal
== END 2021-08-10 23:59 | disposition home or self-care (01) ==
LOC: INF 08:00
PROVIDERS: PCP Internal Medicine; Visit Provider Internal Medicine Hematology & Oncology
DX: C92.00 Acute myeloblastic leukemia, not having achieved remission (principal); Z45.2 Encounter for adjustment and management of vascular access device
CPT/HCPCS: 36430; 36591; 80053; 86850; 86900; 86901; 86920; 96523; P9073; 85025; 86644; P9016; P9035

== ENCOUNTER 2021-09-09 00:47 | Outpatient (RCR) | payer MEDICARE, SELFPAY ==
[2021-08-11 00:05] VITALS: BP 128/76; PULSE 54; RESP 20; TEMP 36.3
[2021-08-12] MEDS: Normal Saline Flush 10 ML SYR IVP ×2 (07:53→12:18)
[2021-08-12 08:15] LABS: Abs Immature Grans 0.02 10^3/uL (0.0-0.06); Absolute Lymphocyte Count 0.65 10^3/uL (1.2-3.4); HCT 22.4 % (40.0-50.0); HGB 7.5 g/dL (13.5-17.5); Immature Grans % 1.5; Lymphocytes % 47.4; MCH 29.2 pg (27.0-33.0); MCHC 33.5 % (32.0-36.0); MCV 87 fL (80-95); MPV 9.8 fL (8.0-11.0); Monocytes % 29.2; Neutrophils % 21.9; RBC 2.57 10^6/uL (4.36-5.78); RDW-SD 40.6 fL
[2021-08-12 08:22] LABS: WBC 1.37 10^3/uL (4.4-10.8)
[2021-08-12 08:33] LABS: Diff Comment Diff Reviewed; Platelet Count 8 10^3/uL (130-400); RBC Morphology Normal
[2021-08-12 12:09] VITALS: BP 125/72; PULSE 76; RESP 20; TEMP 36; O2SAT 97
[2021-08-12 12:24] VITALS: BP 103/61; PULSE 66; RESP 18; TEMP 36.6; O2SAT 98
[2021-08-12 12:54] VITALS: BP 110/56; PULSE 67; RESP 16; TEMP 36.6; O2SAT 97
[2021-08-12 13:50] VITALS: BP 113/66; PULSE 57; RESP 16; TEMP 36.9; O2SAT 98
[2021-08-12 14:01] VITALS: BP 110/57; PULSE 67; RESP 16; TEMP 36.7; O2SAT 98
[2021-08-12 14:27] VITALS: BP 152/73; PULSE 68; RESP 16; TEMP 36.6; O2SAT 98
[2021-08-14] MEDS: Normal Saline Flush 10 ML SYR IVP ×2 (07:59→14:28)
[2021-08-14 08:07] LABS: Abs Immature Grans 0.01 10^3/uL (0.0-0.06); Absolute Eosinophil Count 0.01 10^3/uL (0.0-0.7); Absolute Lymphocyte Count 0.73 10^3/uL (1.2-3.4); Absolute Monocyte Count 0.46 10^3/uL (0.1-0.8); Eosinophils % 0.6; HCT 24.4 % (40.0-50.0); HGB 8.4 g/dL (13.5-17.5); Immature Grans % 0.6; Lymphocytes % 46.2; MCH 29.9 pg (27.0-33.0); MCHC 34.4 % (32.0-36.0); MCV 87 fL (80-95); MPV 10.2 fL (8.0-11.0); Monocytes % 29.1; Neutrophils % 23.5; RBC 2.81 10^6/uL (4.36-5.78); RDW 12.8 % (11.8-14.1); RDW-SD 40.7 fL
[2021-08-14 08:24] LABS: ALT 21 U/L (16-63); AST 11 U/L (15-37); Albumin 3.5 g/dL (3.4-5.0); Alkaline Phosphatase 82 U/L (46-116); Anion Gap 5.9 mmol/L (3-11); BUN 13 mg/dL (7-18); Bilirubin, Total 1.6 mg/dL (0.2-1.0); CO2 27.1 mmol/L (21.0-32.0); CREATININE 1.2 mg/dL (0.70-1.30); Calcium 7.8 mg/dL (8.5-10.1); Chloride 107 mmol/L (98-107); Estimated GFR 59.68 (mL/min/1.73m2); Glucose 143 mg/dL (74-106); Potassium 4.1 mmol/L (3.5-5.1); Sodium 140 mmol/L (136-145); Total Protein 6.7 g/dL (6.4-8.2)
[2021-08-14 08:36] LABS: Diff Comment Agrees w/ Instrument; Hypochromasia 2+
[2021-08-14 08:44] LABS: Platelet Count 11 10^3/uL (130-400); WBC 1.58 10^3/uL (4.4-10.8)
[2021-08-14 08:45] LABS: Absolute Neutrophil Count 0.37 10^3/uL (1.2-6.7)
[2021-08-14 13:59] VITALS: BP 120/70; PULSE 64; RESP 17; TEMP 36.7; O2SAT 99
[2021-08-14 14:19] VITALS: BP 113/68; PULSE 67; RESP 16; TEMP 36.7; O2SAT 98
[2021-08-16] MEDS: Normal Saline Flush 10 ML SYR IVP ×2 (07:55→13:45)
[2021-08-16 08:02] LABS: Abs Immature Grans 0.02 10^3/uL (0.0-0.06); HCT 24.1 % (40.0-50.0); HGB 8.2 g/dL (13.5-17.5); Immature Grans % 1.4; Lymphocytes % 47.6; MCH 29.5 pg (27.0-33.0); MCV 87 fL (80-95); MPV 11.8 fL (8.0-11.0); Monocytes % 27.2; Neutrophils % 23.8; RBC 2.78 10^6/uL (4.36-5.78); RDW 12.5 % (11.8-14.1); RDW-SD 39.4 fL
[2021-08-16 08:29] LABS: Absolute Neutrophil Count 0.35 10^3/uL (1.2-6.7); WBC 1.47 10^3/uL (4.4-10.8)
[2021-08-16 08:30] LABS: Platelet Count 7 10^3/uL (130-400)
[2021-08-16 08:31] LABS: Diff Comment Agrees w/ Instrument; Hypochromasia 2+; Polychromasia Present
[2021-08-16 13:46] VITALS: BP 117/69; PULSE 81; RESP 18; TEMP 36.5; O2SAT 97
[2021-08-16 14:15] VITALS: BP 106/62; PULSE 63; RESP 18; TEMP 36.5; O2SAT 98
[2021-08-16 14:38] VITALS: BP 110/62; PULSE 66; RESP 18; TEMP 36.5; O2SAT 98
[2021-08-19] VITALS (7 sets, daily range): BP systolic 107–126; BP diastolic 61–74; PULSE 60–74; RESP 12–14; TEMP 36.4–36.9; O2SAT 97–99
[2021-08-19 08:28] LABS: Abs Immature Grans 0.01 10^3/uL (0.0-0.06); Absolute Eosinophil Count 0.02 10^3/uL (0.0-0.7); Absolute Lymphocyte Count 0.69 10^3/uL (1.2-3.4); Absolute Monocyte Count 0.43 10^3/uL (0.1-0.8); Eosinophils % 1.4; HCT 21.4 % (40.0-50.0); HGB 7.2 g/dL (13.5-17.5); Immature Grans % 0.7; Lymphocytes % 47.6; MCH 29.1 pg (27.0-33.0); MCHC 33.6 % (32.0-36.0); MCV 87 fL (80-95); MPV 9.9 fL (8.0-11.0); Monocytes % 29.7; Neutrophils % 20.6; RBC 2.47 10^6/uL (4.36-5.78); RDW 12.2 % (11.8-14.1); RDW-SD 38.8 fL
[2021-08-19 08:57] LABS: Diff Comment Diff Reviewed; Platelet Count 13 10^3/uL (130-400); RBC Morphology Normal; WBC 1.45 10^3/uL (4.4-10.8)
[2021-08-19] MEDS: Normal Saline Flush 10 ML SYR IVP (10:05)
[2021-08-21] VITALS (7 sets, daily range): BP systolic 99–144; BP diastolic 58–81; PULSE 58–66; RESP 18–20; TEMP 36.2–36.4; O2SAT 97–99
[2021-08-21 08:03] LABS: Abs Immature Grans 0.02 10^3/uL (0.0-0.06); Absolute Lymphocyte Count 0.66 10^3/uL (1.2-3.4); HCT 22.5 % (40.0-50.0); HGB 7.7 g/dL (13.5-17.5); Immature Grans % 1.5; Lymphocytes % 49.3; MCHC 34.2 % (32.0-36.0); MCV 88 fL (80-95); MPV 9.1 fL (8.0-11.0); Monocytes % 29.9; Neutrophils % 19.3; RBC 2.57 10^6/uL (4.36-5.78); RDW 12.7 % (11.8-14.1); RDW-SD 40.1 fL
[2021-08-21] MEDS: Normal Saline Flush 10 ML SYR IVP (08:33)
[2021-08-21 08:46] LABS: Diff Comment Agrees w/ Instrument; Hypochromasia 2+
[2021-08-21 08:47] LABS: Absolute Neutrophil Count 0.26 10^3/uL (1.2-6.7); Platelet Count 14 10^3/uL (130-400); WBC 1.34 10^3/uL (4.4-10.8)
[2021-08-23 07:55] LABS: Absolute Lymphocyte Count 0.69 10^3/uL (1.2-3.4); Absolute Monocyte Count 0.33 10^3/uL (0.1-0.8); HCT 23.9 % (40.0-50.0); HGB 8.2 g/dL (13.5-17.5); Lymphocytes % 52.3; MCH 29.4 pg (27.0-33.0); MCHC 34.3 % (32.0-36.0); MCV 86 fL (80-95); MPV 11.4 fL (8.0-11.0); Neutrophils % 22.7; RBC 2.79 10^6/uL (4.36-5.78); RDW 12.8 % (11.8-14.1); RDW-SD 39.6 fL
[2021-08-23] MEDS: Normal Saline Flush 10 ML SYR IVP ×2 (07:55→11:19)
[2021-08-23 08:07] LABS: Diff Comment Diff Reviewed; RBC Morphology Normal
[2021-08-23 08:13] LABS: Platelet Count 10 10^3/uL (130-400); WBC 1.32 10^3/uL (4.4-10.8)
[2021-08-23 09:59] VITALS: BP 128/76; PULSE 66; RESP 16; TEMP 36.6; O2SAT 97
[2021-08-23 10:39] VITALS: BP 107/65; PULSE 60; RESP 16; TEMP 36.9; O2SAT 97
[2021-08-23 10:46] VITALS: BP 107/65; PULSE 60; RESP 16; TEMP 36.9; O2SAT 97
[2021-08-23 11:10] VITALS: BP 114/71; PULSE 58; RESP 16; TEMP 36.4; O2SAT 97
[2021-08-26] MEDS: Normal Saline Flush 10 ML SYR IVP ×2 (08:00→14:12)
[2021-08-26 08:17] LABS: HCT 23.3 % (40.0-50.0); HGB 8.1 g/dL (13.5-17.5); MCH 30.1 pg (27.0-33.0); MCHC 34.8 % (32.0-36.0); MCV 87 fL (80-95); MPV 10.5 fL (8.0-11.0); RBC 2.69 10^6/uL (4.36-5.78); RDW 12.4 % (11.8-14.1); RDW-SD 38.9 fL
[2021-08-26 08:25] LABS: WBC 1.32 10^3/uL (4.4-10.8)
[2021-08-26 08:34] LABS: Absolute Eosinophil Count 0.03 10^3/uL (0.0-0.7); Absolute Lymphocyte Count 0.79 10^3/uL (1.2-3.4); Absolute Monocyte Count 0.09 10^3/uL (0.1-0.8); Absolute Neutrophil Count 0.34 10^3/uL (1.2-6.7); Atypical Lymphocytes % 1; Bands % 2; Diff Comment Manual Differential; Other Cells % 5; RBC Morphology Normal
[2021-08-26 08:35] LABS: Platelet Count 12 10^3/uL (130-400)
[2021-08-26 13:57] VITALS: BP 130/76; PULSE 63; RESP 20; TEMP 36.6; O2SAT 99
[2021-08-26 14:20] VITALS: BP 111/65; PULSE 64; RESP 20; TEMP 36.7; O2SAT 97
[2021-08-28] VITALS (7 sets, daily range): BP systolic 115–128; BP diastolic 65–80; PULSE 55–64; RESP 18; TEMP 36.3–36.8; O2SAT 97–99
[2021-08-28] MEDS: Normal Saline Flush 10 ML SYR IVP ×2 (07:56→11:59)
[2021-08-28 08:06] LABS: Abs Immature Grans 0.02 10^3/uL (0.0-0.06); HCT 22.4 % (40.0-50.0); HGB 7.6 g/dL (13.5-17.5); MCH 29.2 pg (27.0-33.0); MCHC 33.9 % (32.0-36.0); MCV 86 fL (80-95); MPV 9.9 fL (8.0-11.0); RDW 12.2 % (11.8-14.1); RDW-SD 38.5 fL
[2021-08-28 08:18] LABS: ALT 21 U/L (16-63); AST 15 U/L (15-37); Albumin 3.4 g/dL (3.4-5.0); Alkaline Phosphatase 89 U/L (46-116); Anion Gap 7.4 mmol/L (3-11); BUN 14 mg/dL (7-18); Bilirubin, Total 0.7 mg/dL (0.2-1.0); CO2 26.6 mmol/L (21.0-32.0); CREATININE 1.1 mg/dL (0.70-1.30); Calcium 7.8 mg/dL (8.5-10.1); Chloride 106 mmol/L (98-107); Glucose 131 mg/dL (74-106); Potassium 4.1 mmol/L (3.5-5.1); Sodium 140 mmol/L (136-145); Total Protein 6.7 g/dL (6.4-8.2)
[2021-08-28 08:37] LABS: Absolute Lymphocyte Count 0.81 10^3/uL (1.2-3.4); Absolute Monocyte Count 0.19 10^3/uL (0.1-0.8); Bands % 1; Diff Comment Manual Differential; RBC Morphology Normal
[2021-08-28 08:38] LABS: Absolute Eosinophil Count 0.06 10^3/uL (0.0-0.7); Metamyelocytes % 2
[2021-08-28 08:40] LABS: WBC 1.45 10^3/uL (4.4-10.8)
[2021-08-28 08:41] LABS: Absolute Neutrophil Count 0.36 10^3/uL (1.2-6.7); Platelet Count 9 10^3/uL (130-400)
[2021-08-30 08:07] LABS: Abs Immature Grans 0.01 10^3/uL (0.0-0.06); Absolute Monocyte Count 0.53 10^3/uL (0.1-0.8); HCT 24.6 % (40.0-50.0); HGB 8.4 g/dL (13.5-17.5); Immature Grans % 0.7; Lymphocytes % 45.8; MCH 29.2 pg (27.0-33.0); MCHC 34.1 % (32.0-36.0); MCV 85 fL (80-95); MPV 11.3 fL (8.0-11.0); Monocytes % 34.6; Neutrophils % 18.9; RBC 2.88 10^6/uL (4.36-5.78); RDW 12.3 % (11.8-14.1); RDW-SD 38.1 fL
[2021-08-30] MEDS: Normal Saline Flush 10 ML SYR IVP (08:14)
[2021-08-30 08:18] LABS: WBC 1.53 10^3/uL (4.4-10.8)
[2021-08-30 08:19] LABS: Absolute Neutrophil Count 0.29 10^3/uL (1.2-6.7); Platelet Count 7 10^3/uL (130-400)
[2021-08-30 08:24] LABS: Diff Comment Agrees w/ Instrument; RBC Morphology Normal
[2021-08-30 08:57] VITALS: BP 104/62; PULSE 57; RESP 17; TEMP 36.6; O2SAT 98
[2021-08-30 09:19] VITALS: BP 123/65; PULSE 64; RESP 16; TEMP 36.5; O2SAT 99
[2021-08-30 09:28] VITALS: BP 123/65; PULSE 64; RESP 16; TEMP 36.5; O2SAT 99
[2021-08-30 09:51] VITALS: BP 107/62; PULSE 61; RESP 16; TEMP 36.5; O2SAT 97
[2021-09-02] VITALS (7 sets, daily range): BP systolic 108–152; BP diastolic 65–78; PULSE 62–86; RESP 16–20; TEMP 36.5–36.7; O2SAT 97–99
[2021-09-02] MEDS: Normal Saline Flush 10 ML SYR IVP ×2 (07:55→12:14)
[2021-09-02 08:08] LABS: Abs Immature Grans 0.02 10^3/uL (0.0-0.06); Absolute Lymphocyte Count 0.67 10^3/uL (1.2-3.4); Absolute Monocyte Count 0.37 10^3/uL (0.1-0.8); HCT 22.6 % (40.0-50.0); HGB 7.8 g/dL (13.5-17.5); Immature Grans % 1.6; Lymphocytes % 52.8; MCH 29.4 pg (27.0-33.0); MCHC 34.5 % (32.0-36.0); MCV 85 fL (80-95); MPV 13.1 fL (8.0-11.0); Monocytes % 29.1; Neutrophils % 16.5; RBC 2.65 10^6/uL (4.36-5.78)
[2021-09-02 08:13] LABS: Absolute Neutrophil Count 0.21 10^3/uL (1.2-6.7)
[2021-09-02 08:14] LABS: Platelet Count 2 10^3/uL (130-400)
[2021-09-02 08:15] LABS: WBC 1.27 10^3/uL (4.4-10.8)
[2021-09-02 08:16] LABS: Diff Comment Diff Reviewed; RBC Morphology Normal
[2021-09-04] MEDS: Normal Saline Flush 10 ML SYR IVP ×2 (07:58→13:06)
[2021-09-04 08:06] LABS: Abs Immature Grans 0.01 10^3/uL (0.0-0.06); Absolute Eosinophil Count 0.01 10^3/uL (0.0-0.7); Absolute Lymphocyte Count 0.72 10^3/uL (1.2-3.4); Absolute Monocyte Count 0.44 10^3/uL (0.1-0.8); Eosinophils % 0.7; HCT 23.8 % (40.0-50.0); HGB 8.1 g/dL (13.5-17.5); Immature Grans % 0.7; Lymphocytes % 52.2; MCV 85 fL (80-95); MPV 10.6 fL (8.0-11.0); Monocytes % 31.9; Neutrophils % 14.5; RBC 2.79 10^6/uL (4.36-5.78); RDW 12.1 % (11.8-14.1); RDW-SD 37.7 fL
[2021-09-04 08:31] LABS: Diff Comment Agrees w/ Instrument; Hypochromasia 2+
[2021-09-04 08:35] LABS: Platelet Count 7 10^3/uL (130-400); WBC 1.38 10^3/uL (4.4-10.8)
[2021-09-04 12:55] VITALS: BP 103/71; PULSE 81; RESP 18; TEMP 36.6; O2SAT 99
[2021-09-04 13:20] VITALS: BP 117/69; PULSE 68; RESP 17; TEMP 36.7; O2SAT 98
[2021-09-06] VITALS (9 sets, daily range): BP systolic 107–130; BP diastolic 65–84; PULSE 57–65; RESP 18–20; TEMP 36.5–36.7; O2SAT 97–100
[2021-09-06 08:03] LABS: Abs Immature Grans 0.03 10^3/uL (0.0-0.06); Absolute Eosinophil Count 0.01 10^3/uL (0.0-0.7); Absolute Lymphocyte Count 0.77 10^3/uL (1.2-3.4); Eosinophils % 0.6; HCT 22.6 % (40.0-50.0); HGB 7.8 g/dL (13.5-17.5); Immature Grans % 1.9; MCH 29.4 pg (27.0-33.0); MCHC 34.5 % (32.0-36.0); MCV 85 fL (80-95); Monocytes % 32.5; RBC 2.65 10^6/uL (4.36-5.78); RDW-SD 37.2 fL
[2021-09-06 08:09] LABS: Diff Comment Diff Reviewed; RBC Morphology Normal
[2021-09-06] MEDS: Normal Saline Flush 10 ML SYR IVP (08:11)
[2021-09-06 08:14] LABS: Absolute Neutrophil Count 0.23 10^3/uL (1.2-6.7); Platelet Count 6 10^3/uL (130-400); WBC 1.54 10^3/uL (4.4-10.8)
[2021-09-09 08:37] VITALS: BP 120/67; PULSE 60; RESP 18; TEMP 36.6; O2SAT 98
[2021-09-09 10:25] VITALS: BP 105/62; PULSE 58; RESP 18; TEMP 36.5; O2SAT 98
== END 2021-09-10 23:59 | disposition home or self-care (01) ==
LOC: INF 00:47
PROVIDERS: PCP Internal Medicine; Visit Provider Internal Medicine Hematology & Oncology
DX: C92.00 Acute myeloblastic leukemia, not having achieved remission (principal); Z45.2 Encounter for adjustment and management of vascular access device
CPT/HCPCS: 36430; 36591; 80053; 86850; 86900; 86901; 86920; 96523; 85025; 86644; P9016; P9035

== ENCOUNTER 2021-10-09 13:00 | Outpatient (RCR) | payer MEDICARE, SELFPAY ==
[2021-09-09 07:57] LABS: HCT 24.2 % (40.0-50.0); HGB 8.4 g/dL (13.5-17.5); MCH 29.4 pg (27.0-33.0); MCHC 34.7 % (32.0-36.0); MCV 85 fL (80-95); MPV 9.1 fL (8.0-11.0); RBC 2.86 10^6/uL (4.36-5.78); RDW 11.9 % (11.8-14.1); RDW-SD 36.7 fL
[2021-09-09 08:11] LABS: WBC 1.44 10^3/uL (4.4-10.8)
[2021-09-09 08:23] LABS: Bands % 3; Platelet Count 13 10^3/uL (130-400)
[2021-09-09 08:24] LABS: Absolute Lymphocyte Count 1.02 10^3/uL (1.2-3.4); Absolute Monocyte Count 0.13 10^3/uL (0.1-0.8); Absolute Neutrophil Count 0.23 10^3/uL (1.2-6.7); Atypical Lymphocytes % 3; Metamyelocytes % 1
[2021-09-09 08:25] LABS: Diff Comment Manual Differential; Other Cells % 5; RBC Morphology Normal
[2021-09-11 00:04] VITALS: BP 105/62; PULSE 58; RESP 18; TEMP 36.5
[2021-09-11] MEDS: Normal Saline Flush 10 ML SYR IVP (08:00)
[2021-09-11 08:09] LABS: MCHC 35.7 % (32.0-36.0); MCV 84 fL (80-95); MPV 9.8 fL (8.0-11.0); RDW 11.7 % (11.8-14.1); RDW-SD 35.6 fL
[2021-09-11 08:32] LABS: Bands % 4
[2021-09-11 08:33] LABS: Absolute Basophil Count 0.01 10^3/uL (0.0-0.2); Absolute Lymphocyte Count 0.99 10^3/uL (1.2-3.4); Atypical Lymphocytes % 2; Metamyelocytes % 2; Other Cells % 3
[2021-09-11 08:34] LABS: Diff Comment Manual Differential; Ovalocytes 2+
[2021-09-11 08:35] LABS: Target Cells 2+
[2021-09-11 08:39] LABS: WBC 1.48 10^3/uL (4.4-10.8)
[2021-09-11 08:40] LABS: HCT 22.7 % (40.0-50.0); HGB 8.1 g/dL (13.5-17.5); Platelet Count 8 10^3/uL (130-400)
[2021-09-11 13:10] VITALS: BP 128/72; PULSE 62; RESP 18; TEMP 36.3; O2SAT 99
[2021-09-11 13:46] VITALS: BP 126/76; PULSE 63; RESP 17; TEMP 36.7; O2SAT 98
[2021-09-13] VITALS (8 sets, daily range): BP systolic 119–146; BP diastolic 72–79; PULSE 62–82; RESP 16–17; TEMP 36.3–36.8; O2SAT 97–99
[2021-09-13 08:43] LABS: Abs Immature Grans 0.02 10^3/uL (0.0-0.06); HCT 22.3 % (40.0-50.0); HGB 7.6 g/dL (13.5-17.5); MCH 28.7 pg (27.0-33.0); MCHC 34.1 % (32.0-36.0); MCV 84 fL (80-95); MPV 9.9 fL (8.0-11.0); RBC 2.65 10^6/uL (4.36-5.78); RDW 11.6 % (11.8-14.1); RDW-SD 35.8 fL
[2021-09-13] MEDS: Normal Saline Flush 10 ML SYR IVP ×2 (09:02→11:41)
[2021-09-13 09:09] LABS: Bands % 3
[2021-09-13 09:10] LABS: Absolute Basophil Count 0.02 10^3/uL (0.0-0.2); Absolute Eosinophil Count 0.04 10^3/uL (0.0-0.7); Absolute Lymphocyte Count 1.08 10^3/uL (1.2-3.4); Absolute Monocyte Count 0.34 10^3/uL (0.1-0.8); Atypical Lymphocytes % 1; Metamyelocytes % 2; Other Cells % 1
[2021-09-13 09:11] LABS: Diff Comment Manual Differential; Hypochromasia 2+
[2021-09-13 09:16] LABS: Absolute Neutrophil Count 0.25 10^3/uL (1.2-6.7); Platelet Count 13 10^3/uL (130-400)
[2021-09-18] VITALS (7 sets, daily range): BP systolic 112–138; BP diastolic 69–76; PULSE 68–77; RESP 17; TEMP 36.4–36.7; O2SAT 97–100
[2021-09-18] MEDS: Normal Saline Flush 10 ML SYR IVP (08:12)
[2021-09-18 08:15] LABS: Abs Immature Grans 0.02 10^3/uL (0.0-0.06); HCT 21.3 % (40.0-50.0); HGB 7.5 g/dL (13.5-17.5); MCH 29.6 pg (27.0-33.0); MCHC 35.2 % (32.0-36.0); MCV 84 fL (80-95); RBC 2.53 10^6/uL (4.36-5.78); RDW 12.1 % (11.8-14.1); RDW-SD 37.2 fL
[2021-09-18 08:33] LABS: WBC 1.91 10^3/uL (4.4-10.8)
[2021-09-18 08:35] LABS: Absolute Lymphocyte Count 0.96 10^3/uL (1.2-3.4); Absolute Monocyte Count 0.42 10^3/uL (0.1-0.8); Metamyelocytes % 2; Myelocytes % 4; Other Cells % 8; Platelet Count 24 10^3/uL (130-400)
[2021-09-18 08:36] LABS: Absolute Neutrophil Count 0.27 10^3/uL (1.2-6.7); Diff Comment Manual Differential; RBC Morphology Normal
[2021-09-19 10:50] LABS: WBC 1.77 10^3/uL (4.4-10.8)
[2021-09-20 08:02] LABS: HCT 23.8 % (40.0-50.0); HGB 8.3 g/dL (13.5-17.5); MCH 29.2 pg (27.0-33.0); MCHC 34.9 % (32.0-36.0); MCV 84 fL (80-95); MPV 9.9 fL (8.0-11.0); RBC 2.84 10^6/uL (4.36-5.78); RDW 11.9 % (11.8-14.1); RDW-SD 36.2 fL
[2021-09-20] MEDS: Normal Saline Flush 10 ML SYR IVP (08:06)
[2021-09-20 08:21] LABS: WBC 1.84 10^3/uL (4.4-10.8)
[2021-09-20 08:36] LABS: Absolute Lymphocyte Count 1.34 10^3/uL (1.2-3.4); Absolute Monocyte Count 0.13 10^3/uL (0.1-0.8); Absolute Neutrophil Count 0.09 10^3/uL (1.2-6.7); Diff Comment Manual Differential; Other Cells % 15; Platelet Count 12 10^3/uL (130-400); RBC Morphology Normal
[2021-09-20 13:42] VITALS: BP 149/85; PULSE 66; RESP 17; TEMP 36.2; O2SAT 99
[2021-09-20 14:14] VITALS: BP 116/68; PULSE 77; RESP 17; TEMP 36.5; O2SAT 99
[2021-09-20 14:20] VITALS: BP 116/68; PULSE 77; RESP 17; TEMP 36.5; O2SAT 99
[2021-09-20 14:44] VITALS: BP 127/74; PULSE 68; RESP 17; TEMP 36.6; O2SAT 98
[2021-09-23] VITALS (7 sets, daily range): BP systolic 123–147; BP diastolic 66–81; PULSE 66–72; RESP 17–18; TEMP 36.4–36.8; O2SAT 97–99
[2021-09-23] MEDS: Normal Saline Flush 10 ML SYR IVP ×2 (07:54→11:40)
[2021-09-23 08:10] LABS: HCT 22.3 % (40.0-50.0); HGB 7.8 g/dL (13.5-17.5); MCH 29.3 pg (27.0-33.0); MCV 84 fL (80-95); RBC 2.66 10^6/uL (4.36-5.78); RDW 11.9 % (11.8-14.1); RDW-SD 36.4 fL
[2021-09-23 08:15] LABS: WBC 1.96 10^3/uL (4.4-10.8)
[2021-09-23 08:24] LABS: Absolute Eosinophil Count 0.02 10^3/uL (0.0-0.7); Absolute Lymphocyte Count 1.31 10^3/uL (1.2-3.4); Absolute Monocyte Count 0.29 10^3/uL (0.1-0.8); Absolute Neutrophil Count 0.14 10^3/uL (1.2-6.7); Other Cells % 9; Platelet Count 11 10^3/uL (130-400)
[2021-09-23 08:25] LABS: Diff Comment Manual Differential; RBC Morphology Normal
[2021-09-25] MEDS: Normal Saline Flush 10 ML SYR IVP ×2 (07:57→13:29)
[2021-09-25 08:09] LABS: Abs Immature Grans 0.01 10^3/uL (0.0-0.06); HCT 24.1 % (40.0-50.0); HGB 8.5 g/dL (13.5-17.5); MCH 29.4 pg (27.0-33.0); MCHC 35.3 % (32.0-36.0); MCV 83 fL (80-95); RBC 2.89 10^6/uL (4.36-5.78); RDW 11.9 % (11.8-14.1); RDW-SD 36.4 fL
[2021-09-25 08:39] LABS: Atypical Lymphocytes % 0; Bands % 0
[2021-09-25 08:41] LABS: Metamyelocytes % 1; Myelocytes % 2
[2021-09-25 08:42] LABS: Diff Comment Manual Differential; RBC Morphology Normal
[2021-09-25 08:50] LABS: Absolute Lymphocyte Count 1.41 10^3/uL (1.2-3.4); Absolute Monocyte Count 0.34 10^3/uL (0.1-0.8)
[2021-09-25 08:55] LABS: Absolute Neutrophil Count 0.29 10^3/uL (1.2-6.7)
[2021-09-25 08:59] LABS: Platelet Count 11 10^3/uL (130-400)
[2021-09-25 12:50] VITALS: BP 130/67; PULSE 74; RESP 18; TEMP 36.6; O2SAT 97
[2021-09-25 13:20] VITALS: BP 119/67; PULSE 71; RESP 17; TEMP 36.9; O2SAT 97
[2021-09-27] MEDS: Normal Saline Flush 10 ML SYR IVP (08:03)
[2021-09-27 08:29] LABS: Abs Immature Grans 0.03 10^3/uL (0.0-0.06); HCT 23.3 % (40.0-50.0); MCH 28.7 pg (27.0-33.0); MCHC 34.3 % (32.0-36.0); MCV 84 fL (80-95); MPV 11.7 fL (8.0-11.0); RBC 2.79 10^6/uL (4.36-5.78); RDW 11.7 % (11.8-14.1); RDW-SD 35.8 fL; WBC 2.43 10^3/uL (4.4-10.8)
[2021-09-27 08:59] LABS: Absolute Lymphocyte Count 1.56 10^3/uL (1.2-3.4); Absolute Monocyte Count 0.44 10^3/uL (0.1-0.8); Atypical Lymphocytes % 2; Metamyelocytes % 3; Myelocytes % 1
[2021-09-27 09:00] LABS: Other Cells % 4
[2021-09-27 09:01] LABS: Diff Comment Manual Differential; RBC Morphology Normal
[2021-09-27 09:04] LABS: Platelet Count 4 10^3/uL (130-400)
[2021-09-27 09:06] LABS: Absolute Neutrophil Count 0.24 10^3/uL (1.2-6.7)
[2021-09-27 12:52] VITALS: BP 157/80; PULSE 88; RESP 17; TEMP 36.7; O2SAT 96
[2021-09-27 13:42] VITALS: BP 135/63; PULSE 76; RESP 17; TEMP 36.8; O2SAT 95
[2021-09-30] VITALS (7 sets, daily range): BP systolic 119–147; BP diastolic 68–79; PULSE 63–71; RESP 17–18; TEMP 36.5–36.6; O2SAT 97–100
[2021-09-30] MEDS: Normal Saline Flush 10 ML SYR IVP ×2 (07:57→11:54)
[2021-09-30 08:07] LABS: HCT 21.5 % (40.0-50.0); HGB 7.8 g/dL (13.5-17.5); MCH 29.9 pg (27.0-33.0); MCHC 36.3 % (32.0-36.0); MCV 82 fL (80-95); MPV 10.1 fL (8.0-11.0); RBC 2.61 10^6/uL (4.36-5.78); RDW 11.9 % (11.8-14.1); RDW-SD 35.5 fL; WBC 2.56 10^3/uL (4.4-10.8)
[2021-09-30 08:22] LABS: Absolute Eosinophil Count 0.03 10^3/uL (0.0-0.7); Absolute Lymphocyte Count 1.66 10^3/uL (1.2-3.4); Absolute Monocyte Count 0.26 10^3/uL (0.1-0.8); Absolute Neutrophil Count 0.28 10^3/uL (1.2-6.7); Atypical Lymphocytes % 3; Diff Comment Manual Differential; Other Cells % 13; Platelet Count 8 10^3/uL (130-400); RBC Morphology Normal
[2021-10-02 08:02] VITALS: BP 127/74; PULSE 71; RESP 17; TEMP 36.6; O2SAT 97
[2021-10-02] MEDS: Normal Saline Flush 10 ML SYR IVP (08:03)
[2021-10-02 08:07] LABS: Abs Immature Grans 0.02 10^3/uL (0.0-0.06); HCT 22.8 % (40.0-50.0); HGB 8.1 g/dL (13.5-17.5); MCH 29.6 pg (27.0-33.0); MCHC 35.5 % (32.0-36.0); MCV 83 fL (80-95); MPV 9.7 fL (8.0-11.0); RBC 2.74 10^6/uL (4.36-5.78); RDW 11.9 % (11.8-14.1); RDW-SD 35.8 fL; WBC 2.52 10^3/uL (4.4-10.8)
[2021-10-02 08:31] LABS: Absolute Eosinophil Count 0.03 10^3/uL (0.0-0.7); Absolute Lymphocyte Count 1.26 10^3/uL (1.2-3.4); Absolute Monocyte Count 0.28 10^3/uL (0.1-0.8); Bands % 0
[2021-10-02 08:32] LABS: Diff Comment Manual Differential; Metamyelocytes % 2; RBC Morphology Normal
[2021-10-02 08:34] LABS: Other Cells % 27
[2021-10-02 08:43] LABS: Absolute Neutrophil Count 0.23 10^3/uL (1.2-6.7); Platelet Count 19 10^3/uL (130-400)
[2021-10-02 12:50] VITALS: BP 106/71; PULSE 92; RESP 18; TEMP 36.4; O2SAT 97
[2021-10-02 13:34] VITALS: BP 117/69; PULSE 74; RESP 18; TEMP 36.6; O2SAT 98
[2021-10-04] VITALS (10 sets, daily range): BP systolic 116–135; BP diastolic 62–79; PULSE 71–81; RESP 15–20; TEMP 36.7–37; O2SAT 95–97
[2021-10-04 08:21] LABS: HCT 21.6 % (40.0-50.0); HGB 7.7 g/dL (13.5-17.5); MCH 29.6 pg (27.0-33.0); MCHC 35.6 % (32.0-36.0); MCV 83 fL (80-95); MPV 9.7 fL (8.0-11.0); RDW 11.7 % (11.8-14.1); RDW-SD 35.3 fL
[2021-10-04 08:33] LABS: Bands % 1; Platelet Count 16 10^3/uL (130-400)
[2021-10-04 08:34] LABS: Absolute Eosinophil Count 0.03 10^3/uL (0.0-0.7); Absolute Lymphocyte Count 1.65 10^3/uL (1.2-3.4); Absolute Monocyte Count 0.09 10^3/uL (0.1-0.8); Absolute Neutrophil Count 0.32 10^3/uL (1.2-6.7); Atypical Lymphocytes % 1; Diff Comment Manual Differential; Myelocytes % 1; Other Cells % 27; RBC Morphology Normal
[2021-10-07 08:08] LABS: Absolute Eosinophil Count 0.02 10^3/uL (0.0-0.7); MCH 29.1 pg (27.0-33.0); MCHC 33.7 % (32.0-36.0); MCV 86 fL (80-95); RBC 1.17 10^6/uL (4.36-5.78); RDW 11.8 % (11.8-14.1); RDW-SD 37.2 fL
[2021-10-07 08:21] LABS: WBC 1.73 10^3/uL (4.4-10.8)
[2021-10-07 08:22] LABS: HCT 10.1 % (40.0-50.0); HGB 3.4 g/dL (13.5-17.5); Platelet Count 4 10^3/uL (130-400)
[2021-10-07 08:29] LABS: Absolute Lymphocyte Count 1.16 10^3/uL (1.2-3.4); Absolute Monocyte Count 0.05 10^3/uL (0.1-0.8); Absolute Neutrophil Count 0.17 10^3/uL (1.2-6.7); Bands % 2; Other Cells % 19
[2021-10-07 08:30] LABS: Diff Comment Manual Differential; RBC Morphology Normal
[2021-10-07 09:32] LABS: Abs Immature Grans 0.04 10^3/uL (0.0-0.06); HCT 24.6 % (40.0-50.0); MCH 29.9 pg (27.0-33.0); MCHC 36.6 % (32.0-36.0); MCV 82 fL (80-95); MPV 9.4 fL (8.0-11.0); RBC 3.01 10^6/uL (4.36-5.78); RDW 11.8 % (11.8-14.1); RDW-SD 35.3 fL; WBC 4.83 10^3/uL (4.4-10.8)
[2021-10-07 09:37] LABS: Platelet Count 14 10^3/uL (130-400)
[2021-10-07 09:47] LABS: Absolute Eosinophil Count 0.05 10^3/uL (0.0-0.7); Absolute Lymphocyte Count 2.56 10^3/uL (1.2-3.4); Absolute Monocyte Count 0.58 10^3/uL (0.1-0.8); Absolute Neutrophil Count 0.34 10^3/uL (1.2-6.7); Other Cells % 27
[2021-10-07 09:48] LABS: Diff Comment Diff Reviewed; RBC Morphology Normal
[2021-10-07 13:43] VITALS: BP 123/72; PULSE 74; RESP 18; TEMP 36.8; O2SAT 98
[2021-10-07 13:58] VITALS: BP 128/75; PULSE 77; RESP 18; TEMP 36.9; O2SAT 98
[2021-10-07 14:02] VITALS: BP 134/80; PULSE 95; RESP 16; TEMP 36.6; O2SAT 97
[2021-10-09] MEDS: Normal Saline Flush 10 ML SYR IVP (07:53)
[2021-10-09 08:01] LABS: Abs Immature Grans 0.04 10^3/uL (0.0-0.06); HCT 22.8 % (40.0-50.0); HGB 8.2 g/dL (13.5-17.5); MCH 29.9 pg (27.0-33.0); MCV 83 fL (80-95); MPV 8.9 fL (8.0-11.0); RBC 2.74 10^6/uL (4.36-5.78); RDW 11.7 % (11.8-14.1); RDW-SD 35.3 fL
[2021-10-09 08:26] LABS: Bands % 1
[2021-10-09 08:27] LABS: Absolute Lymphocyte Count 2.05 10^3/uL (1.2-3.4); Absolute Monocyte Count 0.37 10^3/uL (0.1-0.8); Atypical Lymphocytes % 2; Metamyelocytes % 2; Myelocytes % 1; Other Cells % 27
[2021-10-09 08:28] LABS: Diff Comment Manual Differential; RBC Morphology Normal
[2021-10-09 08:38] LABS: Platelet Count 6 10^3/uL (130-400)
[2021-10-09 08:39] LABS: Absolute Neutrophil Count 0.45 10^3/uL (1.2-6.7)
[2021-10-09 13:05] VITALS: BP 123/69; PULSE 75; RESP 18; TEMP 36.5; O2SAT 97
== END 2021-10-10 23:59 | disposition home or self-care (01) ==
LOC: INF 13:00
PROVIDERS: PCP Internal Medicine; Visit Provider Internal Medicine Hematology & Oncology
DX: C92.00 Acute myeloblastic leukemia, not having achieved remission (principal)
CPT/HCPCS: 36430; 36591; 86850; 86900; 86901; 86920; 96365; 85025; 86644; P9016; P9035

== ENCOUNTER 2021-11-08 00:50 | Outpatient (RCR) | payer MEDICARE, SELFPAY ==
[2021-10-11] VITALS (8 sets, daily range): BP systolic 119–164; BP diastolic 69–83; PULSE 73–85; RESP 18; TEMP 36.3–36.6; O2SAT 97–100
[2021-10-11] MEDS: Normal Saline Flush 10 ML SYR IVP ×2 (07:55→11:52)
[2021-10-11 08:02] LABS: HGB 7.7 g/dL (13.5-17.5); MCH 30.2 pg (27.0-33.0); MCHC 36.7 % (32.0-36.0); MCV 82 fL (80-95); RBC 2.55 10^6/uL (4.36-5.78); RDW 11.7 % (11.8-14.1); RDW-SD 34.5 fL; WBC 4.31 10^3/uL (4.4-10.8)
[2021-10-11 08:27] LABS: Bands % 2
[2021-10-11 08:28] LABS: Absolute Lymphocyte Count 1.81 10^3/uL (1.2-3.4); Absolute Monocyte Count 0.43 10^3/uL (0.1-0.8); Myelocytes % 3; Other Cells % 37
[2021-10-11 08:29] LABS: Diff Comment Manual Differential; RBC Morphology Normal
[2021-10-11 08:32] LABS: Platelet Count 4 10^3/uL (130-400)
[2021-10-11 08:33] LABS: Absolute Neutrophil Count 0.34 10^3/uL (1.2-6.7)
[2021-10-14] VITALS (7 sets, daily range): BP systolic 122–147; BP diastolic 75–80; PULSE 61–78; RESP 18; TEMP 36.5–36.6; O2SAT 97–99
[2021-10-14] MEDS: Normal Saline Flush 10 ML SYR IVP ×2 (08:08→14:38)
[2021-10-14 08:47] LABS: HCT 21.5 % (40.0-50.0); HGB 7.6 g/dL (13.5-17.5); MCH 29.1 pg (27.0-33.0); MCHC 35.3 % (32.0-36.0); MCV 82 fL (80-95); MPV 9.3 fL (8.0-11.0); RBC 2.61 10^6/uL (4.36-5.78); RDW 11.8 % (11.8-14.1); RDW-SD 35.3 fL; WBC 4.37 10^3/uL (4.4-10.8)
[2021-10-14 09:09] LABS: Absolute Lymphocyte Count 2.58 10^3/uL (1.2-3.4); Absolute Monocyte Count 0.26 10^3/uL (0.1-0.8); Absolute Neutrophil Count 0.39 10^3/uL (1.2-6.7); Atypical Lymphocytes % 2; Bands % 1
[2021-10-14 09:10] LABS: Absolute Eosinophil Count 0.04 10^3/uL (0.0-0.7); Diff Comment Manual Differential; Other Cells % 25; Platelet Count 9 10^3/uL (130-400); RBC Morphology Normal
[2021-10-16] MEDS: Normal Saline Flush 10 ML SYR IVP ×2 (07:45→13:10)
[2021-10-16 08:00] LABS: Abs Immature Grans 0.06 10^3/uL (0.0-0.06); HCT 24.2 % (40.0-50.0); HGB 8.4 g/dL (13.5-17.5); MCH 28.8 pg (27.0-33.0); MCHC 34.7 % (32.0-36.0); MCV 83 fL (80-95); MPV 9.3 fL (8.0-11.0); RBC 2.92 10^6/uL (4.36-5.78); RDW 11.7 % (11.8-14.1); RDW-SD 35.1 fL; WBC 6.13 10^3/uL (4.4-10.8)
[2021-10-16 08:36] LABS: Absolute Basophil Count 0.06 10^3/uL (0.0-0.2); Absolute Eosinophil Count 0.12 10^3/uL (0.0-0.7); Absolute Lymphocyte Count 2.94 10^3/uL (1.2-3.4); Absolute Monocyte Count 1.84 10^3/uL (0.1-0.8); Diff Comment Manual Differential; Other Cells % 14; RBC Morphology Normal
[2021-10-16 08:40] LABS: Absolute Neutrophil Count 0.31 10^3/uL (1.2-6.7); Platelet Count 5 10^3/uL (130-400)
[2021-10-16 12:48] VITALS: BP 151/84; PULSE 78; RESP 16; TEMP 36.6; O2SAT 99
[2021-10-16 13:15] VITALS: BP 142/75; PULSE 71; RESP 16; TEMP 36.6; O2SAT 98
[2021-10-18 08:25] LABS: HCT 23.7 % (40.0-50.0); HGB 8.3 g/dL (13.5-17.5); MCH 29.3 pg (27.0-33.0); MCV 84 fL (80-95); MPV 10.9 fL (8.0-11.0); RBC 2.83 10^6/uL (4.36-5.78); RDW 11.8 % (11.8-14.1); RDW-SD 36.1 fL; WBC 5.64 10^3/uL (4.4-10.8)
[2021-10-18] MEDS: Normal Saline Flush 10 ML SYR IVP ×2 (08:25→13:36)
[2021-10-18 08:49] LABS: Absolute Basophil Count 0.06 10^3/uL (0.0-0.2); Absolute Eosinophil Count 0.06 10^3/uL (0.0-0.7); Absolute Lymphocyte Count 2.76 10^3/uL (1.2-3.4); Absolute Monocyte Count 1.07 10^3/uL (0.1-0.8); Metamyelocytes % 2; Other Cells % 28
[2021-10-18 08:50] LABS: Diff Comment Manual Differential; RBC Morphology Normal
[2021-10-18 08:55] LABS: Absolute Neutrophil Count 0.06 10^3/uL (1.2-6.7); Platelet Count 4 10^3/uL (130-400)
[2021-10-18 13:15] VITALS: BP 126/74; PULSE 77; RESP 17; TEMP 36.3; O2SAT 97
[2021-10-18 13:42] VITALS: BP 126/77; PULSE 71; RESP 16; TEMP 36.7; O2SAT 96
[2021-10-18 14:11] VITALS: BP 124/69; PULSE 71; RESP 16; TEMP 36.2; O2SAT 97
[2021-10-21] MEDS: Normal Saline Flush 10 ML SYR IVP ×2 (07:50→13:45)
[2021-10-21 08:18] LABS: HGB 7.6 g/dL (13.5-17.5); MCH 28.8 pg (27.0-33.0); MCHC 34.5 % (32.0-36.0); MCV 83 fL (80-95); MPV 10.7 fL (8.0-11.0); RBC 2.64 10^6/uL (4.36-5.78); RDW 11.7 % (11.8-14.1); RDW-SD 35.8 fL; WBC 7.71 10^3/uL (4.4-10.8)
[2021-10-21 08:34] LABS: Absolute Eosinophil Count 0.08 10^3/uL (0.0-0.7); Absolute Lymphocyte Count 3.24 10^3/uL (1.2-3.4); Absolute Monocyte Count 0.23 10^3/uL (0.1-0.8); Diff Comment Manual Differential; Other Cells % 48; RBC Morphology Normal
[2021-10-21 08:37] LABS: Platelet Count 3 10^3/uL (130-400)
[2021-10-21 08:38] LABS: Absolute Neutrophil Count 0.39 10^3/uL (1.2-6.7)
[2021-10-21 11:22] VITALS: BP 156/79; PULSE 80; RESP 18; TEMP 36.7; O2SAT 97
[2021-10-21 11:37] VITALS: BP 124/75; PULSE 81; RESP 18; TEMP 36.8; O2SAT 98
[2021-10-21 11:53] VITALS: BP 123/74; PULSE 74; RESP 18; TEMP 36.8; O2SAT 98
[2021-10-21 12:23] VITALS: BP 125/77; PULSE 74; RESP 18; TEMP 36.9; O2SAT 96
[2021-10-21 13:10] VITALS: BP 135/79; PULSE 75; RESP 18; TEMP 36.9; O2SAT 95
[2021-10-21 13:49] VITALS: BP 127/62; PULSE 73; RESP 18; TEMP 36.8; O2SAT 97
[2021-10-23] VITALS (7 sets, daily range): BP systolic 124–163; BP diastolic 73–80; PULSE 72–82; RESP 16–18; TEMP 36.3–36.6; O2SAT 96–98
[2021-10-23] MEDS: Normal Saline Flush 10 ML SYR IVP (07:52)
[2021-10-23 08:00] LABS: Abs Immature Grans 0.03 10^3/uL (0.0-0.06); HCT 23.1 % (40.0-50.0); HGB 7.9 g/dL (13.5-17.5); MCH 28.6 pg (27.0-33.0); MCHC 34.2 % (32.0-36.0); MCV 84 fL (80-95); MPV 10.4 fL (8.0-11.0); RBC 2.76 10^6/uL (4.36-5.78); RDW 11.9 % (11.8-14.1); RDW-SD 36.4 fL; WBC 7.73 10^3/uL (4.4-10.8)
[2021-10-23 08:12] LABS: ALT 74 U/L (16-63); AST 43 U/L (15-37); Albumin 3.7 g/dL (3.4-5.0); Alkaline Phosphatase 79 U/L (46-116); Anion Gap 7.2 mmol/L (3-11); BUN 20 mg/dL (7-18); Bilirubin, Total 0.5 mg/dL (0.2-1.0); CO2 27.8 mmol/L (21.0-32.0); Calcium 8.3 mg/dL (8.5-10.1); Chloride 106 mmol/L (98-107); Glucose 189 mg/dL (74-106); Potassium 4.2 mmol/L (3.5-5.1); Sodium 141 mmol/L (136-145); Total Protein 6.9 g/dL (6.4-8.2)
[2021-10-23 08:24] LABS: Absolute Lymphocyte Count 2.78 10^3/uL (1.2-3.4); Absolute Monocyte Count 3.25 10^3/uL (0.1-0.8); Other Cells % 19
[2021-10-23 08:25] LABS: Diff Comment Manual Differential; Hypochromasia 2+
[2021-10-23 08:32] LABS: Platelet Count 5 10^3/uL (130-400)
[2021-10-23 08:33] LABS: Absolute Neutrophil Count 0.23 10^3/uL (1.2-6.7)
[2021-10-25 08:17] LABS: HGB 8.5 g/dL (13.5-17.5); MCH 29.6 pg (27.0-33.0); MCHC 35.4 % (32.0-36.0); MCV 84 fL (80-95); MPV 9.3 fL (8.0-11.0); RBC 2.87 10^6/uL (4.36-5.78); RDW 12.1 % (11.8-14.1); RDW-SD 36.9 fL; WBC 8.54 10^3/uL (4.4-10.8)
[2021-10-25 08:30] LABS: Absolute Lymphocyte Count 5.98 10^3/uL (1.2-3.4); Absolute Monocyte Count 1.11 10^3/uL (0.1-0.8); Other Cells % 15
[2021-10-25 08:31] LABS: Diff Comment Manual Differential; RBC Morphology Normal
[2021-10-25 08:34] LABS: Absolute Neutrophil Count 0.17 10^3/uL (1.2-6.7); Platelet Count 7 10^3/uL (130-400)
[2021-10-25 13:44] VITALS: BP 153/87; PULSE 74; RESP 17; TEMP 36.7; O2SAT 97
[2021-10-25] MEDS: Normal Saline Flush 10 ML SYR IVP (14:23)
[2021-10-25 14:34] VITALS: BP 134/77; PULSE 69; RESP 16; TEMP 36.6; O2SAT 97
[2021-10-25 14:45] VITALS: BP 130/75; PULSE 70; RESP 16; TEMP 36.6; O2SAT 98
[2021-10-28 08:08] LABS: HCT 22.8 % (40.0-50.0); MCH 29.1 pg (27.0-33.0); MCHC 35.1 % (32.0-36.0); MCV 83 fL (80-95); MPV 10.1 fL (8.0-11.0); RBC 2.75 10^6/uL (4.36-5.78); RDW 12.1 % (11.8-14.1); RDW-SD 36.5 fL; WBC 9.45 10^3/uL (4.4-10.8)
[2021-10-28 08:30] LABS: Platelet Count 9 10^3/uL (130-400)
[2021-10-28 08:31] LABS: Absolute Lymphocyte Count 5.86 10^3/uL (1.2-3.4); Absolute Monocyte Count 0.57 10^3/uL (0.1-0.8); Absolute Neutrophil Count 0.19 10^3/uL (1.2-6.7); Bands % 1; Diff Comment Manual Differential; Other Cells % 30; RBC Morphology Normal
[2021-10-28] MEDS: Normal Saline Flush 10 ML SYR IVP (08:44)
[2021-10-28 13:40] VITALS: BP 150/81; PULSE 80; RESP 17; TEMP 36.6; O2SAT 96
[2021-10-28 13:55] VITALS: BP 113/67; PULSE 75; RESP 17; TEMP 36.6; O2SAT 96
[2021-10-30] MEDS: Normal Saline Flush 10 ML SYR IVP (07:59)
[2021-10-30 08:10] LABS: HCT 21.4 % (40.0-50.0); HGB 7.4 g/dL (13.5-17.5); MCHC 34.6 % (32.0-36.0); MCV 84 fL (80-95); MPV 10.3 fL (8.0-11.0); RBC 2.55 10^6/uL (4.36-5.78); RDW 12.1 % (11.8-14.1)
[2021-10-30 08:24] LABS: Absolute Lymphocyte Count 3.66 10^3/uL (1.2-3.4); Other Cells % 57
[2021-10-30 08:25] LABS: Diff Comment Manual Differential; Platelet Count 8 10^3/uL (130-400); RBC Morphology Normal
[2021-10-30 12:00] VITALS: BP 155/81; PULSE 88; RESP 16; TEMP 36.6; O2SAT 97
[2021-10-30 12:15] VITALS: BP 127/71; PULSE 79; RESP 16; TEMP 36.8; O2SAT 97
[2021-10-30 12:30] VITALS: BP 123/68; PULSE 74; RESP 18; TEMP 36.6; O2SAT 97
[2021-10-30 12:58] VITALS: BP 134/73; PULSE 76; RESP 16; TEMP 36.6; O2SAT 98
[2021-10-30 13:41] VITALS: BP 124/75; PULSE 74; RESP 16; TEMP 36.8; O2SAT 97
[2021-10-30 14:05] VITALS: BP 135/74; PULSE 77; RESP 17; TEMP 36.8; O2SAT 97
[2021-11-01] MEDS: Normal Saline Flush 10 ML SYR IVP (07:56)
[2021-11-01 08:03] LABS: HCT 22.7 % (40.0-50.0); HGB 8.1 g/dL (13.5-17.5); MCH 29.6 pg (27.0-33.0); MCHC 35.7 % (32.0-36.0); MCV 83 fL (80-95); MPV 9.9 fL (8.0-11.0); RBC 2.74 10^6/uL (4.36-5.78); RDW 12.1 % (11.8-14.1); RDW-SD 36.9 fL; WBC 11.19 10^3/uL (4.4-10.8)
[2021-11-01 08:23] LABS: Absolute Lymphocyte Count 4.03 10^3/uL (1.2-3.4); Bands % 3
[2021-11-01 08:24] LABS: Absolute Monocyte Count 0.67 10^3/uL (0.1-0.8); Metamyelocytes % 1; Myelocytes % 2; Other Cells % 48
[2021-11-01 08:25] LABS: Diff Comment Manual Differential; RBC Morphology Normal
[2021-11-01 08:29] LABS: Platelet Count 8 10^3/uL (130-400)
[2021-11-01 11:47] LABS: Absolute Neutrophil Count 0.78 10^3/uL (1.2-6.7)
[2021-11-01 12:44] VITALS: BP 90/47; PULSE 87; RESP 16; TEMP 36.6; O2SAT 98
[2021-11-01 13:00] VITALS: BP 98/47; PULSE 72; RESP 17; TEMP 36.6; O2SAT 98
[2021-11-01 13:13] VITALS: BP 98/47; PULSE 72; RESP 16; TEMP 36.6; O2SAT 98
[2021-11-01 13:30] VITALS: BP 121/73; PULSE 77; RESP 16; TEMP 36.8; O2SAT 96
[2021-11-04] VITALS (7 sets, daily range): BP systolic 123–158; BP diastolic 72–80; PULSE 68–90; RESP 16–20; TEMP 36.4–36.6; O2SAT 96–97
[2021-11-04] MEDS: Normal Saline Flush 10 ML SYR IVP ×2 (08:03→13:58)
[2021-11-04 08:17] LABS: Abs Immature Grans 0.11 10^3/uL (0.0-0.06); HCT 21.9 % (40.0-50.0); HGB 7.8 g/dL (13.5-17.5); MCH 29.4 pg (27.0-33.0); MCHC 35.6 % (32.0-36.0); MCV 83 fL (80-95); MPV 12.1 fL (8.0-11.0); RBC 2.65 10^6/uL (4.36-5.78); RDW 12.1 % (11.8-14.1); WBC 14.75 10^3/uL (4.4-10.8)
[2021-11-04 08:30] LABS: Absolute Lymphocyte Count 10.18 10^3/uL (1.2-3.4); Absolute Monocyte Count 0.89 10^3/uL (0.1-0.8); Bands % 1
[2021-11-04 08:31] LABS: Other Cells % 22
[2021-11-04 08:37] LABS: Absolute Neutrophil Count 0.44 10^3/uL (1.2-6.7)
[2021-11-04 08:38] LABS: Platelet Count 10 10^3/uL (130-400)
[2021-11-06] MEDS: Normal Saline Flush 10 ML SYR IVP (07:45)
[2021-11-06 08:13] LABS: HCT 23.5 % (40.0-50.0); HGB 8.1 g/dL (13.5-17.5); MCHC 34.5 % (32.0-36.0); MCV 84 fL (80-95); MPV 12.7 fL (8.0-11.0); RBC 2.79 10^6/uL (4.36-5.78); RDW 12.2 % (11.8-14.1); RDW-SD 37.3 fL; WBC 18.12 10^3/uL (4.4-10.8)
[2021-11-06 08:24] LABS: Absolute Neutrophil Count 0.72 10^3/uL (1.2-6.7)
[2021-11-06 08:25] LABS: Absolute Lymphocyte Count 11.96 10^3/uL (1.2-3.4); Absolute Monocyte Count 0.36 10^3/uL (0.1-0.8); Atypical Lymphocytes % 5; Diff Comment Manual Differential; Other Cells % 28; RBC Morphology Normal
[2021-11-06 08:39] LABS: Platelet Count 9 10^3/uL (130-400)
[2021-11-06 13:15] VITALS: BP 144/82; PULSE 82; RESP 16; TEMP 36.9; O2SAT 98
[2021-11-06 14:15] VITALS: BP 128/80; PULSE 73; RESP 16; TEMP 37; O2SAT 98
[2021-11-08] VITALS (7 sets, daily range): BP systolic 121–144; BP diastolic 73–83; PULSE 72–78; RESP 18; TEMP 36.2–36.6; O2SAT 96–98
[2021-11-08] MEDS: Normal Saline Flush 10 ML SYR IVP (08:07)
[2021-11-08 08:14] LABS: HCT 21.9 % (40.0-50.0); HGB 7.6 g/dL (13.5-17.5); MCH 29.2 pg (27.0-33.0); MCHC 34.7 % (32.0-36.0); MCV 84 fL (80-95); MPV 11.8 fL (8.0-11.0); RDW 12.4 % (11.8-14.1); RDW-SD 37.8 fL; WBC 17.15 10^3/uL (4.4-10.8)
[2021-11-08 08:31] LABS: Absolute Lymphocyte Count 12.01 10^3/uL (1.2-3.4); Absolute Neutrophil Count 0.51 10^3/uL (1.2-6.7)
[2021-11-08 08:32] LABS: Diff Comment Manual Differential; Other Cells % 27; RBC Morphology Normal
[2021-11-08 08:38] LABS: Platelet Count 9 10^3/uL (130-400)
[2021-11-11 13:45] VITALS: BP 156/85; PULSE 95; RESP 18; TEMP 36.6; O2SAT 95
[2021-11-11 14:07] VITALS: BP 125/81; PULSE 88; RESP 20; TEMP 36; O2SAT 95
== END 2021-11-10 23:59 | disposition home or self-care (01) ==
LOC: INF 00:50
PROVIDERS: PCP Internal Medicine; Visit Provider Internal Medicine Hematology & Oncology
DX: C92.00 Acute myeloblastic leukemia, not having achieved remission (principal); D69.6 Thrombocytopenia, unspecified; C92.01 Acute myeloblastic leukemia, in remission; Z45.2 Encounter for adjustment and management of vascular access device
CPT/HCPCS: 36430; 36591; 80053; 86850; 86900; 86901; 86920; 96365; 96366; 85025; 86644; P9016; P9035

== ENCOUNTER 2021-12-11 11:30 | Outpatient (RCR) | payer MEDICARE, SELFPAY ==
[2021-11-11 00:07] VITALS: BP 124/74; PULSE 78; RESP 18; TEMP 36.6
[2021-11-11 08:05] LABS: HGB 8.4 g/dL (13.5-17.5); MCH 29.9 pg (27.0-33.0); MCV 85 fL (80-95); MPV 10.2 fL (8.0-11.0); Nucleated RBC 0.1 % (0.0-0.3); RBC 2.81 10^6/uL (4.36-5.78); RDW 12.2 % (11.8-14.1); WBC 19.61 10^3/uL (4.4-10.8)
[2021-11-11 08:31] LABS: Platelet Count 5 10^3/uL (130-400)
[2021-11-11 08:32] LABS: Absolute Lymphocyte Count 14.32 10^3/uL (1.2-3.4); Absolute Monocyte Count 0.78 10^3/uL (0.1-0.8); Absolute Neutrophil Count 0.39 10^3/uL (1.2-6.7); Atypical Lymphocytes % 2; Diff Comment Manual Differential; Other Cells % 21; RBC Morphology Normal
[2021-11-11] MEDS: Normal Saline Flush 10 ML SYR IVP ×2 (08:42→14:08)
[2021-11-13] MEDS: Normal Saline Flush 10 ML SYR IVP ×2 (07:59→11:26)
[2021-11-13 08:13] LABS: Abs Immature Grans 0.08 10^3/uL (0.0-0.06); HGB 7.9 g/dL (13.5-17.5); MCH 29.3 pg (27.0-33.0); MCHC 34.3 % (32.0-36.0); MCV 85 fL (80-95); MPV 10.4 fL (8.0-11.0); RDW 12.3 % (11.8-14.1); RDW-SD 38.1 fL; WBC 22.21 10^3/uL (4.4-10.8)
[2021-11-13 08:52] LABS: Absolute Lymphocyte Count 6.89 10^3/uL (1.2-3.4); Absolute Monocyte Count 11.55 10^3/uL (0.1-0.8)
[2021-11-13 08:53] LABS: Diff Comment Manual Differential; Hypochromasia 2+; Other Cells % 16
[2021-11-13 08:58] LABS: Absolute Neutrophil Count 0.22 10^3/uL (1.2-6.7)
[2021-11-13 09:42] LABS: Platelet Count 5 10^3/uL (130-400)
[2021-11-13 11:28] VITALS: BP 151/75; PULSE 99; RESP 20; TEMP 36.4; O2SAT 95
[2021-11-13 11:43] VITALS: BP 126/78; PULSE 89; RESP 20; TEMP 36.6; O2SAT 95
[2021-11-13 12:15] VITALS: BP 126/75; PULSE 81; RESP 20; TEMP 36.4; O2SAT 95
[2021-11-13 13:10] VITALS: BP 123/78; PULSE 77; RESP 20; TEMP 36.6; O2SAT 97
[2021-11-13 13:52] VITALS: BP 128/79; PULSE 77; RESP 20; TEMP 36.6; O2SAT 97
[2021-11-15] MEDS: Normal Saline Flush 10 ML SYR IVP (07:54)
[2021-11-15 08:14] LABS: HCT 23.5 % (40.0-50.0); MCH 29.2 pg (27.0-33.0); MCV 86 fL (80-95); MPV 12.2 fL (8.0-11.0); RBC 2.74 10^6/uL (4.36-5.78); RDW 12.7 % (11.8-14.1); RDW-SD 39.4 fL; WBC 21.32 10^3/uL (4.4-10.8)
[2021-11-15 08:33] LABS: Absolute Lymphocyte Count 7.68 10^3/uL (1.2-3.4); Atypical Lymphocytes % 2
[2021-11-15 08:39] LABS: Absolute Monocyte Count 10.87 10^3/uL (0.1-0.8)
[2021-11-15 08:40] LABS: Diff Comment Manual Differential; Hypochromasia 2+; Other Cells % 10
[2021-11-15 08:49] LABS: Absolute Neutrophil Count 0.64 10^3/uL (1.2-6.7); Platelet Count 2 10^3/uL (130-400)
[2021-11-15 13:47] VITALS: BP 157/67; PULSE 87; RESP 18; TEMP 36.5; O2SAT 94
[2021-11-15 15:20] VITALS: BP 128/67; PULSE 78; RESP 18; TEMP 36.1; O2SAT 98
[2021-11-18] VITALS (7 sets, daily range): BP systolic 122–157; BP diastolic 63–85; PULSE 80–98; RESP 18; TEMP 36.5–36.8; O2SAT 95–96
[2021-11-18] MEDS: Normal Saline Flush 10 ML SYR IVP ×2 (07:58→11:52)
[2021-11-18 08:07] LABS: HCT 21.5 % (40.0-50.0); HGB 7.3 g/dL (13.5-17.5); MCH 29.3 pg (27.0-33.0); MCV 86 fL (80-95); MPV 10.1 fL (8.0-11.0); RBC 2.49 10^6/uL (4.36-5.78); RDW 12.5 % (11.8-14.1); RDW-SD 39.5 fL; WBC 22.72 10^3/uL (4.4-10.8)
[2021-11-18 08:37] LABS: Absolute Lymphocyte Count 18.63 10^3/uL (1.2-3.4); Absolute Monocyte Count 0.45 10^3/uL (0.1-0.8)
[2021-11-18 08:38] LABS: Diff Comment Manual Differential; Other Cells % 14; RBC Morphology Normal
[2021-11-18 08:43] LABS: Absolute Neutrophil Count 0.45 10^3/uL (1.2-6.7); Platelet Count 4 10^3/uL (130-400)
[2021-11-20] VITALS (7 sets, daily range): BP systolic 118–150; BP diastolic 53–78; PULSE 73–83; RESP 18–20; TEMP 35.9–36.7; O2SAT 95–98
[2021-11-20] MEDS: Normal Saline Flush 10 ML SYR IVP ×2 (08:10→12:05)
[2021-11-20 08:21] LABS: HCT 23.1 % (40.0-50.0); HGB 7.8 g/dL (13.5-17.5); MCH 28.9 pg (27.0-33.0); MCHC 33.8 % (32.0-36.0); MCV 86 fL (80-95); MPV 11.9 fL (8.0-11.0); RDW 12.8 % (11.8-14.1); RDW-SD 39.9 fL
[2021-11-20 08:43] LABS: Absolute Lymphocyte Count 15.95 10^3/uL (1.2-3.4); Absolute Monocyte Count 3.29 10^3/uL (0.1-0.8); Atypical Lymphocytes % 0; Bands % 0
[2021-11-20 08:44] LABS: Diff Comment Manual Differential; Other Cells % 20; RBC Morphology Normal
[2021-11-20 08:49] LABS: WBC 25.31 10^3/uL (4.4-10.8)
[2021-11-20 08:50] LABS: Platelet Count 5 10^3/uL (130-400)
[2021-11-20 08:51] LABS: Absolute Neutrophil Count 1.01 10^3/uL (1.2-6.7)
[2021-11-22] VITALS (8 sets, daily range): BP systolic 123–143; BP diastolic 71–80; PULSE 72–96; RESP 16–20; TEMP 36.2–36.9; O2SAT 95–99
[2021-11-22] MEDS: Normal Saline Flush 10 ML SYR IVP ×2 (08:01→11:43)
[2021-11-22 08:19] LABS: HCT 24.2 % (40.0-50.0); HGB 8.1 g/dL (13.5-17.5); MCH 28.9 pg (27.0-33.0); MCHC 33.5 % (32.0-36.0); MCV 86 fL (80-95); MPV 9.6 fL (8.0-11.0); RDW 13.1 % (11.8-14.1); RDW-SD 41.3 fL
[2021-11-22 08:26] LABS: WBC 27.99 10^3/uL (4.4-10.8)
[2021-11-22 08:30] LABS: Absolute Lymphocyte Count 21.27 10^3/uL (1.2-3.4); Absolute Neutrophil Count 0.56 10^3/uL (1.2-6.7); Diff Comment Manual Differential; Other Cells % 22; Platelet Count 7 10^3/uL (130-400); RBC Morphology Normal
[2021-11-25] MEDS: Normal Saline Flush 10 ML SYR IVP ×2 (07:53→14:16)
[2021-11-25 08:06] LABS: Abs Immature Grans 0.02 10^3/uL (0.0-0.06); HCT 25.9 % (40.0-50.0); MCH 29.7 pg (27.0-33.0); MCHC 34.7 % (32.0-36.0); MCV 86 fL (80-95); MPV 9.7 fL (8.0-11.0); RBC 3.03 10^6/uL (4.36-5.78); RDW 12.7 % (11.8-14.1); RDW-SD 39.6 fL
[2021-11-25 08:24] LABS: Absolute Lymphocyte Count 26.41 10^3/uL (1.2-3.4); Absolute Monocyte Count 0.35 10^3/uL (0.1-0.8)
[2021-11-25 08:25] LABS: Diff Comment Manual Differential; Other Cells % 23; RBC Morphology Normal
[2021-11-25 08:32] LABS: Platelet Count 3 10^3/uL (130-400); WBC 35.21 10^3/uL (4.4-10.8)
[2021-11-25 08:33] LABS: Absolute Neutrophil Count 0.35 10^3/uL (1.2-6.7)
[2021-11-25 13:48] VITALS: BP 137/80; PULSE 96; RESP 20; TEMP 36.9; O2SAT 95
[2021-11-25 14:10] VITALS: BP 116/73; PULSE 84; RESP 16; TEMP 36.9; O2SAT 95
[2021-11-27 08:14] LABS: Abs Immature Grans 0.16 10^3/uL (0.0-0.06); HCT 25.8 % (40.0-50.0); HGB 8.6 g/dL (13.5-17.5); MCH 28.8 pg (27.0-33.0); MCHC 33.3 % (32.0-36.0); MCV 86 fL (80-95); MPV 11.2 fL (8.0-11.0); RBC 2.99 10^6/uL (4.36-5.78); RDW 12.8 % (11.8-14.1)
[2021-11-27 08:22] LABS: Absolute Lymphocyte Count 35.93 10^3/uL (1.2-3.4); Absolute Monocyte Count 0.88 10^3/uL (0.1-0.8); Other Cells % 15
[2021-11-27 08:28] LABS: Platelet Count 8 10^3/uL (130-400); WBC 43.82 10^3/uL (4.4-10.8)
[2021-11-27 08:29] LABS: Absolute Neutrophil Count 0.44 10^3/uL (1.2-6.7)
[2021-11-27 11:50] VITALS: BP 149/78; PULSE 92; RESP 18; TEMP 36.8; O2SAT 96
[2021-11-27 12:11] VITALS: BP 126/80; PULSE 85; RESP 16; TEMP 36.5; O2SAT 97
[2021-11-29 08:01] LABS: HCT 23.7 % (40.0-50.0); MCHC 33.8 % (32.0-36.0); MCV 86 fL (80-95); MPV 11.7 fL (8.0-11.0); RBC 2.76 10^6/uL (4.36-5.78); RDW 12.9 % (11.8-14.1); RDW-SD 40.4 fL
[2021-11-29] MEDS: Normal Saline Flush 10 ML SYR IVP (08:15)
[2021-11-29 08:37] LABS: Absolute Lymphocyte Count 32.59 10^3/uL (1.2-3.4); Absolute Monocyte Count 0.41 10^3/uL (0.1-0.8)
[2021-11-29 08:39] LABS: Platelet Count 6 10^3/uL (130-400); WBC 40.74 10^3/uL (4.4-10.8)
[2021-11-29 08:40] LABS: Absolute Neutrophil Count 0.41 10^3/uL (1.2-6.7); Diff Comment Manual Differential; Other Cells % 18; RBC Morphology Normal
[2021-11-29 11:45] VITALS: BP 149/84; PULSE 79; RESP 18; TEMP 36.7; O2SAT 97
[2021-11-29 12:00] VITALS: BP 115/71; PULSE 77; RESP 20; TEMP 36.7; O2SAT 96
[2021-11-29 12:20] VITALS: BP 121/73; PULSE 82; RESP 20; TEMP 36.7; O2SAT 96
[2021-11-29 12:45] VITALS: BP 127/75; PULSE 79; RESP 19; TEMP 36.9; O2SAT 97
[2021-11-29 13:45] VITALS: BP 136/76; PULSE 79; RESP 22; TEMP 36.8; O2SAT 96
[2021-11-29 14:20] VITALS: BP 133/80; BP 155/82; PULSE 79; PULSE 85; RESP 18; RESP 20; TEMP 36.5; TEMP 36.9; O2SAT 96
[2021-12-02 08:09] LABS: HGB 8.4 g/dL (13.5-17.5); MCH 29.2 pg (27.0-33.0); MCHC 33.6 % (32.0-36.0); MCV 87 fL (80-95); RBC 2.88 10^6/uL (4.36-5.78); RDW 13.1 % (11.8-14.1); RDW-SD 41.2 fL
[2021-12-02 08:26] LABS: WBC 47.74 10^3/uL (4.4-10.8)
[2021-12-02 08:50] LABS: Platelet Count 4 10^3/uL (130-400)
[2021-12-02 08:51] LABS: Absolute Lymphocyte Count 23.39 10^3/uL (1.2-3.4); Absolute Monocyte Count 16.23 10^3/uL (0.1-0.8); Other Cells % 17
[2021-12-02 08:52] LABS: Diff Comment Manual Differential
[2021-12-02 08:53] LABS: Hypochromasia 2+
[2021-12-02 11:50] VITALS: BP 127/78; PULSE 82; RESP 18; TEMP 36.7; O2SAT 96
[2021-12-02 12:15] VITALS: BP 125/71; PULSE 79; RESP 16; TEMP 36.7; O2SAT 96
[2021-12-02 12:45] VITALS: BP 128/73; PULSE 82; RESP 16; TEMP 36.5; O2SAT 95
[2021-12-02 13:40] VITALS: BP 126/73; PULSE 77; RESP 16; TEMP 36.7; O2SAT 96
[2021-12-02 14:10] VITALS: BP 133/75; PULSE 82; RESP 16; TEMP 36.7; O2SAT 96
[2021-12-04] MEDS: Normal Saline Flush 10 ML SYR IVP (07:58)
[2021-12-04 08:08] LABS: Abs Immature Grans 0.16 10^3/uL (0.0-0.06); HCT 26.2 % (40.0-50.0); HGB 8.8 g/dL (13.5-17.5); MCHC 33.6 % (32.0-36.0); MCV 87 fL (80-95); MPV 9.4 fL (8.0-11.0); RBC 3.03 10^6/uL (4.36-5.78); RDW 13.5 % (11.8-14.1); RDW-SD 42.5 fL
[2021-12-04 08:43] LABS: Absolute Lymphocyte Count 42.42 10^3/uL (1.2-3.4); Absolute Monocyte Count 2.26 10^3/uL (0.1-0.8); Atypical Lymphocytes % 0; Other Cells % 21
[2021-12-04 08:44] LABS: Diff Comment Manual Differential; RBC Morphology Normal
[2021-12-04 08:50] LABS: WBC 56.56 10^3/uL (4.4-10.8)
[2021-12-04 08:51] LABS: Platelet Count 6 10^3/uL (130-400)
[2021-12-04 13:40] VITALS: BP 130/83; PULSE 102; RESP 16; TEMP 36.9; O2SAT 96
[2021-12-04 14:00] VITALS: BP 131/79; PULSE 90; RESP 16; TEMP 37.1; O2SAT 96
[2021-12-06] MEDS: Normal Saline Flush 10 ML SYR IVP (08:06)
[2021-12-06 08:19] LABS: Abs Immature Grans 0.09 10^3/uL (0.0-0.06); HCT 24.5 % (40.0-50.0); HGB 8.5 g/dL (13.5-17.5); MCH 29.7 pg (27.0-33.0); MCHC 34.7 % (32.0-36.0); MCV 86 fL (80-95); MPV 11.9 fL (8.0-11.0); Nucleated RBC 0.1 % (0.0-0.3); RBC 2.86 10^6/uL (4.36-5.78); RDW 13.5 % (11.8-14.1); RDW-SD 42.3 fL
[2021-12-06 08:22] LABS: Platelet Count 4 10^3/uL (130-400)
[2021-12-06 08:23] LABS: WBC 58.59 10^3/uL (4.4-10.8)
[2021-12-06 08:31] LABS: Absolute Monocyte Count 13.48 10^3/uL (0.1-0.8)
[2021-12-06 08:32] LABS: Diff Comment Manual Differential; Other Cells % 20; RBC Morphology Normal
[2021-12-06 08:33] LABS: Absolute Lymphocyte Count 32.81 10^3/uL (1.2-3.4); Absolute Neutrophil Count 0.59 10^3/uL (1.2-6.7)
[2021-12-06 09:21] VITALS: BP 145/81; PULSE 90; RESP 16; TEMP 36.6; O2SAT 95
[2021-12-06 09:42] VITALS: BP 129/74; PULSE 80; RESP 16; TEMP 36.9; O2SAT 99
[2021-12-09] MEDS: Normal Saline Flush 10 ML SYR IVP (07:56)
[2021-12-09 08:18] LABS: Abs Immature Grans 0.19 10^3/uL (0.0-0.06); HCT 23.2 % (40.0-50.0); HGB 7.9 g/dL (13.5-17.5); MCH 29.2 pg (27.0-33.0); MCHC 34.1 % (32.0-36.0); MCV 86 fL (80-95); MPV 10.7 fL (8.0-11.0); RBC 2.71 10^6/uL (4.36-5.78); RDW 13.5 % (11.8-14.1); RDW-SD 42.3 fL
[2021-12-09 08:45] LABS: Absolute Lymphocyte Count 37.73 10^3/uL (1.2-3.4); Absolute Monocyte Count 19.21 10^3/uL (0.1-0.8); Absolute Neutrophil Count 1.37 10^3/uL (1.2-6.7); Diff Comment Manual Differential; Other Cells % 16
[2021-12-09 08:46] LABS: Hypochromasia 2+
[2021-12-09 08:50] LABS: Platelet Count 6 10^3/uL (130-400)
[2021-12-09 11:41] VITALS: BP 139/82; PULSE 102; RESP 18; TEMP 37.1; O2SAT 96
[2021-12-09 11:56] VITALS: BP 138/72; PULSE 92; RESP 17; TEMP 36.9; O2SAT 95
[2021-12-09 12:14] VITALS: BP 130/71; PULSE 94; RESP 17; TEMP 36.9; O2SAT 96
[2021-12-09 12:40] VITALS: BP 125/76; PULSE 82; RESP 17; TEMP 36.6; O2SAT 96
[2021-12-09 13:14] VITALS: BP 122/71; PULSE 91; RESP 17; TEMP 36.7; O2SAT 96
[2021-12-09 13:59] VITALS: BP 123/77; PULSE 81; RESP 16; TEMP 37.3; O2SAT 96
[2021-12-11] MEDS: Normal Saline Flush 10 ML SYR IVP ×2 (07:55→11:38)
[2021-12-11 11:44] VITALS: BP 138/79; PULSE 91; RESP 18; TEMP 36.7; O2SAT 96
[2021-12-11 12:00] VITALS: BP 130/78; PULSE 83; RESP 18; TEMP 36.6; O2SAT 95
[2021-12-11 12:15] VITALS: BP 126/74; PULSE 83; RESP 18; TEMP 36.6; O2SAT 96
[2021-12-11 12:45] VITALS: BP 126/75; PULSE 87; RESP 18; TEMP 36.7; O2SAT 96
[2021-12-11 13:30] VITALS: BP 110/68; PULSE 87; RESP 17; TEMP 36.5; O2SAT 95
[2021-12-11 13:55] VITALS: BP 120/68; PULSE 85; RESP 17; TEMP 36.7; O2SAT 94
== END 2021-12-11 23:59 | disposition home or self-care (01) ==
LOC: INF 11:30
PROVIDERS: PCP Internal Medicine; Visit Provider Internal Medicine Hematology & Oncology
DX: C92.00 Acute myeloblastic leukemia, not having achieved remission (principal); Z45.2 Encounter for adjustment and management of vascular access device
CPT/HCPCS: 36430; 36591; 86850; 86900; 86901; 86920; 96523; 85025; P9016; P9035

== ENCOUNTER 2022-01-01 13:30 | Outpatient (RCR) | payer MEDICARE, SELFPAY ==
[2021-12-11 08:09] LABS: Abs Immature Grans 0.08 10^3/uL (0.0-0.06); HCT 22.4 % (40.0-50.0); HGB 7.7 g/dL (13.5-17.5); MCH 29.7 pg (27.0-33.0); MCHC 34.4 % (32.0-36.0); MCV 87 fL (80-95); RBC 2.59 10^6/uL (4.36-5.78); RDW 13.3 % (11.8-14.1); RDW-SD 42.1 fL
[2021-12-11 08:27] LABS: Absolute Lymphocyte Count 40.15 10^3/uL (1.2-3.4); Absolute Monocyte Count 0.57 10^3/uL (0.1-0.8); Absolute Neutrophil Count 0.57 10^3/uL (1.2-6.7); Other Cells % 28
[2021-12-11 08:29] LABS: WBC 57.36 10^3/uL (4.4-10.8)
[2021-12-11 08:30] LABS: Platelet Count 6 10^3/uL (130-400)
[2021-12-12 00:16] VITALS: BP 120/68; PULSE 85; RESP 17; TEMP 36.7
[2021-12-13] VITALS (7 sets, daily range): BP systolic 123–147; BP diastolic 72–76; PULSE 81–89; RESP 18–22; TEMP 36.2–36.6; O2SAT 94–100
[2021-12-13] MEDS: Normal Saline Flush 10 ML SYR IVP (07:59)
[2021-12-13 08:14] LABS: MCH 28.8 pg (27.0-33.0); MCHC 33.3 % (32.0-36.0); MCV 86 fL (80-95); MPV 9.5 fL (8.0-11.0); RBC 2.78 10^6/uL (4.36-5.78); RDW 13.3 % (11.8-14.1); RDW-SD 42.1 fL
[2021-12-13 08:27] LABS: Absolute Lymphocyte Count 51.57 10^3/uL (1.2-3.4); Absolute Monocyte Count 0.68 10^3/uL (0.1-0.8)
[2021-12-13 08:28] LABS: Absolute Neutrophil Count 0.68 10^3/uL (1.2-6.7); Diff Comment Manual Differential; Other Cells % 22; RBC Morphology Normal
[2021-12-13 08:30] LABS: Platelet Count 5 10^3/uL (130-400); WBC 67.86 10^3/uL (4.4-10.8)
[2021-12-16] VITALS (7 sets, daily range): BP systolic 126–165; BP diastolic 74–83; PULSE 82–106; RESP 16–20; TEMP 36.6–37.2; O2SAT 93–96
[2021-12-16 08:59] LABS: Abs Immature Grans 0.14 10^3/uL (0.0-0.06); HCT 24.5 % (40.0-50.0); HGB 8.2 g/dL (13.5-17.5); MCH 29.4 pg (27.0-33.0); MCHC 33.5 % (32.0-36.0); MCV 88 fL (80-95); MPV 12.1 fL (8.0-11.0); RBC 2.79 10^6/uL (4.36-5.78); RDW 13.6 % (11.8-14.1); RDW-SD 43.6 fL
[2021-12-16] MEDS: Normal Saline Flush 10 ML SYR IVP ×3 (09:02→15:15)
[2021-12-16 09:14] LABS: ALT 58 U/L (16-63); AST 53 U/L (15-37); Albumin 3.3 g/dL (3.4-5.0); Alkaline Phosphatase 133 U/L (46-116); Anion Gap 6.1 mmol/L (3-11); BUN 12 mg/dL (7-18); Bilirubin, Total 0.4 mg/dL (0.2-1.0); CO2 29.9 mmol/L (21.0-32.0); Calcium 8.4 mg/dL (8.5-10.1); Chloride 104 mmol/L (98-107); Estimated GFR 80.47 (mL/min/1.73m2); Glucose 185 mg/dL (74-106); Potassium 4.1 mmol/L (3.5-5.1); Sodium 140 mmol/L (136-145); Total Protein 6.6 g/dL (6.4-8.2)
[2021-12-16 10:28] LABS: Platelet Count 4 10^3/uL (130-400); WBC 80.64 10^3/uL (4.4-10.8)
[2021-12-16 10:31] LABS: Absolute Lymphocyte Count 52.42 10^3/uL (1.2-3.4); Other Cells % 20
[2021-12-16 10:32] LABS: Diff Comment Manual Differential; RBC Morphology Normal
[2021-12-18] MEDS: Normal Saline Flush 10 ML SYR IVP ×2 (07:54→13:43)
[2021-12-18 08:08] LABS: Abs Immature Grans 0.12 10^3/uL (0.0-0.06); HCT 25.7 % (40.0-50.0); HGB 8.5 g/dL (13.5-17.5); MCH 29.1 pg (27.0-33.0); MCHC 33.1 % (32.0-36.0); MCV 88 fL (80-95); MPV 9.8 fL (8.0-11.0); RBC 2.92 10^6/uL (4.36-5.78); RDW 13.9 % (11.8-14.1); RDW-SD 44.5 fL
[2021-12-18 08:23] LABS: Absolute Lymphocyte Count 57.78 10^3/uL (1.2-3.4)
[2021-12-18 08:24] LABS: Absolute Monocyte Count 11.56 10^3/uL (0.1-0.8); Diff Comment Manual Differential
[2021-12-18 08:25] LABS: RBC Morphology Normal
[2021-12-18 08:30] LABS: WBC 88.89 10^3/uL (4.4-10.8)
[2021-12-18 08:32] LABS: Other Cells % 22; Platelet Count 9 10^3/uL (130-400)
[2021-12-18 13:40] VITALS: BP 114/72; PULSE 104; RESP 16; TEMP 36.3; O2SAT 94
[2021-12-18 14:00] VITALS: BP 126/80; PULSE 92; RESP 17; TEMP 37; O2SAT 94
[2021-12-20] VITALS (7 sets, daily range): BP systolic 117–131; BP diastolic 72–80; PULSE 82–91; RESP 17–18; TEMP 36.4–37.1; O2SAT 96–98
[2021-12-20] MEDS: Normal Saline Flush 10 ML SYR IVP (08:04)
[2021-12-20 08:12] LABS: HCT 23.8 % (40.0-50.0); HGB 7.9 g/dL (13.5-17.5); MCHC 33.2 % (32.0-36.0); MCV 88 fL (80-95); MPV 9.6 fL (8.0-11.0); RBC 2.72 10^6/uL (4.36-5.78); RDW-SD 44.8 fL
[2021-12-20 08:34] LABS: Absolute Lymphocyte Count 76.81 10^3/uL (1.2-3.4); Absolute Monocyte Count 0.97 10^3/uL (0.1-0.8); Diff Comment Manual Differential; Other Cells % 19; RBC Morphology Normal
[2021-12-20 08:40] LABS: WBC 97.23 10^3/uL (4.4-10.8)
[2021-12-20 08:41] LABS: Absolute Neutrophil Count 0.97 10^3/uL (1.2-6.7); Platelet Count 10 10^3/uL (130-400)
[2021-12-23] VITALS (7 sets, daily range): BP systolic 121–148; BP diastolic 60–81; PULSE 78–94; RESP 16–17; TEMP 36.2–37.1; O2SAT 93–96
[2021-12-23] MEDS: Normal Saline Flush 10 ML SYR IVP (07:51)
[2021-12-23 08:08] LABS: Abs Immature Grans 0.08 10^3/uL (0.0-0.06); HCT 24.1 % (40.0-50.0); HGB 8.1 g/dL (13.5-17.5); MCH 29.7 pg (27.0-33.0); MCHC 33.6 % (32.0-36.0); MCV 88 fL (80-95); MPV 11.1 fL (8.0-11.0); RBC 2.73 10^6/uL (4.36-5.78); RDW 14.4 % (11.8-14.1); RDW-SD 46.2 fL
[2021-12-23 08:18] LABS: Absolute Lymphocyte Count 66.39 10^3/uL (1.2-3.4); Absolute Monocyte Count 3.64 10^3/uL (0.1-0.8); Atypical Lymphocytes % 0; Bands % 0; Metamyelocytes % 2; Myelocytes % 1
[2021-12-23 08:19] LABS: Diff Comment Manual Differential; Other Cells % 20; RBC Morphology Normal
[2021-12-23 08:27] LABS: Platelet Count 5 10^3/uL (130-400); WBC 90.94 10^3/uL (4.4-10.8)
[2021-12-25] MEDS: Normal Saline Flush 10 ML SYR IVP (07:49)
[2021-12-25 08:04] LABS: HCT 25.3 % (40.0-50.0); HGB 8.4 g/dL (13.5-17.5); MCH 29.2 pg (27.0-33.0); MCHC 33.2 % (32.0-36.0); MCV 88 fL (80-95); MPV 9.8 fL (8.0-11.0); RBC 2.88 10^6/uL (4.36-5.78); RDW 14.2 % (11.8-14.1); RDW-SD 45.8 fL
[2021-12-25 08:19] LABS: Absolute Lymphocyte Count 78.52 10^3/uL (1.2-3.4); Other Cells % 10
[2021-12-25 08:42] LABS: Platelet Count 4 10^3/uL (130-400); WBC 88.22 10^3/uL (4.4-10.8)
[2021-12-25 08:43] LABS: Diff Comment Manual Differential; RBC Morphology Normal
[2021-12-25 11:47] VITALS: BP 153/79; PULSE 87; RESP 20; TEMP 36.6; O2SAT 94
[2021-12-25 12:05] VITALS: BP 118/74; PULSE 79; RESP 19; TEMP 36.7; O2SAT 96
[2021-12-25 12:20] VITALS: BP 124/69; PULSE 78; RESP 19; TEMP 36.9; O2SAT 94
[2021-12-25 12:50] VITALS: BP 122/74; PULSE 79; RESP 17; TEMP 36.9; O2SAT 95
[2021-12-25 13:45] VITALS: BP 128/78; PULSE 81; RESP 17; TEMP 36.9; O2SAT 96
[2021-12-25 14:20] VITALS: BP 133/81; PULSE 82; RESP 17; TEMP 36.9; O2SAT 96
[2021-12-27] MEDS: Normal Saline Flush 10 ML SYR IVP (07:50)
[2021-12-27 08:08] LABS: Abs Immature Grans 0.12 10^3/uL (0.0-0.06); HCT 27.1 % (40.0-50.0); HGB 8.9 g/dL (13.5-17.5); MCHC 32.8 % (32.0-36.0); MCV 88 fL (80-95); MPV 8.6 fL (8.0-11.0); RBC 3.07 10^6/uL (4.36-5.78); RDW 14.3 % (11.8-14.1)
[2021-12-27 08:28] LABS: WBC 89.33 10^3/uL (4.4-10.8)
[2021-12-27 08:29] LABS: Platelet Count 3 10^3/uL (130-400)
[2021-12-27 08:31] LABS: Absolute Lymphocyte Count 60.74 10^3/uL (1.2-3.4); Absolute Monocyte Count 3.57 10^3/uL (0.1-0.8); Absolute Neutrophil Count 0.89 10^3/uL (1.2-6.7); Diff Comment Manual Differential; Other Cells % 27; RBC Morphology Normal
[2021-12-27 13:34] VITALS: BP 142/80; PULSE 85; RESP 20; TEMP 36.6; O2SAT 95
[2021-12-27 14:02] VITALS: BP 130/81; PULSE 85; RESP 17; TEMP 37.3; O2SAT 96
[2021-12-30] VITALS (7 sets, daily range): BP systolic 123–146; BP diastolic 71–86; PULSE 74–87; RESP 16–17; TEMP 36.5–37; O2SAT 94–96
[2021-12-30] MEDS: Normal Saline Flush 10 ML SYR IVP (08:07)
[2021-12-30 08:16] LABS: Abs Immature Grans 0.08 10^3/uL (0.0-0.06); HCT 24.3 % (40.0-50.0); MCH 29.6 pg (27.0-33.0); MCHC 32.9 % (32.0-36.0); MCV 90 fL (80-95); RDW 14.6 % (11.8-14.1); RDW-SD 47.4 fL
[2021-12-30 08:30] LABS: Absolute Lymphocyte Count 59.41 10^3/uL (1.2-3.4); Absolute Monocyte Count 21.89 10^3/uL (0.1-0.8)
[2021-12-30 08:31] LABS: Diff Comment Manual Differential; Other Cells % 22
[2021-12-30 08:37] LABS: Platelet Count 4 10^3/uL (130-400)
[2021-12-30 08:38] LABS: Hypochromasia 2+; WBC 104.22 10^3/uL (4.4-10.8)
[2022-01-01] MEDS: Normal Saline Flush 10 ML SYR IVP (07:56)
[2022-01-01 08:32] LABS: HCT 26.2 % (40.0-50.0); HGB 8.6 g/dL (13.5-17.5); MCH 29.7 pg (27.0-33.0); MCHC 32.8 % (32.0-36.0); MCV 90 fL (80-95); MPV 9.5 fL (8.0-11.0); RDW 14.5 % (11.8-14.1); RDW-SD 47.5 fL
[2022-01-01 08:37] LABS: ALT 56 U/L (16-63); AST 52 U/L (15-37); Albumin 3.2 g/dL (3.4-5.0); Alkaline Phosphatase 157 U/L (46-116); Anion Gap 6.8 mmol/L (3-11); BUN 18 mg/dL (7-18); Bilirubin, Total 0.6 mg/dL (0.2-1.0); CO2 29.2 mmol/L (21.0-32.0); Calcium 8.6 mg/dL (8.5-10.1); Chloride 102 mmol/L (98-107); Estimated GFR 80.47 (mL/min/1.73m2); Glucose 124 mg/dL (74-106); Potassium 4.3 mmol/L (3.5-5.1); Sodium 138 mmol/L (136-145); Total Protein 6.8 g/dL (6.4-8.2)
[2022-01-01 08:40] LABS: Absolute Lymphocyte Count 96.16 10^3/uL (1.2-3.4); Other Cells % 15
[2022-01-01 08:41] LABS: Diff Comment Manual Differential; RBC Morphology Normal
[2022-01-01 08:42] LABS: WBC 113.13 10^3/uL (4.4-10.8)
[2022-01-01 08:43] LABS: Platelet Count 6 10^3/uL (130-400)
[2022-01-01 13:49] VITALS: BP 133/81; PULSE 108; RESP 20; TEMP 36.7; O2SAT 95
[2022-01-01 14:05] VITALS: BP 129/79; PULSE 97; RESP 20; TEMP 37.1; O2SAT 95
== END 2022-01-10 23:59 | disposition home or self-care (01) ==
LOC: INF 13:30
PROVIDERS: PCP Internal Medicine; Visit Provider Internal Medicine Hematology & Oncology
DX: C92.00 Acute myeloblastic leukemia, not having achieved remission (principal); D69.6 Thrombocytopenia, unspecified; Z45.2 Encounter for adjustment and management of vascular access device
CPT/HCPCS: 36430; 36591; 80053; 86850; 86900; 86901; 86920; 85025; P9016; P9035